=== PATIENT | female | born 1965 | race Caucasian/White ===

== ENCOUNTER 2021-03-09 08:36 | Outpatient (REF) | payer OTHER, SELFPAY ==
--- NOTE | ~2021-03-09 | MM_ITS ---
EXAMINATION: MM SCREENING DIGITAL BREAST TOMOSYNTHESIS, BILATERAL CLINICAL INFORMATION: Screening. Asymptomatic. The lifetime risk of breast cancer based on the Tyrer-Cuzick Model is 9%. COMPARISON: Mammography: 03/08/2020, 04/11/2014 TECHNIQUE: Digital breast tomosynthesis is performed in both the craniocaudal and mediolateral oblique views along with computer-aided detection (CAD). Synthesized 2D images are generated from the tomosynthesis. FINDINGS: There are scattered areas of fibroglandular density (ACR BI-RADS breast composition Category b). There are no significant masses, abnormal calcifications, or other abnormalities. There is asymmetry of the breasts, left slightly larger, similar to prior exam. Fine fibronodular pattern is similar to prior exam. No developing density. The axilla are unremarkable. MM/MM tomosynthesis screening BI IMPRESSION: No mammographic evidence of malignancy. ASSESSMENT: BI-RADS 2: Benign RECOMMENDATION: Routine annual mammography screening. This patient's information was entered into a reminder system with a target due date for their next mammogram.
== END 2021-03-09 08:37 | disposition home or self-care (01) ==
LOC: HO.MAMMO 08:36
PROVIDERS: PCP Family Medicine; Visit Provider Hospitalist
DX: Z12.31 Encounter for screening mammogram for malignant neoplasm of breast (principal)
CPT/HCPCS: 77063; 77067

== ENCOUNTER 2021-06-29 09:55 | Outpatient (REF) | payer OTHER, SELFPAY ==
[2021-06-29 11:43] LABS: Hematocrit 41.9 % (37.0-47.0); Hemoglobin 14.3 g/dl (12.0-16.0); Mean Corpuscular HGB Conc 34.1 g/dl (31.0-35.0); Mean Corpuscular Hemoglobin 29.7 pg (27.0-33.0); Mean Corpuscular Volume 86.9 fL (80.0-98.0); Mean Platelet Volume 10.9 fL (9.4-12.3); Platelet Count 205 X10*3/uL (160-400); Red Blood Count 4.82 X10*6/uL (4.20-5.50); Red Cell Distribution Width 12.9 % (11.0-16.0)
[2021-06-29 12:10] LABS: Alanine Aminotransferase 17 U/L (0-31); Albumin Level 3.8 g/dL (3.5-5.0); Alkaline Phosphatase 153 U/L (39-117); Anion Gap 12 (12-20); Aspartate Amino Transferase 25 U/L (5-31); Bilirubin Total 0.4 mg/dL (0.0-1.0); Blood Urea Nitrogen 7 mg/dL (9-16); Calcium 8.9 mg/dL (8.4-10.2); Carbon Dioxide 25 mmol/L (22-29); Chloride 107 mmol/L (96-108); Cholesterol 158 mg/dL; Estimated Glomerular Filt Rate > 60; Glucose Fasting 157 mg/dL (60-99); HDL Cholesterol 33 mg/dL; LDL Cholesterol Calculated 93 mg/dl; Sodium 140 mmol/L (135-145); Total Protein 6.7 g/dL (6.5-8.0); Triglycerides 164 mg/dL
[2021-06-29 12:35] LABS: TSH reflex Free T4 0.98 uIU/mL (0.32-4.0)
== END 2021-06-29 09:56 | disposition home or self-care (01) ==
LOC: HO.WFDLDS 09:55
PROVIDERS: Visit Provider Hospitalist
DX: Z01.818 Encounter for other preprocedural examination (principal); E11.65 Type 2 diabetes mellitus with hyperglycemia
CPT/HCPCS: 36415; 80053; 80061; 84443; 85027

== ENCOUNTER 2022-01-25 12:07 | Outpatient (REF) | payer OTHER, SELFPAY ==
[2022-01-25 13:41] LABS: Alanine Aminotransferase 18 U/L (0-31); Alkaline Phosphatase 161 U/L (39-117); Anion Gap 9 (12-20); Aspartate Amino Transferase 29 U/L (5-31); Bilirubin Direct 0.2 mg/dL (0.0-0.5); Bilirubin Total 0.4 mg/dL (0.0-1.0); Blood Urea Nitrogen 5 mg/dL (9-16); Calcium 9.2 mg/dL (8.4-10.2); Carbon Dioxide 27 mmol/L (22-29); Chloride 108 mmol/L (96-108); Estimated Glomerular Filt Rate > 60; Glucose Random 99 mg/dL (60-115); Potassium 4.1 mmol/L (3.3-5.1); Sodium 140 mmol/L (135-145); Total Protein 6.9 g/dL (6.5-8.0)
[2022-01-25 13:49] LABS: Estimated Average Glucose 140 mg/dL; Hemoglobin A1c % 6.5 %
[2022-01-25 14:29] LABS: Vitamin B12 211 pg/mL (200-900)
== END 2022-01-25 12:08 | disposition home or self-care (01) ==
LOC: HO.WFDLDS 12:07
PROVIDERS: Absent Provider Nurse Practitioner Family; PCP Family Medicine; Referring Provider Physician Assistant; Visit Provider Hospitalist
DX: Z00.00 Encounter for general adult medical examination without abnormal findings (principal); E11.65 Type 2 diabetes mellitus with hyperglycemia; E53.8 Deficiency of other specified B group vitamins
CPT/HCPCS: 36415; 80048; 80076; 82607; 83036

== ENCOUNTER 2022-03-22 15:37 | Outpatient (REF) | payer OTHER, SELFPAY ==
--- NOTE | ~2022-03-22 | MM_ITS ---
EXAMINATION: MM SCREENING DIGITAL BREAST TOMOSYNTHESIS, BILATERAL CLINICAL INFORMATION: Screening. Asymptomatic. The lifetime risk of breast cancer based on the Tyrer-Cuzick Model is 8%. COMPARISON: Mammography: 03/09/2021, 03/08/2020, 04/11/2014 TECHNIQUE: Digital breast tomosynthesis is performed in both the craniocaudal and mediolateral oblique views along with computer-aided detection (CAD). Synthesized 2D images are generated from the tomosynthesis. FINDINGS: There are scattered areas of fibroglandular density (ACR BI-RADS breast composition Category b). There is chronic stable asymmetry of the breast, left slightly larger similar to prior exams. The right breast shows no significant change in the parenchymal pattern. No interval mass or architectural abnormality. Neither breast shows abnormal calcifications. The axilla and skin contours are unremarkable. Left breast has increased attenuation retroareolar region, possibly incompletely compressed fibroglandular tissue. Patient will be recalled for additional imaging. MM/MM tomosynthesis screening BI IMPRESSION: Left: -Parenchymal asymmetry retroareolar region, possibly incompletely breast fibroglandular tissue. Right: -No mammographic evidence of malignancy. ASSESSMENT: BI-RADS 0: Incomplete - Need Additional Imaging Evaluation RECOMMENDATION: 1. Additional views of the left breast (spot CC nipple in profile, spot ML nipple in profile). 2. Targeted ultrasound if warranted after review of the additional views. 3. Radiology department staff will contact the patient for additional imaging. This patient's information was entered into a reminder system with a target due date for their next mammogram.
== END 2022-03-22 15:38 | disposition home or self-care (01) ==
LOC: HO.MAMMO 15:37
PROVIDERS: Visit Provider Family Medicine
DX: Z12.31 Encounter for screening mammogram for malignant neoplasm of breast (principal)
CPT/HCPCS: 77063; 77067

== ENCOUNTER 2022-03-28 10:52 | Outpatient (REF) | payer OTHER, SELFPAY | END 2022-03-28 10:53 | disposition home or self-care (01) | LOC: HO.LNP 10:52 | PROVIDERS: Visit Provider Hospitalist | DX: Z20.822 Contact with and (suspected) exposure to COVID-19 (principal); R11.0 Nausea | CPT/HCPCS: U0003; U0005 ==

== ENCOUNTER 2022-05-04 14:44 | Outpatient (REF) | payer OTHER, SELFPAY ==
--- NOTE | ~2022-05-04 | MM_ITS ---
EXAMINATION: MM DIAGNOSTIC DIGITAL BREAST TOMOSYNTHESIS, LEFT CLINICAL INFORMATION: Retroareolar asymmetric density COMPARISON: Mammography: March 22, 2022 and studies dating back to April 11, 2014 TECHNIQUE: Digital breast tomosynthesis is performed. 2D images are generated from the tomosynthesis. The following views are obtained: Spot compression views in craniocaudal and mediolateral oblique projections. FINDINGS: There are scattered areas of fibroglandular density (ACR BI-RADS breast composition Category b). Additional views show no significant mass, architectural abnormality, or abnormal calcifications. The questioned density compresses out to a similar appearance of prior studies. Results are provided to the patient at time of visit by the technologist. MM/MM tomosynthesis added views L IMPRESSION: No significant changes from prior imaging. ASSESSMENT: BI-RADS 1: Negative RECOMMENDATION: Routine annual mammography screening due in 12 months. This patient's information was entered into a reminder system with a target due date for their next mammogram.
== END 2022-05-04 14:45 | disposition home or self-care (01) ==
LOC: HO.MAMMO 14:44
PROVIDERS: PCP Family Medicine; Visit Provider Family Medicine
DX: N64.89 Other specified disorders of breast (principal)
CPT/HCPCS: 77061; 77065

== ENCOUNTER 2023-02-09 08:02 | Outpatient (AMB) | payer OTHER, SELFPAY ==
--- NOTE | 2023-02-09 08:10 | MHC.PC.OV ---
Vital Signs 02/09/23 08:15 Height 5 ft 3 in Weight 188 lb 8 oz BMI 33.4 BP 110/64 Blood Pressure Location Lt brachial Position Sitting Respiration 14 Pulse 93 Pulse Source Pulse Oximeter Temp 97.6 F Temp Source Temporal Artery Scan Pulse Oximetry (%) 97 Oxygen Delivery Method Room Air Intake Visit Reasons: f/u diabetes Intake Note: Patient is here to follow up with diabetic care. Patient's last A1C 11/23/2022 6.3%. Patient states her numbers have been way too high and she feels her insulin needs to be adjusted, her weight is still out of control and her stomach is in pain. Electrical Power Engineer Required: No Accompanied by: Self / Same As Patient Allergies No Known Allergies Allergy (Verified 02/09/23 08:11) Tobacco use date assessed: 02/09/23 Dental Screening Dental Screen Date: 02/09/23 Did you have a dental visit in the last 12 months?: Yes Did you have a dental problem in the last 6 months where you did not have access to dental care?: No Was dental information given to patient?: Patient has dentist HPI f/u diabetes HPI Details 57 y/o female presents to f/u diabetes. Had changed Trulicity to Ozempic per pt's request. Last A1c 11/23/22 6.3%. She reports her blood sugars have been high ever since we had switched to Ozempic. She reports blood sugars in the 200s. She reports ongoing abdominal pain and nausea. HPI Comments History of Present Illness Details Documentation assistance for Rashaun Caballero MD, was provided by Steve Quezada,? Payroll Administrative Assistant on 02/09/2023 8:56 AM DAR. I, Dr. Caballero, have read, observed, and verified documentation.? [facility] Medical History Insulin dependent diabetes mellitus LARIOS (nonalcoholic steatohepatitis) Surgical History H/O repair of left rotator cuff History of bilateral carpal tunnel release History of facial surgery History of knee surgery History of loop electrical excision procedure (LEEP) History of sinus surgery Family History Father Skin cancer Mental health disorder Substance abuse Mother Ovarian cancer Diabetes Mental health disorder Maternal Aunt Breast cancer Maternal Uncle Lung cancer Family/Other Mental health disorder Family/Other Substance abuse Social History (Updated 02/09/23 @ 08:26 by Kiki Mitchell) Housing: House (mobile home) Housing Other:: mobile home Alcohol intake: current Alcohol intake frequency: a few times a month Patient Tobacco Use Status: Never used Tobacco e-Cigarette/Vaping Use: Never Used Second Hand Smoke Exposure: No Use of substances other than those prescribed or required for medical reasons: Yes Substance Use Type: Crack/Cocaine Last Used Substance: Weeks (ago) Last Used Substance Other:: 1 year ago Currently Displaying Signs/Symptoms of Drug Intoxication Withdrawal: No Have you been hit, kicked, punched, or otherwise hurt by someone within the past year? If so, by whom?: No Do you feel safe in your current relationship?: No Current Relationship Is there a partner from a previous relationship who is making you feel unsafe now?: No Are you made to feel afraid or neglected: No service: No Current occupational status: disabled Cognitive needs: No Hearing needs: No Vision needs: No Questionnaire Thrive Questionnaire Date Thrive assessed: 01/25/22 MARLEE-7 AMB Questionnaire MALREE-7 Date MARLEE - 7 assessed: 01/25/22 Source: Developed by Drs. Bradley King, Lian Nash, Boyd Hess and colleagues, with an educational gabriela from [employer]. Review of Systems Const Denies chills, Denies fatigue, Denies fever(s), Denies headache(s) and Denies weakness ENT Denies dizziness and Denies headache(s) Card Denies chest pain, Denies lightheadedness, Denies dyspnea and Denies other (Palpitations) Resp Denies cough, Denies dyspnea, Denies wheezing and Denies other ( shortness of breath) Musc Denies numbness and Denies tingling Neuro Denies dizziness, Denies headache(s), Denies numbness, Denies tingling, Denies paresthesias and Denies weakness Psych Denies anxiety and Denies depression Endo Denies fatigue Aller/Immun Denies wheezing Physical exam (Primary Care) Vital Signs: Last Vital Signs Temp 97.6 F 02/09/23 08:15 Pulse 93 02/09/23 08:15 Resp 14 02/09/23 08:15 BP 110/64 02/09/23 08:15 Pulse Ox 97 02/09/23 08:15 Oxygen Delivery Method Room Air 02/09/23 08:15 BMI result Body Mass Index 33.4 Tobacco/Smoking Status: Tobacco use Status Tobacco use date assessed 02/09/23 02/09/23 08:12 Patient Tobacco Use Status Never used Tobacco 02/09/23 08:26 e-Cigarette/Vaping Use Never Used 02/09/23 08:26 Thrive Assessment: Date of Thrive Assessment Date Thrive assessed 01/25/22 02/09/23 08:12 Const General: no acute distress and well developed Nutritional Appearance: well nourished Orientation/consciousness: patient oriented x3 HENMT Head: Yes normocephalic and Yes atraumatic Eyes General: appearance normal, both eyes and all related structures Pupils: Equal, round and reactive pupils present EOM: EOMs intact bilaterally Resp Effort & Inspection: normal respiratory effort Auscultation: clear to auscultation bilaterally Cardio Rate: regular rate Rhythm: regular rhythm Heart sounds: S1 normal heart sound present, S2 normal heart sound present, no gallops, no murmurs and no rubs Neuro General: patient oriented x3 and gait normal Cranial nerves: Yes Equal, round and reactive pupils present Psych Affect: normal affect Assessment and Plan Assessment & Plan (1) Diabetes: Code(s): E11.9 - Type 2 diabetes mellitus without complications Plan: Had switched patient to Ozempic at last visit as patient requested for her belief that it would improve her weight loss. Blood sugars have been high since this however Increasing Ozempic Continue diabetic diet and exercise Encouraged weight loss (2) Obesity (BMI 30.0-34.9): Code(s): E66.9 - Obesity, unspecified Plan: Discussed working on diet and exercise for weight loss Advised she discontinue soda Will continue to follow (3) Gastritis: Code(s): K29.70 - Gastritis, unspecified, without bleeding Plan: Gastritis, abdominal pain and nausea Continue pantoprazole and can use ondansetron sparingly Patient would like a referral to a new dairy clerk so [place] [facility] [place] Orders: Referrals Gastroenterology Referral K29.70 - Gastritis, unspecified, without bleeding, R10.9 - Unspecified abdominal pain, R11.0 - Nausea Medications: Changed From semaglutide (Ozempic) for 4 weeks 0.25 mg (0.4 mL) subcut QWEEK 28 days 1.6 mL 3RF To semaglutide (Ozempic) 0.5mg Weekly 0.5 mg (0.8 mL) subcut QWEEK 3.2 mL 3RF 28 days Refilled pantoprazole 40 mg PO DAILY 30 tabs 3RF 30 days Coding Level of Care Code Est Pt Level 4 (93975) Diagnoses Diabetes E11.9 Obesity (BMI 30.0-34.9) E66.9 Gastritis K29.70
[2023-02-09 08:15] VITALS: BP 110/64; PULSE 93; RESP 14; TEMP 36.4; O2SAT 97; BMI 33.4
== END 2023-02-09 09:05 | disposition home or self-care (01) ==
PROVIDERS: PCP Family Medicine; Visit Provider Family Medicine
DX: E11.9 Type 2 diabetes mellitus without complications (principal); Z68.34 Body mass index [BMI] 34.0-34.9, adult; E66.9 Obesity, unspecified; K29.70 Gastritis, unspecified, without bleeding
CPT/HCPCS: 99214

== ENCOUNTER 2023-02-23 08:03 | Outpatient (AMB) | payer OTHER, SELFPAY ==
--- NOTE | 2023-02-23 08:13 | A.OFFPC_ITS ---
Vital Signs 02/23/23 08:14 Height 5 ft 3 in Weight 190 lb 4 oz BMI 33.7 BP 108/58 L Blood Pressure Location Lt brachial Position Sitting Respiration 16 Pulse 100 Pulse Source Pulse Oximeter Temp 98.9 F Temp Source Temporal Artery Scan Pulse Oximetry (%) 96 Oxygen Delivery Method Room Air Intake Visit Reasons: Annual PE Intake Note: Patient presents for a physical today and would like to discuss her blood sugars being elevated, sensors for Miguelina 2, a gastroenterology referral for her stomach pains, and a tremor in her right hand. Patient also reports she was seen by endovascular and they informed her she has osteoporosis and she should ask her primary care doctor for medication for this diagnosis. Patient's last A1C was 6.3% on 11/23/22. Three Knife Trimmer Required: No Accompanied by: Self / Same As Patient Allergies No Known Allergies Allergy (Verified 02/23/23 08:30) Medication List - Last Reconciled 02/23/23 by Donavon Grande CNP blood sugar diagnostic (FreeStyle Lite Strips) DX: E11.9, test blood sugar 3 times a day, 90 days blood-glucose meter (FreeStyle Lite Meter kit) DX: E11.9, test blood sugar 3 times a day, duration 999 days blood-glucose sensor (FreeStyle Miguelina 3 Sensor device) As directed, 28 days bupropion HCl 300 mg PO QAM calcium polycarbophil (FiberCon) 625 mg PO DAILY 30 days cyanocobalamin (vitamin B-12) 1,000 mcg PO DAILY 90 days erenumab-aooe (Aimovig Autoinjector) mg subcut insulin glargine (Lantus Solostar U-100 Insulin) 30 units (0.3 mL) subcut DAILY 30 days lancets (FreeStyle Lancets) As directed lancets (FreeStyle Lancets) As directed miscellaneous medical supply Diabetic shoes, daily As directed. 999days/lifetime. One pair miscellaneous medical supply diabetic shoes as directed; ondansetron HCl 8 mg PO Q12H PRN 30 days pantoprazole 40 mg PO DAILY 30 days pen needle, diabetic (BD Ultra-Fine Mini Pen Needle) 1 ea miscellaneous TID-QID prazosin 2 mg PO BEDTIME semaglutide (Ozempic) 0.5 mg (0.736 mL) subcut QWEEK 28 days topiramate 50 mg PO BID 1 month vortioxetine (Trintellix) 20 mg PO DAILY ziprasidone HCl 40 mg PO BID Tobacco use date assessed: 02/09/23 Dental Screening Dental Screen Date: 02/23/23 Did you have a dental visit in the last 12 months?: No Did you have a dental problem in the last 6 months where you did not have access to dental care?: No Was dental information given to patient?: Patient declined HPI HPI Comments History of Present Illness Details 57-year-old female presents for a follow-up visit. She has past medical history significant for type 2 diabetes and gastritis. She was seen by her PCP on 02/01/2023 for both diabetes and gastritis. Ozempic was increased to 0.5 mg weekly. She was advised to continue take pantoprazole for gastritis and was referred to GI. She notes she generally maintains a healthy diet except for sugar drinks such as soda; she intends to cut down on her sugar intake. She requests a refill for miguelina 2. She states she was evaluated by endovascular and was informed she has osteoporosis; she requests medication for osteoporosis. [facility] [place] Medical History Insulin dependent diabetes mellitus LARIOS (nonalcoholic steatohepatitis) Surgical History H/O repair of left rotator cuff History of bilateral carpal tunnel release History of facial surgery History of knee surgery History of loop electrical excision procedure (LEEP) History of sinus surgery Family History Father Skin cancer Mental health disorder Substance abuse Mother Ovarian cancer Diabetes Mental health disorder Maternal Aunt Breast cancer Maternal Uncle Lung cancer Family/Other Mental health disorder Family/Other Substance abuse Social History Housing: House (mobile home) Housing Other:: mobile home Alcohol intake: current Alcohol intake frequency: a few times a month Patient Tobacco Use Status: Never used Tobacco e-Cigarette/Vaping Use: Never Used Second Hand Smoke Exposure: No Substance Use Type: Crack/Cocaine service: No Current occupational status: disabled Current occupational exposures/hazards: No Cognitive needs: No Hearing needs: No Vision needs: No Questionnaire Thrive Questionnaire Date Thrive assessed: 01/25/22 MARLEE-7 AMB Questionnaire MARLEE-7 Date MARLEE - 7 assessed: 01/25/22 Source: Developed by Drs. Bradley King, Lian Nash, Boyd Hess and colleagues, with an educational gabriela from [email or web address]. Review of Systems Const Details: Const Denies chills, Denies fatigue, Denies fever(s), Denies headache(s) and Denies weakness ENT Denies dizziness and Denies headache(s) Card Denies chest pain, Denies lightheadedness, Denies dyspnea and Denies other (Palpitations) Resp Denies cough, Denies dyspnea, Denies wheezing and Denies other ( shortness of breath) GI Denies abdominal pain, Denies melena, Denies hematochezia, Denies change in bowel habits, Denies dyspepsia and Denies nausea Denies hematuria and Denies dysuria Musc Denies abnormal gait, Denies myalgias, Denies arthralgias, Denies numbness and Denies tingling Skin/Breast Denies rash, Denies unusual bruising and Denies wounds Neuro Denies abnormal gait, Denies dizziness, Denies headache(s), Denies memory loss, Denies numbness, Denies Sensory deficit (Neuro), Denies tingling and Denies weakness Psych Denies anxiety, Denies depression, Denies memory loss Endo Denies cold intolerance, Denies fatigue, Denies heat intolerance, Denies polydipsia and Denies polyuria Aller/Immun Denies wheezing Physical exam (Primary Care) Vital Signs: Last Vital Signs Temp 98.9 F 02/23/23 08:14 Pulse 100 02/23/23 08:14 Resp 16 02/23/23 08:14 BP 108/58 L 02/23/23 08:14 Pulse Ox 96 02/23/23 08:14 Oxygen Delivery Method Room Air 02/23/23 08:14 BMI result Body Mass Index 33.7 Tobacco/Smoking Status: Tobacco use Status Tobacco use date assessed 02/09/23 02/23/23 08:23 Patient Tobacco Use Status Never used Tobacco 02/23/23 08:23 e-Cigarette/Vaping Use Never Used 02/23/23 08:23 Thrive Assessment: Date of Thrive Assessment Date Thrive assessed 01/25/22 02/23/23 08:23 Const Other: General: no acute distress and well developed Nutritional Appearance: well nourished Orientation/consciousness: patient oriented x3 [facility] Head: Yes normocephalic and Yes atraumatic Eyes General: appearance normal, both eyes and all related structures Pupils: Equal, round and reactive pupils present EOM: EOMs intact bilaterally Resp Effort & Inspection: normal respiratory effort Auscultation: clear to auscultation bilaterally Cardio Rate: regular rate Rhythm: regular rhythm Heart sounds: S1 normal heart sound present, S2 normal heart sound present, no gallops, no murmurs and no rubs GI Palpation (GI): No Abdominal aortic bruit present, Soft to palpation, tender RLQ, No hepatosplenomegaly present and No Rebound tenderness present. Negative Connolly, psoas, obturator, and Rovsing signs. Auscultation: normal bowel sounds General: Yes no CVA tenderness Back/Spine/Pelvis Back: no CVA tenderness Cervical Spine: cervical ROM normal and No Cervical spine tenderness Thoracic/Lumbar Spine: thoraco-lumbar ROM normal, No pain with thoraco-lumbar ROM, No thoracic spinal tenderness and No lumbar spinal tenderness Extrem General: Yes normal to inspection, No edema and No calf tenderness Skin General: warm and dry. Normal skin color. Normal skin turgor Lesions: no lesions Rashes: no rashes Neuro General: patient oriented x3, gait normal and no focal neuro deficit Cranial nerves: Yes Equal, round and reactive pupils present Cognition (Neuro): normal cognition Gait exam (Neuro): Normal gait present Sensory Exam: No Sensory deficit (Neuro) Psych Appearance: grossly normal Affect: normal affect Attitude: cooperative Thought process: Normal thought process present Results AMB Hemoglobin A1c AMB Hemoglobin A1c 7.7 % Last Edit by Kiki Mitchell on 02/23/23 08:3 7 Assessment and Plan Assessment & Plan (1) Diabetes: Code(s): E11.9 - Type 2 diabetes mellitus without complications Plan: Her A1c 7.7% today, above goal of less than 7.0% Ozempic increased to 1 mg weekly. Take as prescribed Continue to take Lantus as prescribed Miguelina 2 monitor ordered ADA diet and routine exercise encouraged Advised to provide and vascular report regarding osteoporosis to her PCP Follow-up with PCP as planned later this month Return sooner with symptoms or concerns Verbalized understanding and agreed with treatment plan. (2) Gastritis: Code(s): K29.70 - Gastritis, unspecified, without bleeding Plan: Tender RLQ Negative Connolly, psoas, obturator, and Rovsing signs Pantoprazole as prescribed She has an active referral to GI that was placed 2 weeks ago. Informed that she will be contacted by GI Return with worsening or new symptoms Verbalized understanding and agreed with treatment plan. Medications: New semaglutide 1 mg (0.75 mL) subcut QWEEK 3 mL 3RF 28 days flash glucose sensor (FreeStyle Miguelina 2 Sensor kit) As directed 1 ea 2RF E11.9 - Type 2 diabetes mellitus without complications Discontinued semaglutide (Ozempic) 0.5mg Weekly Discontinued Reason: Doctor's Order 0.5 mg (0.736 mL) subcut QWEEK 3.2 mL 3RF 28 days Coding Level of Care Code Est Pt Level 3 (18198) Diagnoses Diabetes E11.9 Gastritis K29.70 Time Spent (min) 25
[2023-02-23 08:14] VITALS: BP 108/58; PULSE 100; RESP 16; TEMP 37.2; O2SAT 96; BMI 33.7
== END 2023-02-23 08:55 | disposition home or self-care (01) ==
PROVIDERS: PCP Family Medicine; Visit Provider Nurse Practitioner Family
DX: E11.9 Type 2 diabetes mellitus without complications (principal); K29.70 Gastritis, unspecified, without bleeding; Z01.818 Encounter for other preprocedural examination; E11.65 Type 2 diabetes mellitus with hyperglycemia
CPT/HCPCS: 83036; 99213

== ENCOUNTER 2023-03-06 08:06 | Outpatient (AMB) | payer OTHER, SELFPAY ==
--- NOTE | 2023-03-06 08:11 | A.OFFVIS_ITS ---
Intake Vital Signs 03/06/23 08:15 Height 5 ft 3 in Weight 186 lb BMI 32.9 BP 134/74 Blood Pressure Location Lt brachial Position Sitting Pulse 76 Temp 97.5 F Intake Visit Reasons: Unspecified abdominal pain Intake Note: New consult for abdominal pain. Patient cc: abdominal pain/bloating, vomiting, constipation with dark stool, and some swallowing problems even with her saliva. Cabinet Finisher Required: No Accompanied by: Self / Same As Patient Allergies No Known Allergies Allergy (Verified 03/06/23 08:10) HPI HPI Comments History of Present Illness Details A 57 y/o female with nausea and vomiting for the past year- She had an EGD and colonoscopy at [facility]-about 4 months ago- She called to be seen- told her to go to the [facility] ER- - She does not want to go to ER- they want her to have a CT scan She is taking zofran that helps- she vomits QOD- acid - taking pantoprazole 40 mg for the past 4 month- She had Dr. Zimmerman, she now follows with Arsenio Hickman- last seen 3 months ago-called with abdominal pain recommended she go to ED due to her history of diverticulosis. She also did have other testing done that she has not followed up with them for as of yet. She is unable to give details Constipation, history diverticulosis- wandering abdominal pain- no pain today, no rectal bleeding - Appetite is fairly good-no nausea or vomiting today or the past couple days She is DM- too high [facility] Medical History (Updated 03/06/23 @ 12:13 by Sol Love PA-C) Insulin dependent diabetes mellitus LARIOS (nonalcoholic steatohepatitis) Surgical History (Updated 03/06/23 @ 12:01 by Sol Love PA-C) H/O repair of left rotator cuff History of bilateral carpal tunnel release History of facial surgery History of knee surgery History of loop electrical excision procedure (LEEP) History of sinus surgery Family History Father Skin cancer Mental health disorder Substance abuse Mother Ovarian cancer Diabetes Mental health disorder Maternal Aunt Breast cancer Maternal Uncle Lung cancer Family/Other Mental health disorder Family/Other Substance abuse Social History Housing: House (mobile home) Housing Other:: mobile home Alcohol intake: current Alcohol intake frequency: a few times a month Patient Tobacco Use Status: Never used Tobacco e-Cigarette/Vaping Use: Never Used Second Hand Smoke Exposure: No Substance Use Type: Crack/Cocaine service: No Current occupational status: disabled Current occupational exposures/hazards: No Cognitive needs: No Hearing needs: No Vision needs: No Review of Systems Const All systems reviewed & are unremarkable except as noted in HPI and below Card Denies chest pain GI Reports abdominal pain (Intermittent), Denies hematochezia, Reports constipation, Reports heartburn, Reports nausea and Reports vomiting (Intermittent) Psych Reports depression, Denies homicidal ideation and Denies suicidal ideation Physical Exam Vital Signs: Last Vital Signs Temp 97.5 F 03/06/23 08:15 Pulse 76 03/06/23 08:15 BP 134/74 03/06/23 08:15 BMI result Body Mass Index 32.9 Const General: cooperative, healthy appearing, comfortable and no acute distress Orientation/consciousness: patient oriented x3 Limitations: no limitations Eyes Sclerae: sclerae normal Resp Effort & Inspection: normal respiratory effort and able to speak in complete sentences Auscultation: clear to auscultation bilaterally, no rales, no rhonchi and no wheezes Cardio Rate: regular rate Rhythm: regular rhythm Heart sounds: S1 normal heart sound present and S2 normal heart sound present GI Palpation (GI): Soft to palpation and nontender Auscultation: normal bowel sounds Skin General skin exam: no rashes or lesions noted Neuro General: patient oriented x3 Extrem General: Yes full ROM Right lower extremity: knee (Well-healed scar) Left lower extremity: knee (Well-healed scar) Psych Speech and movement: Clear speech present Affect: normal affect Attitude: cooperative Thought process: Circumstantial thought process present Thought content: Normal thought content present Results Reviewed Results Reviewed: No GI record for review Assessment & Plan Assessment & Plan (1) Nausea: Comment: Long GI history, followed with EGD colonoscopy, medications details not clear- currently still being followed at [facility] with good response Code(s): R11.0 - Nausea [facility] (2) Abdominal pain: Comment: Afebrile- abdomen soft- NT- GI history is unclear, per patient awaiting results from further GI testing with [facility] Code(s): R10.9 - Unspecified abdominal pain Plan: Follow-up with Primary office services coordinator if pain persists go to the ED as recommended (3) History of colonoscopy: Code(s): Z98.890 - Other specified postprocedural states Plan: [facility] 3-4 months ago-follows with Rocky Wilkerson (4) History of esophagogastroduodenoscopy (EGD): Code(s): Z98.890 - Other specified postprocedural states Plan: 3-4 months ago [facility] Plan REC- go to [facility] ED if abdominal pain recurs- they have recent records- primary GI there ER protocol for diverticulosis/ diverticulitis Patient Instructions: 57-year-old afebrile female history of diverticulosis, recent EGD colonoscopy as well as follow-up with primary office services coordinator-for continuity Symptoms today somewhat vague on exam no abdominal tenderness, a febrile, has had no nausea vomiting today Recommend follow-up with primary office services coordinator-go to ED with any recurrent of abdominal pain due to history-again reviewed diverticulosis/diverticulitis ER protocol Appreciate the opportunity assist in the care the patient Coding Level of Care Code New Pt Level 4 (89516) Diagnoses Nausea R11.0 Abdominal pain R10.9 History of colonoscopy Z98.890 History of esophagogastroduodenoscopy (EGD) Z98.890 Time Spent (min) 50
[2023-03-06 08:15] VITALS: BP 134/74; PULSE 76; TEMP 36.4; BMI 32.9
== END 2023-03-06 09:01 | disposition home or self-care (01) ==
LOC: HO.HGIW 08:06
PROVIDERS: PCP Family Medicine; Visit Provider Physician Assistant
DX: R11.0 Nausea (principal); R10.9 Unspecified abdominal pain; Z98.890 Other specified postprocedural states
CPT/HCPCS: 99204

== ENCOUNTER → 2023-03-06 08:06 | Outpatient (BNVA) | payer OTHER, SELFPAY | PROVIDERS: PCP Family Medicine; Visit Provider Physician Assistant | DX: R10.9 Unspecified abdominal pain (principal); R11.0 Nausea; Z98.890 Other specified postprocedural states | CPT/HCPCS: 99202 ==

== ENCOUNTER 2023-05-01 12:56 | Outpatient (AMB) | payer OTHER, SELFPAY ==
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
[2023-05-01 13:01] VITALS: BP 102/54; PULSE 89; RESP 16; TEMP 37.1; O2SAT 99; BMI 32.9
== END 2023-05-01 15:10 | disposition home or self-care (01) ==
PROVIDERS: PCP Family Medicine; Visit Provider Family Medicine
DX: Z00.00 Encounter for general adult medical examination without abnormal findings (principal); E11.9 Type 2 diabetes mellitus without complications; M48.50XA Collapsed vertebra, not elsewhere classified, site unspecified, initial encounter for fracture; B37.9 Candidiasis, unspecified; G43.909 Migraine, unspecified, not intractable, without status migrainosus; M25.50 Pain in unspecified joint
CPT/HCPCS: 99214; 99396

== ENCOUNTER 2023-05-29 08:42 | Outpatient (REF) | payer OTHER, SELFPAY ==
--- NOTE | ~2023-05-29 | MM_ITS ---
EXAMINATION: BONE DENSITOMETRY CLINICAL INDICATION: Osteoporosis. COMPARISON: This is the patient's baseline examination. TECHNIQUE: Using a Mila DXA System (software version: 13.1) manufactured by [employer], dual-energy x-ray absorptiometry was performed of the lumbar spine and left hip. The images are of good technical quality. Summary results are attached. FINDINGS: LEFT FEMUR, NECK: BMD 0.866 g/cm2, Z-score -0.5, T-score -1.2, osteopenia. LEFT FEMUR, TOTAL: BMD 0.966 g/cm2, Z-score 0.0, T-score -0.3, normal. AP SPINE L2-L4 (excluding L1): The data of L1-L4 has been changed to exclude the L1 vertebral body, because increased density related to kyphoplasty at this level may cause overestimation of lumbar spine density. BMD 1.005 g/cm2, Z-score -1.3, T-score -1.6, osteopenia. IDENTIFIED RISK FACTORS: Early menopause, height loss, history of fracture (adult), low calcium intake, recurrent falls, secondary osteoporosis (chronic liver disease). HISTORY OF FRACTURE: Other. MEDICATIONS: Vitamin D. MM/XR DEXA axial skeleton IMPRESSION: 1. DIAGNOSIS: Osteopenia based on the lowest T-score value of -1.6 in the lumbar spine applying World Health Organization criteria. 2. 10-YEAR FRACTURE RISK PREDICTION, FRAX: Major osteoporotic fracture (clinical spine, forearm, hip or shoulder) 10.6%. Hip fracture 0.7%. 3. Treatment Recommendations: NOF guidelines recommend consideration for treatment in postmenopausal women and men age 50 and older presenting with the following: -A hip or vertebral (clinical or morphometric) fracture. -T-score less than or equal to -2.5 at the femoral neck or spine after appropriate evaluation to exclude secondary causes. -Low bone mass at the hip or spine and a 10-year fracture probability by FRAX of greater than or equal to 3% for hip fracture or greater than or equal to 20% for major osteoporotic fracture based on the [place] adapted WHO algorithm. 4. Other Recommendations: All treatment decisions require clinical judgment and consideration of individual patient factors, including patient preferences, comorbidities, previous drug use, risk factors not captured in the FRAX model (e.g. frailty, falls, vitamin D deficiency, increased bone turnover, interval significant decline in bone density) and possible under or overestimation of fracture risk by FRAX. Additional medical evaluation for secondary cause of low bone mineral density may be appropriate. FUTURE SCAN RECOMMENDATION: People with diagnosed cases of osteoporosis or at high risk for fracture should have regular bone mineral density tests. For patients eligible for Medicare, routine testing is allowed once every 2 years. The testing frequency can be increased to one year for patients who have rapidly progressing disease, those who are receiving or discontinuing medical therapy to restore bone mass, or have additional risk factors.
== END 2023-05-29 08:43 | disposition home or self-care (01) ==
LOC: HO.MAMMO 08:42
PROVIDERS: PCP Family Medicine; Visit Provider Family Medicine
DX: Z13.820 Encounter for screening for osteoporosis (principal); M81.0 Age-related osteoporosis without current pathological fracture; Z78.0 Asymptomatic menopausal state
CPT/HCPCS: 77080

== ENCOUNTER 2023-07-12 11:10 | Outpatient (AMB) | payer OTHER, SELFPAY ==
--- NOTE | 2023-07-12 11:31 | A.OFFPC_ITS ---
Vital Signs 07/12/23 11:33 Height 5 ft 3 in Weight 180 lb BMI 31.9 BP 122/66 Blood Pressure Location Lt brachial Position Sitting Respiration 13 Pulse 91 Pulse Source Pulse Oximeter Pulse Oximetry (%) 99 Oxygen Delivery Method Room Air Intake Visit Reasons: DM Follow Up Intake Note: Patient is here to follow up on her diabetic care. Patient reports she needs to see cut off saw operator metal per her insurance to approve the freestyle sensors. Teresa nurse navigator is aware and will speak to patient after she is seen by her provider. Patient is looking to obtain her pneumonia vaccine and the pharmacy will not give her one without her doctor informing her which pneumonia shot to have. Patient reports she needs a prescription for a rolling bedside table, 3 wheeled rollator and a tall cane to be sent to [facility]. Patient also needs a RX for diabetic shoes to go to [facility]. Patient is requesting a topical cream to help her relax muscles and aloe nasal spray for allergens to be sent to [facility]. Patient is requesting an ENT referral. Transfer Engineer Required: No Accompanied by: Self / Same As Patient Allergies No Known Allergies Allergy (Verified 07/12/23 11:39) Tobacco use date assessed: 02/09/23 HPI DM Follow Up HPI Details 57 y/o female presents to f/u diabetes. Last A1c in February 7.7%. A1c today 07/12/23 6.1%. She is on ozempic 1mg, Lantus 30 units. Has lost about 10 lbs since February. Pt reports leg cramp/foot cramps. COUNTS INCLUDE 234 BEDS AT THE [facility] Medical History Insulin dependent diabetes mellitus LARIOS (nonalcoholic steatohepatitis) Surgical History H/O repair of left rotator cuff History of bilateral carpal tunnel release History of facial surgery History of knee surgery History of loop electrical excision procedure (LEEP) History of sinus surgery Family History Father Skin cancer Mental health disorder Substance abuse Mother Ovarian cancer Diabetes Mental health disorder Maternal Aunt Breast cancer Maternal Uncle Lung cancer Family/Other Mental health disorder Family/Other Substance abuse Social History Housing: House (mobile home) Housing Other:: mobile home Alcohol intake: current Alcohol intake frequency: a few times a month Patient Tobacco Use Status: Never used Tobacco e-Cigarette/Vaping Use: Never Used Second Hand Smoke Exposure: No Substance Use Type: Crack/Cocaine service: No Current occupational status: disabled Current occupational exposures/hazards: No Cognitive needs: No Hearing needs: No Vision needs: No Questionnaire Thrive Questionnaire Date Thrive assessed: 05/01/23 MARLEE-7 AMB Questionnaire MARLEE-7 Date MARLEE - 7 assessed: 05/01/23 Source: Developed by Drs. Bradley King, Lian Nash, Boyd Hess and colleagues, with an educational gabriela from [employer]. Review of Systems Const Denies chills, Denies fatigue, Denies fever(s), Denies headache(s) and Denies weakness ENT Denies dizziness and Denies headache(s) Card Denies dyspnea Resp Denies cough, Denies dyspnea, Denies wheezing and Denies other (shortness of breath) Musc Denies numbness and Denies tingling Neuro Denies dizziness, Denies headache(s), Denies numbness, Denies tingling and Denies weakness Psych Denies anxiety and Denies depression Endo Denies fatigue Aller/Immun Denies wheezing Physical exam (Primary Care) Vital Signs: Last Vital Signs Pulse 91 07/12/23 11:33 Resp 13 07/12/23 11:33 BP 122/66 07/12/23 11:33 Pulse Ox 99 07/12/23 11:33 Oxygen Delivery Method Room Air 07/12/23 11:33 BMI result Body Mass Index 31.9 Tobacco/Smoking Status: Tobacco use Status Tobacco use date assessed 02/09/23 07/12/23 11:32 Patient Tobacco Use Status Never used Tobacco 07/12/23 11:32 e-Cigarette/Vaping Use Never Used 07/12/23 11:32 Thrive Assessment: Date of Thrive Assessment Date Thrive assessed 05/01/23 07/12/23 11:32 Const General: well developed; No acute distress Nutritional Appearance: well nourished Orientation/consciousness: patient oriented x3 HENMT Other: Nasal polyp L nare Erosion of R side of nasal septum Head: Yes normocephalic and Yes atraumatic Eyes General: appearance normal, both eyes and all related structures Pupils: Equal, round and reactive pupils present EOM: EOMs intact bilaterally Resp Effort & Inspection: normal respiratory effort Neuro General: patient oriented x3 and gait normal Cranial nerves: Yes Equal, round and reactive pupils present Psych Affect: normal affect Results AMB Hemoglobin A1c AMB Hemoglobin A1c 6.1 % Last Edit by Kiki Mitchell CMA on 07/12/23 12:22 Results Reviewed Results Reviewed: Laboratory Last Values Hgb A1c (Clinic) 6.1 % (4.0-6.0) H 07/12/23 12:21 Assessment and Plan Assessment & Plan (1) Diabetes: Code(s): E11.9 - Type 2 diabetes mellitus without complications Plan: A1c?now?6.1%.??Good?control She?wants?to?reduce?her?insulin?and?increase?Ozempic. She?has?also?had?a?10?lb?weight?loss?since?February Increase?Ozempic?and?decrease?Lantus?by?4?units?daily. Watch?blood?sugars?by?testing?strips?and?or?Miguelina?monitor. (2) Leg cramps: Code(s): R25.2 - Cramp and spasm Plan: Patient?requests?prescription?for Theraworx which?is?OTC Will?try?to?send?a?prescription?for?this (3) Erosion of nasal septum: Code(s): J34.2 - Deviated nasal septum Plan: Will?send?script?for?a?nasal?mucosal?moisturizer Referred?to?ENT Orders: Orders AMB Hemoglobin A1c Today Z13.9 - Encounter for screening, unspecified Referrals Endocrinology Referral E11.40 - Type 2 diabetes mellitus with diabetic neuropathy, unspecified, E11.9 - Type 2 diabetes mellitus without complications Nurse Navigator Referral E11.9 - Type 2 diabetes mellitus without complications Ear/Nose/Throat Referral J33.9 - Nasal polyp, unspecified, J34.2 - Deviated nasal septum Medications: New miscellaneous medical supply As directed, 999 days 1 ea 0RF E11.40 - Type 2 diabetes mellitus with diabetic neuropathy, unspecified, E11.9 - Type 2 diabetes mellitus without complications [theraworx] 1 appl topical BID 30 days PRN 210 mL 2RF Pain/Spasm Changed From semaglutide 1 mg (0.75 mL) subcut QWEEK 28 days 3 mL 3RF To semaglutide 2 mg (0.75 mL) subcut QWEEK 28 days 3 mL 3RF From Lantus Solostar U-100 Insulin (insulin glargine) WAQAS. No substitutions. 30 units (0.3 mL) subcut DAILY 30 days 15 mL 3RF NS To Lantus Solostar U-100 Insulin (insulin glargine) WAQAS. No substitutions. 26 units (0.26 mL) subcut DAILY 30 days 9 mL 3RF NS Refilled blood sugar diagnostic (FreeStyle Lite Strips) DX: E11.9, test blood sugar 3 times a day, 90 days 300 ea 4RF E11.65 - Type 2 diabetes mellitus with hyperglycemia, E11.9 - Type 2 diabetes mellitus without complications lancets (FreeStyle Lancets) As directed 300 ea 4RF DX: E11.9, test blood sugar 3 times a day, 90 day E11.65 - Type 2 diabetes mellitus with hyperglycemia, E11.9 - Type 2 diabetes mellitus without complications Coding Level of Care Code Est Pt Level 4 (46676) Diagnoses Diabetes E11.9 Leg cramps R25.2 Erosion of nasal septum J34.2
[2023-07-12 11:33] VITALS: BP 122/66; PULSE 91; RESP 13; O2SAT 99; BMI 31.9
== END 2023-07-12 12:30 | disposition home or self-care (01) ==
PROVIDERS: PCP Family Medicine; Visit Provider Family Medicine
DX: E11.9 Type 2 diabetes mellitus without complications (principal); R25.2 Cramp and spasm; J34.2 Deviated nasal septum; Z13.9 Encounter for screening, unspecified
CPT/HCPCS: 83036; 99214

== ENCOUNTER 2023-11-15 09:28 | Outpatient (AMB) | payer OTHER, SELFPAY ==
--- NOTE | 2023-11-15 10:07 | A.OFFPC_ITS ---
Vital Signs 11/15/23 10:19 Height 5 ft 3 in Weight 189 lb BMI 33.5 BP 112/76 Blood Pressure Location Rt brachial Position Sitting Respiration 14 Pulse 85 Pulse Source Pulse Oximeter Temp 97.5 F Temp Source Temporal Artery Scan Pulse Oximetry (%) 99 Oxygen Delivery Method Room Air Intake Visit Reasons: diabetic follow up Intake Note: Patient needs referrals for urology, podiatry( not Dr. Rubi), ENT ( not Dr. Montalvo), Dermatolgy ( not dr. Paez) Senior Financial Accountant Required: No Accompanied by: Self / Same As Patient Allergies Seasonal Allergies Allergy (Intermediate, Verified 11/15/23 10:25) Itchy Eyes Medication List - Last Reconciled 11/15/23 by Rashaun Caballero MD blood sugar diagnostic (FreeStyle Lite Strips) DX: E11.9, test blood sugar 3 times a day, 90 days blood-glucose meter (FreeStyle Lite Meter kit) DX: E11.9, test blood sugar 3 times a day, duration 999 days blood-glucose sensor (FreeStyle Miguelina 3 Sensor device) As directed, 28 days buspirone 30 mg PO BID calcium polycarbophil (FiberCon) 625 mg PO DAILY 30 days cariprazine (Vraylar) 3 mg PO DAILY cyanocobalamin (vitamin B-12) 1,000 mcg PO DAILY 90 days diclofenac sodium 1% (Arthritis Pain (diclofenac)) 2 grams topical QID PRN 3 days erenumab-aooe (Aimovig Autoinjector) mg subcut hjtmpskbyvd-iyebvhaff-kguhgppt 100-62.5-25 mcg (Trelegy Ellipta) 1 inh inhalation DAILY hydroxyzine HCl 50 mg PO BID ipratropium-albuterol 0.5 mg-3 mg(2.5 mg base)/3 mL 3 mL inhalation Q6-8H PRN ketoconazole 2% 1 appl topical 2XW 14 days Lactobac. rhamnosus GG-inulin 12 billion cell -200 mg ([facility] [employer]) 1 cap PO DAILY 30 days Lactobacillus acidophilus 10,000 mmu cells PO DAILY 30 days lancets (FreeStyle Lancets) As directed Lantus Solostar U-100 Insulin (insulin glargine) 26 units (0.26 mL) subcut DAILY 30 days NS lidocaine 5% 1 patch topical DAILY loratadine 10 mg PO DAILY miscellaneous medical supply As directed, 999 days miscellaneous medical supply diabetic shoes as directed; miscellaneous medical supply 1 pair diabetic shoes, Daily As directed, 999 days nortriptyline 25 mg PO BEDTIME pantoprazole 40 mg PO DAILY 30 days pen needle, diabetic (BD Ultra-Fine Mini Pen Needle) 1 ea miscellaneous TID-QID prazosin 5 mg PO BEDTIME semaglutide 2 mg (0.75 mL) subcut QWEEK 28 days [theraworx 1 appl topical BID PRN 30 days] topiramate 50 mg PO BID 1 month Tobacco use date assessed: 11/15/23 Dental Screening Dental Screen Date: 11/15/23 Did you have a dental visit in the last 12 months?: Yes Did you have a dental problem in the last 6 months where you did not have access to dental care?: No Was dental information given to patient?: Patient has dentist HPI diabetic follow up HPI Details 57 y/o female presents to f/u diabetes. left w/o being seen [facility] Medical History Insulin dependent diabetes mellitus LARIOS (nonalcoholic steatohepatitis) Surgical History History of bilateral carpal tunnel release History of knee surgery History of loop electrical excision procedure (LEEP) H/O repair of left rotator cuff History of sinus surgery History of facial surgery Family History Father Skin cancer Mental health disorder Substance abuse Mother Ovarian cancer Diabetes Mental health disorder Maternal Aunt Breast cancer Maternal Uncle Lung cancer Family/Other Mental health disorder Family/Other Substance abuse Social History (Updated 11/15/23 @ 10:30 by TJ Lindsay) Household Members: Family Both parents involved: No Caregiver staying overnight: No Housing: House (mobile home) Housing Other:: mobile home Do you presently have visiting nurse or other home services: No 75 years or older and lives alone: No Alcohol intake: current Alcohol intake frequency: a few times a month Patient Tobacco Use Status: Never used Tobacco e-Cigarette/Vaping Use: Never Used Second Hand Smoke Exposure: No Substance Use Type: Crack/Cocaine service: No Current occupational status: disabled Current occupational exposures/hazards: No Cognitive needs: No Hearing needs: No Vision needs: No Questionnaire Thrive Questionnaire Date Thrive assessed: 05/01/23 MARLEE-7 AMB Questionnaire MARLEE-7 Date MARLEE - 7 assessed: 05/01/23 Source: Developed by Drs. Bradley King, Lian Nash, Boyd Hess and colleagues, with an educational gabriela from [employer]. Physical exam (Primary Care) Vital Signs: Last Vital Signs Temp 97.5 F 11/15/23 10:19 Pulse 85 11/15/23 10:19 Resp 14 11/15/23 10:19 BP 112/76 11/15/23 10:19 Pulse Ox 99 11/15/23 10:19 Oxygen Delivery Method Room Air 11/15/23 10:19 BMI result Body Mass Index 33.5 Tobacco/Smoking Status: Tobacco use Status Tobacco use date assessed 11/15/23 11/15/23 10:29 Patient Tobacco Use Status Never used Tobacco 11/15/23 10:30 e-Cigarette/Vaping Use Never Used 11/15/23 10:30 Thrive Assessment: Date of Thrive Assessment Date Thrive assessed 05/01/23 11/15/23 10:07 Results AMB Hemoglobin A1c AMB Hemoglobin A1c 8.6 % Last Edit by Kiki Mitchell CMA on 11/15/23 10:40 Results Reviewed Results Reviewed: Laboratory Last Values Hgb A1c (Clinic) 8.6 % (4.0-6.0) H 11/15/23 10:39 Assessment and Plan Assessment & Plan Orders: Orders AMB Hemoglobin A1c 11/15/23 E11.9 - Type 2 diabetes mellitus without complications Coding Level of Care Code Left Without Being Seen
[2023-11-15 10:19] VITALS: BP 112/76; PULSE 85; RESP 14; TEMP 36.4; O2SAT 99; BMI 33.5
== END 2023-11-15 12:35 | disposition left against medical advice (07) ==
PROVIDERS: PCP Family Medicine; Visit Provider Family Medicine
DX: E11.9 Type 2 diabetes mellitus without complications (principal)
CPT/HCPCS: 83036

== ENCOUNTER 2023-11-29 11:31 | Outpatient (AMB) | payer OTHER, SELFPAY ==
[2023-11-29 11:47] VITALS: BP 114/70; PULSE 105; RESP 15; TEMP 36.1; O2SAT 97; BMI 33.6
--- NOTE | 2023-11-29 11:47 | A.OFFPC_ITS ---
Vital Signs 11/29/23 11:47 Height 5 ft 3 in Weight 189 lb 8 oz BMI 33.6 BP 114/70 Blood Pressure Location Rt brachial Position Sitting Respiration 15 Pulse 105 H Pulse Source Pulse Oximeter Temp 97 F Temp Source Temporal Artery Scan Pulse Oximetry (%) 97 Oxygen Delivery Method Room Air Intake Visit Reasons: referrals Intake Note: Patient would like a referral to neurology due to old neurologist discharging her due to missing too many appts due to transportation. She also needs new referral to ENT that isnt Dr. Rowe. She needs a podiatry referral to someone other than Dr. Rubi. A endocrinology referral is needed for her diabetes. Dermalogist referral also needed. Patient needs new order for diabetic footwear sent to [facility]. Switch Engineer Required: No Accompanied by: Self / Same As Patient Allergies Seasonal Allergies Allergy (Intermediate, Verified 11/29/23 11:55) Itchy Eyes Tobacco use date assessed: 11/15/23 Dental Screening Dental Screen Date: 11/15/23 HPI referrals HPI Details Patient?returns?to?follow-up?diabetes A1c?was?controlled?in?June Had?increased?her?Ozempic?and?decrease?Lantus.??She?says?that?she?has?been?takin g?medication?as?pres cribed?but?her?blood?sugars?have?been?poorly?controlled.??She?also?notes?that?sh e?has?not?been?testing?as?much?and?has?not?been?able?to?get?her?continuous?gluco se?monitoring?sensors. She?would?like?to?go?back?to?[facility] She?would?like?a?referral?to?weight?management?as?well [facility] Medical History Insulin dependent diabetes mellitus LARIOS (nonalcoholic steatohepatitis) Surgical History History of bilateral carpal tunnel release History of knee surgery History of loop electrical excision procedure (LEEP) H/O repair of left rotator cuff History of sinus surgery History of facial surgery Family History Father Skin cancer Mental health disorder Substance abuse Mother Ovarian cancer Diabetes Mental health disorder Maternal Aunt Breast cancer Maternal Uncle Lung cancer Family/Other Mental health disorder Family/Other Substance abuse Social History Household Members: Family Both parents involved: No Caregiver staying overnight: No Housing: House (mobile home) Housing Other:: mobile home Do you presently have visiting nurse or other home services: No 75 years or older and lives alone: No Alcohol intake: current Alcohol intake frequency: a few times a month Patient Tobacco Use Status: Never used Tobacco e-Cigarette/Vaping Use: Never Used Second Hand Smoke Exposure: No Substance Use Type: Crack/Cocaine service: No Current occupational status: disabled Current occupational exposures/hazards: No Cognitive needs: No Hearing needs: No Vision needs: Yes Questionnaire Thrive Questionnaire Date Thrive assessed: 05/01/23 MARLEE-7 AMB Questionnaire MARLEE-7 Date MARLEE - 7 assessed: 05/01/23 Source: Developed by Drs. Bradley King, Lian Nash, Boyd Hess and colleagues, with an educational gabriela from [employer]. Review of Systems Const Denies chills, Denies fatigue, Denies fever(s), Denies headache(s) and Denies weakness ENT Denies dizziness and Denies headache(s) Card Denies dyspnea Resp Denies cough, Denies dyspnea, Denies wheezing and Denies other (shortness of breath) Musc Denies numbness and Denies tingling Neuro Denies dizziness, Denies headache(s), Denies numbness, Denies tingling and Denies weakness Psych Denies anxiety and Denies depression Endo Denies fatigue Aller/Immun Denies wheezing Physical exam (Primary Care) Vital Signs: Last Vital Signs Temp 97 F 11/29/23 11:47 Pulse 105 H 11/29/23 11:47 Resp 15 11/29/23 11:47 BP 114/70 11/29/23 11:47 Pulse Ox 97 11/29/23 11:47 Oxygen Delivery Method Room Air 11/29/23 11:47 BMI result Body Mass Index 33.6 Tobacco/Smoking Status: Tobacco use Status Tobacco use date assessed 11/15/23 11/29/23 11:52 Patient Tobacco Use Status Never used Tobacco 11/29/23 11:52 e-Cigarette/Vaping Use Never Used 11/29/23 11:52 Thrive Assessment: Date of Thrive Assessment Date Thrive assessed 05/01/23 11/29/23 11:52 Const General: well developed; No acute distress Nutritional Appearance: well nourished and obese Orientation/consciousness: patient oriented x3 HENMT Head: Yes normocephalic and Yes atraumatic Eyes General: appearance normal, both eyes and all related structures Pupils: Equal, round and reactive pupils present EOM: EOMs intact bilaterally Resp Effort & Inspection: normal respiratory effort Neuro General: patient oriented x3 and gait normal Cranial nerves: Yes Equal, round and reactive pupils present Psych Affect: normal affect Assessment and Plan Assessment & Plan (1) Diabetes: Code(s): E11.9 - Type 2 diabetes mellitus without complications Plan: A1c?at?last?visit?in?June?was?6.1%.??I?h ad?increased?Ozempic?and?decreased?Lantus?by?4?units?daily; 26 U qpm A1c?on?11/15/23 was?8.6%. As?she?is?taking?Lantus?26?units?each?evening?and?is?taking?Ozempic?weekly?as?pr escribed?but?her?blood?sug ars?are?not?well?controlled.??She?is?also?having?difficulty?with?getting?sensors ?and?monitoring?her?blood?sugars. Will?go?back?to?[facility]?which?was?working?better?for?her?and?she?will?increase ?Lantus?to?28?units?daily. Referred?to?endocrinology?at?patient's?request Patient?also?needs?new?diabetic?shoes?and?referral?to?Podiatry Script?for?shoes?printed Referral?to?Podiatry?is?made (2) Obesity (BMI 30.0-34.9): Code(s): E66.9 - Obesity, unspecified Plan: Patient?wanted?to?try?Ozempic ?and?increase?it?but?she?says?this?was?not?working?for?her She?would?like?a?referral?to?weight?management?which?I?have?made (3) Gastritis: Code(s): K29.70 - Gastritis, unspecified, without bleeding Plan: Worsening?gastritis?and?heartburn. Will?give?her?a?script?for?omeprazole?during?the?da y?and?she?can?try?famotidine?at?bedtime (4) Persistent headaches: Code(s): R51.9 - Headache, unspecified Plan: Referred?to?neurology?at?patient?request (5) Yeast infection: Code(s): B37.9 - Candidiasis, unspecified Plan: Recurrent?yeast?infections. Referred?to?Dermatology (6) Erosion of nasal septum: Code(s): J34.2 - Deviated nasal septum Plan: Patient?had?seen?ENT?but?wants?a?different?specialist-referred Orders: Referrals Podiatry Referral E11.9 - Type 2 diabetes mellitus without complications Medical Weight Management Referral E11.9 - Type 2 diabetes mellitus without complications, E66.9 - Obesity, unspecified Neurology Referral G43.909 - Migraine, unspecified, not intractable, without status migrainosus Dermatology Referral L08.9 - Local infection of the skin and subcutaneous tissue, unspecified Medications: New omeprazole 20 mg PO DAILY 30 days 30 caps 3RF Changed From dulaglutide (Trulicity) 0.75 mg subcut QWEEK To dulaglutide (Trulicity) 0.75 mg (0.25 mL) subcut QWEEK 28 days 1 mL 4RF From Lantus Solostar U-100 Insulin (insulin glargine) WAQAS. No substitutions. 26 units (0.26 mL) subcut DAILY 30 days 9 mL 3RF NS To Lantus Solostar U-100 Insulin (insulin glargine) WAQAS. No substitutions. 28 units (0.28 mL) subcut DAILY 30 days 9 mL 3RF NS Refilled miscellaneous medical supply diabetic shoes as directed; 1 ea 1RF E11.40 - Type 2 diabetes mellitus with diabetic neuropathy, unspecified, E11.65 - Type 2 diabetes mellitus with hyperglycemia Discontinued semaglutide Discontinued Reason: Doctor's Order 2 mg (0.75 mL) subcut QWEEK 28 days 3 mL 3RF Coding Level of Care Code Est Pt Level 4 (94299) Diagnoses Diabetes E11.9 Obesity (BMI 30.0-34.9) E66.9 Gastritis K29.70 Persistent headaches R51.9 Yeast infection B37.9 Erosion of nasal septum J34.2
== END 2023-11-29 12:31 | disposition home or self-care (01) ==
PROVIDERS: PCP Family Medicine; Visit Provider Family Medicine
DX: E11.9 Type 2 diabetes mellitus without complications (principal); Z68.33 Body mass index [BMI] 33.0-33.9, adult; E66.9 Obesity, unspecified; K29.70 Gastritis, unspecified, without bleeding; R51.9 Headache, unspecified; B37.9 Candidiasis, unspecified; J34.2 Deviated nasal septum
CPT/HCPCS: 99214

== ENCOUNTER 2024-01-02 09:04 | Outpatient (AMB) | payer OTHER, SELFPAY ==
[2024-01-02 09:06] VITALS: BP 118/68; PULSE 105; O2SAT 98; BMI 34.1
--- NOTE | 2024-01-02 09:06 | MHC.PC.OV ---
Vital Signs 01/02/24 09:06 Height 5 ft 3 in Weight 192 lb 4 oz BMI 34.1 BP 118/68 Blood Pressure Location Lt brachial Position Sitting Pulse 105 H Pulse Source Pulse Oximeter Pulse Oximetry (%) 98 Oxygen Delivery Method Room Air Intake Visit Reasons: F/U diabetes, chronic conditions Intake Note: Patient is here for follow up on diabetes today. She would like to talk about dry mouth today, would like med for peptiva, and Wegovy.. Allergies Seasonal Allergies Allergy (Intermediate, Verified 01/02/24 09:13) Itchy Eyes Medication List - Last Reconciled 01/02/24 by Rashaun Caballero MD blood sugar diagnostic (FreeStyle Lite Strips) DX: E11.9, test blood sugar 3 times a day, 90 days blood-glucose meter (FreeStyle Lite Meter kit) DX: E11.9, test blood sugar 3 times a day, duration 999 days blood-glucose sensor (FreeStyle Miguelina 3 Sensor device) As directed, 28 days buspirone 30 mg PO BID calcium polycarbophil (FiberCon) 625 mg PO DAILY 30 days cariprazine (Vraylar) 3 mg PO DAILY cyanocobalamin (vitamin B-12) 1,000 mcg PO DAILY 90 days diclofenac sodium 1% (Arthritis Pain (diclofenac)) 2 grams topical QID PRN 3 days dulaglutide (Trulicity) 1.5 mg (0.5 mL) subcut QWEEK 28 days erenumab-aooe (Aimovig Autoinjector) mg subcut hwzrgbahjwg-iozwoyflk-inpupvgi 100-62.5-25 mcg (Trelegy Ellipta) 1 inh inhalation DAILY gabapentin 300 mg PO TID hydroxyzine HCl 50 mg PO BID ipratropium-albuterol 0.5 mg-3 mg(2.5 mg base)/3 mL 3 mL inhalation Q6-8H PRN ketoconazole 2% 1 appl topical 2XW 14 days Lactobac. rhamnosus GG-inulin 12 billion cell -200 mg ([employer]) 1 cap PO DAILY 30 days Lactobacillus acidophilus 10,000 mmu cells PO DAILY 30 days lancets (FreeStyle Lancets) As directed Lantus Solostar U-100 Insulin (insulin glargine) 28 units (0.28 mL) subcut DAILY 30 days NS lidocaine 5% 1 patch topical DAILY 30 days loratadine 10 mg PO DAILY miscellaneous medical supply As directed, 999 days miscellaneous medical supply 1 pair diabetic shoes, Daily As directed, 999 days miscellaneous medical supply diabetic shoes as directed; nortriptyline 25 mg PO BEDTIME omeprazole 20 mg PO DAILY 30 days pantoprazole 40 mg PO DAILY 30 days pen needle, diabetic (BD Ultra-Fine Mini Pen Needle) 1 ea miscellaneous TID-QID prazosin 5 mg PO BEDTIME [theraworx 1 appl topical BID PRN 30 days] topiramate 50 mg PO BID 1 month Tobacco use date assessed: 11/15/23 Dental Screening Dental Screen Date: 11/15/23 HPI F/U diabetes, chronic conditions HPI Details 58 y/o female presents to f/u diabetes, chronic conditions. Last A1c 11/15/23 8.6%. Pt notes she feels her diabetes is out of control. She notes she has not been to endocrinology yet and she states she feels her weight is going up. [facility] Medical History Insulin dependent diabetes mellitus LARIOS (nonalcoholic steatohepatitis) Surgical History History of bilateral carpal tunnel release History of knee surgery History of loop electrical excision procedure (LEEP) H/O repair of left rotator cuff History of sinus surgery History of facial surgery Family History Father Skin cancer Mental health disorder Substance abuse Mother Ovarian cancer Diabetes Mental health disorder Maternal Aunt Breast cancer Maternal Uncle Lung cancer Family/Other Mental health disorder Family/Other Substance abuse Social History Household Members: Family Both parents involved: No Caregiver staying overnight: No Housing: House (mobile home) Housing Other:: mobile home Do you presently have visiting nurse or other home services: No 75 years or older and lives alone: No Alcohol intake: current Alcohol intake frequency: a few times a month Patient Tobacco Use Status: Never used Tobacco e-Cigarette/Vaping Use: Never Used Second Hand Smoke Exposure: No Substance Use Type: Crack/Cocaine service: No Current occupational status: disabled Current occupational exposures/hazards: No Cognitive needs: No Hearing needs: No Vision needs: Yes Questionnaire Thrive Questionnaire Date Thrive assessed: 05/01/23 MARLEE-7 AMB Questionnaire MARLEE-7 Date MARLEE - 7 assessed: 05/01/23 Source: Developed by Drs. Bradley King, Lian Nash, Boyd Hess and colleagues, with an educational gabriela from [employer]. Review of Systems Const Denies chills, Denies fatigue, Denies fever(s), Denies headache(s) and Denies weakness ENT Denies dizziness and Denies headache(s) Card Denies dyspnea Resp Denies cough, Denies dyspnea, Denies wheezing and Denies other (shortness of breath) Musc Denies numbness and Denies tingling Neuro Denies dizziness, Denies headache(s), Denies numbness, Denies tingling and Denies weakness Psych Denies anxiety and Denies depression Endo Denies fatigue Aller/Immun Denies wheezing Physical exam (Primary Care) Vital Signs: Last Vital Signs Pulse 105 H 01/02/24 09:06 BP 118/68 01/02/24 09:06 Pulse Ox 98 01/02/24 09:06 Oxygen Delivery Method Room Air 01/02/24 09:06 BMI result Body Mass Index 34.1 Tobacco/Smoking Status: Tobacco use Status Tobacco use date assessed 11/15/23 01/02/24 09:09 Patient Tobacco Use Status Never used Tobacco 01/02/24 09:09 e-Cigarette/Vaping Use Never Used 01/02/24 09:09 Thrive Assessment: Date of Thrive Assessment Date Thrive assessed 05/01/23 01/02/24 09:09 Const General: well developed; No acute distress Nutritional Appearance: well nourished Orientation/consciousness: patient oriented x3 HENMT Head: Yes normocephalic and Yes atraumatic Eyes General: appearance normal, both eyes and all related structures Pupils: Equal, round and reactive pupils present EOM: EOMs intact bilaterally Resp Effort & Inspection: normal respiratory effort Auscultation: clear to auscultation bilaterally Cardio Rate: regular rate Rhythm: regular rhythm Heart sounds: S1 normal heart sound present, S2 normal heart sound present, no gallops, no murmurs and no rubs Neuro General: patient oriented x3 and gait normal Cranial nerves: Yes Equal, round and reactive pupils present Psych Affect: normal affect Assessment and Plan Assessment & Plan (1) Diabetes: Code(s): E11.9 - Type 2 diabetes mellitus without complications Plan: 58-year-old?female?presents?for?follow-up?diabetes. Still?poorly?controlled. She?has?been?able?to?get?Trulicity?now?and?continues?Lantus?28?units?daily Increasing?Trulicity?to?3.0?mg?per?week?and?increasing?Lantus?to?30?units?daily She?had?been?referred?to?[facility]?endocrinology?but?has?not?heard?from?them?yet.??She?now?has?the?referral?information?and?will?call?them. (2) Diabetic neuropathy: Code(s): E11.40 - Type 2 diabetes mellitus with diabetic neuropathy, unspecified Plan: Will?send?script?for?Rollator?walker (3) Dry mouth: Code(s): R68.2 - Dry mouth, unspecified Plan: Likely?primarily?due?to?poorly?controlled?diabetes. This?should?improve?with?improved?blood?sugar?control She?should?also?discuss?her?psych?med?medications?with?her?psych?med?provider?as?these?can?also?affect?dry?mouth Medications: New walker (Ultra-Light Rollator misc) 3 wheel, collapsible, with?seat?and?brakes. Daily?As directed, 999 days 1 ea 0RF E11.40 - Type 2 diabetes mellitus with diabetic neuropathy, unspecified Changed From dulaglutide (Trulicity) 1.5 mg (0.5 mL) subcut QWEEK 28 days 2 mL 4RF To dulaglutide 3 mg (0.5 mL) subcut QWEEK 28 days 2 mL 4RF From Lantus Solostar U-100 Insulin (insulin glargine) WAQAS. No substitutions. 28 units (0.28 mL) subcut DAILY 30 days 9 mL 3RF NS To Lantus Solostar U-100 Insulin (insulin glargine) WAQAS. No substitutions. 30 units (0.3 mL) subcut DAILY 30 days 9 mL 3RF NS Coding Level of Care Code Est Pt Level 3 (32414) Diagnoses Diabetes E11.9 Diabetic neuropathy E11.40 Dry mouth R68.2
== END 2024-01-02 09:34 | disposition home or self-care (01) ==
PROVIDERS: PCP Family Medicine; Visit Provider Family Medicine
DX: E11.40 Type 2 diabetes mellitus with diabetic neuropathy, unspecified (principal); R68.2 Dry mouth, unspecified
CPT/HCPCS: 99214

== ENCOUNTER 2024-04-14 14:05 | Outpatient (AMB) | payer OTHER, SELFPAY ==
--- NOTE | 2024-04-14 14:18 | A.OFFPC_ITS ---
Vital Signs 04/14/24 14:22 Height 5 ft 3 in Weight 178 lb 6 oz BMI 31.6 BP 102/60 Blood Pressure Location Rt brachial Position Sitting Respiration 12 Pulse 101 H Pulse Source Pulse Oximeter Temp 98.0 F Temp Source Oral Pulse Oximetry (%) 96 Oxygen Delivery Method Room Air Intake Visit Reasons: Closed Throat Intake Note: dm f/u and trouble swallowing Allergies Seasonal Allergies Allergy (Intermediate, Verified 04/14/24 14:19) Itchy Eyes Medication List - Last Reconciled 04/14/24 by Rashaun Caballero MD blood sugar diagnostic (FreeStyle Lite Strips) DX: E11.9, test blood sugar 3 times a day, 90 days blood-glucose meter (FreeStyle Lite Meter kit) DX: E11.9, test blood sugar 3 times a day, duration 999 days blood-glucose sensor (FreeStyle Miguelina 3 Sensor device) As directed, 28 days buspirone 30 mg PO BID calcium polycarbophil (FiberCon) 625 mg PO DAILY 30 days cariprazine (Vraylar) 3 mg PO DAILY cyanocobalamin (vitamin B-12) 1,000 mcg PO DAILY 90 days diclofenac sodium 1% (Arthritis Pain (diclofenac)) 2 grams topical QID PRN 3 days dulaglutide 3 mg (0.5 mL) subcut QWEEK 28 days erenumab-aooe (Aimovig Autoinjector) mg subcut hffunhqcbza-dnvvapohe-qjcwvhos 100-62.5-25 mcg (Trelegy Ellipta) 1 inh inhalation DAILY gabapentin 300 mg PO TID hydroxyzine HCl 50 mg PO BID ipratropium-albuterol 0.5 mg-3 mg(2.5 mg base)/3 mL 3 mL inhalation Q6-8H PRN ketoconazole 2% 1 appl topical 2XW 14 days Lactobac. rhamnosus GG-inulin 12 billion cell -200 mg ([employer]) 1 cap PO DAILY 30 days Lactobacillus acidophilus 10,000 mmu cells PO DAILY 30 days lancets (FreeStyle Lancets) As directed Lantus Solostar U-100 Insulin (insulin glargine) 30 units (0.3 mL) subcut DAILY 30 days NS lidocaine 5% 1 patch topical DAILY 30 days loratadine 10 mg PO DAILY miscellaneous medical supply As directed, 999 days miscellaneous medical supply 1 pair diabetic shoes, Daily As directed, 999 days miscellaneous medical supply diabetic shoes as directed; nortriptyline 25 mg PO BEDTIME omeprazole 20 mg PO DAILY 30 days pantoprazole 40 mg PO DAILY 30 days pen needle, diabetic (BD Ultra-Fine Mini Pen Needle) 1 ea miscellaneous TID-QID prazosin 5 mg PO BEDTIME [theraworx 1 appl topical BID PRN 30 days] topiramate 50 mg PO BID 1 month walker (Ultra-Light Rollator misc) 3 wheel, collapsible, with?seat?and?brakes. Daily?As directed, 999 days Tobacco use date assessed: 11/15/23 Dental Screening Dental Screen Date: 11/15/23 HPI Closed Throat HPI Details Scheduled?for?follow-up?diabetes. ?Also?was?having?some?issues?wit h?swallowing?and?already?has?an?appointment?with?Gastroenterology. Once?other?referrals A1c?today?13.1% She notes she likes to drink fruit drinks. She continues taking her meds as prescribed. Has been keeping herself more active. Notes numbness/tingling of her feet. Requesting referral to urology as she had been having trouble with implants for urinary incontinence. Has complaints of nasal polyps. Ongoing complaints of dysphagia and has been following up with GI for this. HPI Comments History of Present Illness Details Documentation assistance for Rashaun Caballero MD, was provided by Steve Quezada,? Store Assistant on 04/14/2024 at 2:48 PM EST. I, Dr. Caballero, have read, observed, and verified documentation. [facility] Medical History Insulin dependent diabetes mellitus LARIOS (nonalcoholic steatohepatitis) Surgical History History of bilateral carpal tunnel release History of knee surgery History of loop electrical excision procedure (LEEP) H/O repair of left rotator cuff History of sinus surgery History of facial surgery Family History Father Skin cancer Mental health disorder Substance abuse Mother Ovarian cancer Diabetes Mental health disorder Maternal Aunt Breast cancer Maternal Uncle Lung cancer Family/Other Mental health disorder Family/Other Substance abuse Social History Household Members: Family Both parents involved: No Caregiver staying overnight: No Housing: House (mobile home) Housing Other:: mobile home Do you presently have visiting nurse or other home services: No 75 years or older and lives alone: No Alcohol intake: current Alcohol intake frequency: a few times a month Patient Tobacco Use Status: Never used Tobacco e-Cigarette/Vaping Use: Never Used Second Hand Smoke Exposure: No Substance Use Type: Crack/Cocaine service: No Current occupational status: disabled Current occupational exposures/hazards: No Cognitive needs: No Hearing needs: No Vision needs: Yes Questionnaire Thrive Questionnaire Date Thrive assessed: 05/01/23 MARLEE-7 AMB Questionnaire MARLEE-7 Date MARLEE - 7 assessed: 05/01/23 Source: Developed by Drs. Bradley King, Lian Nash, Boyd Hess and colleagues, with an educational gabriela from [employer]. Physical exam (Primary Care) Vital Signs: Last Vital Signs Temp 98.0 F 04/14/24 14:22 Pulse 101 H 04/14/24 14:22 Resp 12 04/14/24 14:22 BP 102/60 04/14/24 14:22 Pulse Ox 96 04/14/24 14:22 Oxygen Delivery Method Room Air 04/14/24 14:22 BMI result Body Mass Index 31.6 Tobacco/Smoking Status: Tobacco use Status Tobacco use date assessed 11/15/23 04/14/24 14:25 Patient Tobacco Use Status Never used Tobacco 04/14/24 14:25 e-Cigarette/Vaping Use Never Used 04/14/24 14:25 Thrive Assessment: Date of Thrive Assessment Date Thrive assessed 05/01/23 04/14/24 14:25 Assessment and Plan Assessment & Plan (1) Poorly controlled type 2 diabetes mellitus: Code(s): E11.65 - Type 2 diabetes mellitus with hyperglycemia Plan: Significantly?worsened?diabetes. Patient?says?that?she?is?taking?her?medications?as?prescribed?but?diet?has?bailey ed?significantly. Financial?barriers?to?maintaining?a?diabetic?diet. Will?ask?the?nurse?navigator?to look?for?eligible?services?and?help?patient?with?diet. Will?refer?to?endocrinology. Increasing?Lantus?from?30?units?to?36?units. Represcribing testing?strips?as?patient?says?she?is?out?of?these?and?I?have?reminded?her?to?ca ll?when?she?needs?more. She?also?has?a?Miguelina?monitoring?system.??She?says?that?her?phon e?service?has?off?and?that?this?is?why?she?has?not?been?monitoring?her?blood?sug ars. ?She?should?be?able?to?read?this?by?a?Bluetooth?and?may?need?help?with?this. She?can?discuss?with?the?nurse?navigator. She?also?notes?that?her?blood?sugars?have?been unreadable so?I?asked?her?to?contact?us?if?blood?sugars are?high?or?above readable range. She?can?ask?for?a?message?to?get?to?my?nurse?if?needed. Work?on?diet Patient?requests?change?from?Trulicity?to?Wegovy?which?we?will?try?today. She?will?continue?taking?Trulicity?if?she?is?unable?to?get?Wegovy (2) Urinary incontinence: Code(s): R32 - Unspecified urinary incontinence Plan: Referred?to?urology (3) Nasal polyps: Code(s): J33.9 - Nasal polyp, unspecified Plan: Referred?to?ENT (4) Dysphagia: Code(s): R13.10 - Dysphagia, unspecified Plan: History?of?esophageal?strictures?and?she?has?an?appointment?with?GI. Follow-up?with?GI?as?recommended Orders: Referrals Endocrinology Referral E11.65 - Type 2 diabetes mellitus with hyperglycemia Nurse Navigator Referral E11.65 - Type 2 diabetes mellitus with hyperglycemia, Z59.819 - Housing instability, housed unspecified, Z59.9 - Problem related to housing and economic circumstances, unspecified Ear/Nose/Throat Referral J33.9 - Nasal polyp, unspecified Urology Referral R32 - Unspecified urinary incontinence Medications: New semaglutide (weight loss) (Sofia) administer weeks 9 through 12 of therapy 1 mg (0.5 mL) subcut QWEEK 28 days 2 mL 3RF Changed From Lantus Solostar U-100 Insulin (insulin glargine) WAQAS. No substitutions. 30 units (0.3 mL) subcut DAILY 30 days 9 mL 3RF NS To Lantus Solostar U-100 Insulin (insulin glargine) WAQAS. No substitutions. 36 units (0.36 mL) subcut DAILY 30 days 15 mL 3RF NS From pen needle, diabetic (BD Ultra-Fine Mini Pen Needle) 1 ea miscellaneous TID-QID 200 ea 0RF E11.65 - Type 2 diabetes mellitus with hyperglycemia To pen needle, diabetic (BD Ultra-Fine Mini Pen Needle) 1 ea miscellaneous TID- QID 90 days 200 ea 3RF E11.65 - Type 2 diabetes mellitus with hyperglycemia Refilled blood sugar diagnostic (FreeStyle Lite Strips) DX: E11.9, test blood sugar 3 times a day, 90 days 300 ea 4RF E11.65 - Type 2 diabetes mellitus with hyperglycemia, E11.9 - Type 2 diabetes mellitus without complications Coding Level of Care Code Est Pt Level 4 (25864) Diagnoses Poorly controlled type 2 diabetes mellitus E11.65 Urinary incontinence R32 Nasal polyps J33.9 Dysphagia R13.10
[2024-04-14 14:22] VITALS: BP 102/60; PULSE 101; RESP 12; TEMP 36.7; O2SAT 96; BMI 31.6
== END 2024-04-14 14:56 | disposition home or self-care (01) ==
PROVIDERS: PCP Family Medicine; Visit Provider Family Medicine
DX: E11.65 Type 2 diabetes mellitus with hyperglycemia (principal); R32 Unspecified urinary incontinence; J33.9 Nasal polyp, unspecified; R13.10 Dysphagia, unspecified; E11.9 Type 2 diabetes mellitus without complications

== ENCOUNTER → 2024-04-14 14:05 | Outpatient (BNVA) | payer OTHER, SELFPAY | PROVIDERS: PCP Family Medicine; Visit Provider Family Medicine | DX: E11.65 Type 2 diabetes mellitus with hyperglycemia (principal); R32 Unspecified urinary incontinence; R13.10 Dysphagia, unspecified; J33.9 Nasal polyp, unspecified; Z79.4 Long term (current) use of insulin | CPT/HCPCS: 83036; 99212 ==

== ENCOUNTER 2024-05-14 14:41 | Outpatient (AMB) | payer OTHER, SELFPAY ==
--- NOTE | 2024-05-14 12:55 | A.OFFVIS_ITS ---
Intake Visit Reasons: urinary incontinence Intake Note: Patient is present for urinary incontinence Urology Medication:none Antibiotic Allergy:none Blood Thinner:none today's PVR: 0ml's Watch Leader Required: No Allergies Seasonal Allergies Allergy (Intermediate, Verified 05/14/24 14:51) Itchy Eyes HPI Comments Details: Linda is a 58 year old female who is here for evaluation with complaints of urinary incontinence. She states she had a bladder pacemaker implanted about 15 years ago. She states it worked perfectly but then the battery life and she needed a new pacemaker battery that was placed 2017. She states that her symptoms got worse after the new battery. In further questioning the patient stated she fell about 4-5 years ago some months after the replacement pacemaker battery. She states she broke her L1 bone and needed surgery to cement it . I have discussed the after a fall there can be migration of the lead which may affect how the interstim will work. Plan Xray Lumbar/Sacral spine, schedule evaluation with [facility] Rep. [employer] card - Implant date 07/05/2018, Serial #[id number], Model #[id number] PFSH Medical History Insulin dependent diabetes mellitus LARIOS (nonalcoholic steatohepatitis) Surgical History History of bilateral carpal tunnel release History of knee surgery History of loop electrical excision procedure (LEEP) H/O repair of left rotator cuff History of sinus surgery History of facial surgery Family History Father Skin cancer Mental health disorder Substance abuse Mother Ovarian cancer Diabetes Mental health disorder Maternal Aunt Breast cancer Maternal Uncle Lung cancer Family/Other Mental health disorder Family/Other Substance abuse Social History Household Members: Family Both parents involved: No Caregiver staying overnight: No Housing: House (mobile home) Housing Other:: mobile home Do you presently have visiting nurse or other home services: No 75 years or older and lives alone: No Alcohol intake: current Alcohol intake frequency: a few times a month Patient Tobacco Use Status: Never used Tobacco e-Cigarette/Vaping Use: Never Used Second Hand Smoke Exposure: No Substance Use Type: Crack/Cocaine service: No Current occupational status: disabled Current occupational exposures/hazards: No Cognitive needs: No Hearing needs: No Vision needs: Yes Review of Systems Const All systems reviewed & are unremarkable except as noted in HPI and below Reports no additional complaints Eyes Reports no additional complaints ENT Reports no additional complaints Card Reports no additional complaints Resp Reports no additional complaints GI Reports no additional complaints Reports as per HPI Musc Reports no additional complaints Skin/Breast Reports system reviewed and no additional complaints, except as documented Neuro Reports no additional complaints Psych Reports no additional complaints Endo Reports no additional complaints Jayme/Lymph Reports no additional complaints Aller/Immun Reports no additional complaints Physical Exam Const General: cooperative, healthy appearing and no acute distress Orientation/consciousness: patient oriented x3 HEENT Head: Yes normal to inspection, Yes normocephalic and Yes atraumatic Eyes Conjunctivae: conjunctivae normal Neck Neck: Yes normal visual inspection and Yes trachea midline Chest Chest palpation & inspection: normal inspection of the chest Resp Effort & Inspection: normal respiratory effort Cardio Rate: regular rate GI Inspection: Yes normal to inspection Neuro General: patient oriented x3 Psych Appearance: grossly normal Office Procedures Post Void Residual Post Residual Void Post Void Residual (PVR): 0 [id number] Void Residual by ultrasound Results AMB Urinalysis, Automated UA Leukoctes 0 Yaw/uL Last Edit by TJ Davies on 05/14/24 15:09 UA Nitrite Negative Last Edit by TJ Davies on 05/14/24 15:09 UA Urobilinogen 0.2 mg/dL Last Edit by TJ Davies on 05/14/24 15:0 9 UA Protein 0 mg/dL Last Edit by Sarah Galindo CCM on 05/14/24 15:09 UA pH 7.0 Last Edit by TJ Davies on 05/14/24 15:09 UA Blood 0 Alec/uL Last Edit by TJ Davies on 05/14/24 15:09 UA Specific [place] 1.010 Last Edit by TJ Davies on 05/14/24 15: 09 UA Ketone Negative Last Edit by TJ Davies on 05/14/24 15:09 UA Bilirubin 0 mg/dL Last Edit by TJ Davies on 05/14/24 15:09 UA Glucose 1000 mg/dL Last Edit by TJ Davies on 05/14/24 15:09 Results Reviewed Results Reviewed: Laboratory Last Values Urine pH (Auto) 7.0 05/14/24 15:09 Specific [place] (Auto) 1.010 05/14/24 15:09 Urine Protein (Auto) 0 mg/dL 05/14/24 15:09 Glucose (UA)(Auto) 1000 mg/dL 05/14/24 15:09 Urine Ketones (Auto) Negative 05/14/24 15:09 Urine Blood (Auto) 0 Alec/uL 05/14/24 15:09 Urine Nitrite (Auto) Negative 05/14/24 15:09 Urine Bilirubin (Auto) 0 mg/dL 05/14/24 15:09 Urine Urobilinogen (Auto) 0.2 mg/dL 05/14/24 15:09 Leukocyte Esterase (Auto) 0 Yaw/uL 05/14/24 15:09 Assessment & Plan Assessment & Plan (1) Urinary incontinence: Code(s): R32 - Unspecified urinary incontinence Category: Medical Plan Plan Xray Lumbar/Sacral spine, schedule evaluation with [employer] Rep. Orders: Orders XR sacrum coccyx min 2V Today R32 - Unspecified urinary incontinence XR lumbar spine 1V Today R32 - Unspecified urinary incontinence Patient Instructions: The patient had an opportunity to ask questions regarding treatment plan. The patient expressed understanding and agreement with the above treatment plan. The patient is aware they should contact our office by phone for worsening of their current condition or the appearance of new symptoms. Compliance is encouraged with any medications and followup testing that is ordered. It is a privilege to be allowed the opportunity to participate in the urologic care of your patient. If you have any questions or concerns regarding treatment for the above conditions please do not hesitate to contact me. The office telephone contact is [phone]. This note is constructed in part using voice recognition software. While every effort has been made to ensure accuracy dean of admissions errors may have been included. Yours sincerely, Lara Mccall MD Coding Level of Care Code New Pt Level 4 (59360) Diagnoses Urinary incontinence R32 CPT Codes Post Residual Void - PVR CPT Code: 67641-[id number] Void Residual by ultrasound ([id number])
== END 2024-05-14 15:38 | disposition home or self-care (01) ==
LOC: HO.HUSH 14:42
PROVIDERS: PCP Family Medicine; Visit Provider Urology
DX: R32 Unspecified urinary incontinence (principal); Z01.818 Encounter for other preprocedural examination
CPT/HCPCS: 99204

== ENCOUNTER → 2024-05-14 14:41 | Outpatient (BNVA) | payer OTHER, SELFPAY | PROVIDERS: PCP Family Medicine; Visit Provider Urology | DX: R32 Unspecified urinary incontinence (principal) | CPT/HCPCS: 51798; 81003; 99202 ==

== ENCOUNTER → 2024-08-11 09:42 | Outpatient (BNVA) | payer OTHER, SELFPAY | PROVIDERS: PCP Family Medicine; Visit Provider Physician Assistant | DX: E11.65 Type 2 diabetes mellitus with hyperglycemia (principal); E11.40 Type 2 diabetes mellitus with diabetic neuropathy, unspecified; Z79.4 Long term (current) use of insulin | CPT/HCPCS: 82947; 83036; 99202 ==

== ENCOUNTER 2024-09-05 07:39 | Outpatient (AMB) | payer OTHER, SELFPAY ==
[2024-09-05 07:41] VITALS: BP 124/68; PULSE 98; O2SAT 97; BMI 32.0
--- NOTE | 2024-09-05 07:41 | A.OFFVIS_ITS ---
Vital Signs 09/05/24 07:41 Height 5 ft 3 in Weight 180 lb 12.465 oz BMI 32.0 BP 124/68 Blood Pressure Location Lt brachial Position Sitting Pulse 98 Pulse Source Pulse Oximeter Pulse Oximetry (%) 97 Oxygen Delivery Method Room Air Intake Visit Reasons: T2DM Intake Note: Patient present today for Type 2 Diabetes Mellitus Last Diabetic eye exam: 10/2023 Last Podiatry Visit: Doesn't have one Random Glucose: 114 mg/dl HgA1C: >14.0% 08/11/24 Housing Liaison Required: No Accompanied by: Self / Same As Patient Allergies Seasonal Allergies Allergy (Intermediate, Verified 09/05/24 07:46) Itchy Eyes Medication List - Last Reconciled 09/05/24 by Bree Asher PA-C blood sugar diagnostic (FreeStyle Lite Strips) DX: E11.9, test blood sugar 3 times a day, 90 days blood-glucose meter (FreeStyle Lite Meter kit) DX: E11.9, test blood sugar 3 times a day, duration 999 days blood-glucose meter,continuous (FreeStyle Miguelina 3 [place]) Use daily As directed to monitor blood glucose blood-glucose sensor (FreeStyle Miguelina 3 Plus Sensor device) Use daily As directed to monitor glucose cyanocobalamin (vitamin B-12) 1,000 mcg PO DAILY 90 days diclofenac sodium 1% (Arthritis Pain (diclofenac)) 2 grams topical QID PRN 3 days erenumab-aooe (Aimovig Autoinjector) mg subcut uehamqiaxbv-[id number]-wbbtfcdp 100-62.5-25 mcg (Trelegy Ellipta) 1 inh inhalation DAILY glipizide ER 5 mg PO DAILY glucose (Dex4 Glucose) 16 grams (4 x 4 gram) PO Q15M PRN insulin lispro (Humalog KwikPen (U-100) Insulin) 5 units (0.05 mL) subcut TID ipratropium-albuterol 0.5 mg-3 mg(2.5 mg base)/3 mL 3 mL inhalation Q6-8H PRN ketoconazole 2% 1 appl topical 2XW 14 days lancets (FreeStyle Lancets) As directed Lantus Solostar U-100 Insulin (insulin glargine) 40 units (0.4 mL) subcut DAILY 30 days NS lidocaine 5% 1 patch topical DAILY 30 days loratadine 10 mg PO DAILY 90 days miscellaneous medical supply As directed, 999 days miscellaneous medical supply 1 pair diabetic shoes, Daily As directed, 999 days miscellaneous medical supply diabetic shoes as directed; omeprazole 20 mg PO DAILY 30 days pantoprazole 40 mg PO DAILY 30 days pen needle, diabetic (BD Ultra-Fine Mini Pen Needle) 1 ea miscellaneous TID-QID 90 days [theraworx 1 appl topical BID PRN 30 days] topiramate 50 mg PO BID 1 month walker (Ultra-Light Rollator misc) 3 wheel, collapsible, with?seat?and?brakes. Daily?As directed, 999 days HPI HPI T2DM: Details: Patient is a 58-year-old female with a significant past medical history of anxiety, depression, housing/financial insecurity, diabetes, B12 deficiency, obesity, IBS, migraines presenting today for a follow up regarding dm. Endo: She was seen recently and had her Lantus increased, started on Humalog, started on glipizide and Mounjaro as well. She was diagnosed with diabetes around the age of 52. Her most recent A1c today is greater than 14. She tells me today that she did not realize she was supposed to be on Lantus until today. She has been using 40 units of Humalog in the morning once a day. She is tolerating the glipizide and the Mounjaro. She has no nausea or vomiting with this. She does sometimes get low blood sugars in the morning after administering 40 units of Humalog. She treats it with juice. She is supposed to be on Trulicity but the higher doses make her feel a little sick and states that they did discuss switching her to Wegovy. She states her insurance denied the Wegovy and upon further review of her previous medications she states that she did not tolerate the Ozempic. She has tried metformin in the past but it caused GI distress. CGM- GMI 8.4%, very hyperglycemic 30%, hypergylcemic 33%, in range 36%, hypogylcemic 1% States that she has a family history of diabetes but her mother she thinks it is a type 2 in her maternal grandmother was a type 1 diabetic. She was supposed to get labs done but states that she forgot. CV: Blood pressure today in the office is 124/68. Has not had any watery today. She is not on a statin. Last LDL was unknown. States that she has not had labs in quite some time. Psych: Currently struggling with anxiety, depression, bipolar disorder. States that she is on Rexulti and Topamax it does seem to be a little helpful for her and she is following closely with Behavioral Health. She states that this is her biggest barrier to taking care of herself. When she gets depressed she is not always compliant with her regimens or diet. [facility] Medical History Insulin dependent diabetes mellitus LARIOS (nonalcoholic steatohepatitis) Surgical History History of bilateral carpal tunnel release History of knee surgery History of loop electrical excision procedure (LEEP) H/O repair of left rotator cuff History of sinus surgery History of facial surgery Family History Father Skin cancer Mental health disorder Substance abuse Mother Ovarian cancer Diabetes Mental health disorder Maternal Aunt Breast cancer Maternal Uncle Lung cancer Family/Other Mental health disorder Family/Other Substance abuse Social History Household Members: Family Both parents involved: No Caregiver staying overnight: No Housing: House (mobile home) Housing Other:: mobile home Do you presently have visiting nurse or other home services: No 75 years or older and lives alone: No Alcohol intake: current Alcohol intake frequency: a few times a month Patient Tobacco Use Status: Never used Tobacco e-Cigarette/Vaping Use: Never Used Second Hand Smoke Exposure: No Substance Use Type: Crack/Cocaine service: No Current occupational status: disabled Current occupational exposures/hazards: No Cognitive needs: No Hearing needs: No Vision needs: Yes Physical Exam Vital Signs: Last Vital Signs Pulse 98 09/05/24 07:41 BP 124/68 09/05/24 07:41 Pulse Ox 97 09/05/24 07:41 Oxygen Delivery Method Room Air 09/05/24 07:41 BMI result Body Mass Index 32.0 Const Orientation/consciousness: patient oriented x3 HEENT Ears: hearing grossly normal bilaterally Neck Thyroid: Thyroid normal Lymphatic: no lymphadenopathy noted Resp Auscultation: clear to auscultation bilaterally Cardio Rate: regular rate Rhythm: regular rhythm Heart sounds: S1 normal heart sound present and S2 normal heart sound present Skin General skin exam: no rashes or lesions noted Neuro General: patient oriented x3, gait normal and no focal motor deficits Results Reviewed Results Reviewed: Laboratory Last Values Glucose (Clinic) 114 mg/dL (60-115) 09/05/24 07:49 Assessment & Plan Assessment & Plan (1) Uncontrolled type 2 diabetes mellitus with hyperglycemia, with long-term current use of insulin: Code(s): E11.65 - Type 2 diabetes mellitus with hyperglycemia; Z79.4 - nursing home (current) use of insulin Category: Medical Plan: We discussed the importance compliance and the importance of knowing the medications that she is taking. She does have a nurse and a patient advocate that helps her. She says that she does not have any issues with this just did not realize. I have advised her that if she has any questions at all regarding her regimen she is to call us and even the pharmacy. I will increase Mounjaro she is tolerating this well. She will continue the glipizide. She will restart the Lantus 40 units. We discussed that she is only to take 5 units of the Humalog with breakfast, lunch and supper. We discussed that if she does not eat she is not to take the Humalog at all. We will do a short term follow up. Advised that she needs to go get blood work done. Reviewed signs and symptoms of hypoglycemia that would require emergent medical treatment. Did discuss this again at length given the in proper use of the insulin. We discussed that this can be life-threatening. She has support at home and has no concerns with this. Patient understands and agrees with the plan. Medications: New tirzepatide (Mounjaro) 5 mg (0.5 mL) subcut QWEEK 2 mL 4RF Refilled Lantus Solostar U-100 Insulin (insulin glargine) WAQAS. No substitutions. 40 units (0.4 mL) subcut DAILY 30 days 15 mL 3RF NS blood-glucose meter,continuous ([employer]Style Miguelina 3 [place]) Use daily As directed to monitor blood glucose 1 ea 0RF E11.65 - Type 2 diabetes mellitus with hyperglycemia, Z79.4 - intermediate project manager (current) use of insulin insulin lispro (Humalog KwikPen (U-100) Insulin) with breakfast, lunch, and supper 5 units (0.05 mL) subcut TID 15 mL 5RF Patient Instructions: increase lantus to 40 units start humalog 5 units wtih meals increase mounjaro 5 mg once a weeky contiinue glipizide 5 mg daily. Coding Level of Care Code Est Pt Level 4 (51284) Complex EM visit Add On G2211 Diagnoses Uncontrolled type 2 diabetes mellitus with hyperglycemia, with long-term current use of insulin E11.65; Z79.4
[2024-09-05 07:52] LABS: Glucose, Whole Blood 114 mg/dL (60-115)
== END 2024-09-05 08:20 | disposition home or self-care (01) ==
PROVIDERS: PCP Family Medicine; Visit Provider Physician Assistant
DX: E11.65 Type 2 diabetes mellitus with hyperglycemia (principal); Z79.4 Long term (current) use of insulin

== ENCOUNTER → 2024-09-05 07:39 | Outpatient (BNVA) | payer OTHER, SELFPAY | PROVIDERS: PCP Family Medicine; Visit Provider Physician Assistant | DX: E11.65 Type 2 diabetes mellitus with hyperglycemia (principal); Z79.4 Long term (current) use of insulin | CPT/HCPCS: 82947; 99212 ==

== ENCOUNTER 2024-09-25 08:05 | Outpatient (AMB) | payer OTHER, SELFPAY ==
--- NOTE | 2024-09-25 08:36 | A.OFFPC_ITS ---
Vital Signs 09/25/24 08:38 Height 5 ft 3 in Weight 180 lb 6 oz BMI 31.9 BP 94/60 Blood Pressure Location Lt brachial Position Sitting Respiration 12 Pulse 81 Pulse Source Pulse Oximeter Temp 97.7 F Temp Source Oral Pulse Oximetry (%) 98 Oxygen Delivery Method Room Air Intake Visit Reasons: Diabetes F/U Intake Note: pt is scheduled for dm follow up Hand Slitter Required: No Allergies Seasonal Allergies Allergy (Intermediate, Verified 09/25/24 08:36) Itchy Eyes Medication List - Last Reconciled 09/25/24 by Rashaun Caballero MD blood sugar diagnostic (FreeStyle Lite Strips) DX: E11.9, test blood sugar 3 times a day, 90 days blood-glucose meter (FreeStyle Lite Meter kit) DX: E11.9, test blood sugar 3 times a day, duration 999 days blood-glucose meter,continuous (FreeStyle Miguelina 3 [place]) Use daily As directed to monitor blood glucose blood-glucose sensor (FreeStyle Miguelina 3 Plus Sensor device) Use daily As directed to monitor glucose cyanocobalamin (vitamin B-12) 1,000 mcg PO DAILY 90 days diclofenac sodium 1% (Arthritis Pain (diclofenac)) 2 grams topical QID PRN 3 days erenumab-aooe (Aimovig Autoinjector) mg subcut xkefvfcafqk-jpmoeqyac-oevywzqc 100-62.5-25 mcg (Trelegy Ellipta) 1 inh inhalation DAILY glipizide ER 5 mg PO DAILY glucose (Dex4 Glucose) 16 grams (4 x 4 gram) PO Q15M PRN insulin lispro (Humalog KwikPen (U-100) Insulin) 5 units (0.05 mL) subcut TID ipratropium-albuterol 0.5 mg-3 mg(2.5 mg base)/3 mL 3 mL inhalation Q6-8H PRN ketoconazole 2% 1 appl topical 2XW 14 days lancets (FreeStyle Lancets) As directed Lantus Solostar U-100 Insulin (insulin glargine) 40 units (0.4 mL) subcut DAILY 30 days NS lidocaine 5% 1 patch topical DAILY 30 days loratadine 10 mg PO DAILY 90 days miscellaneous medical supply As directed, 999 days miscellaneous medical supply 1 pair diabetic shoes, Daily As directed, 999 days miscellaneous medical supply diabetic shoes as directed; omeprazole 20 mg PO DAILY 30 days pantoprazole 40 mg PO DAILY 30 days pen needle, diabetic (BD Ultra-Fine Mini Pen Needle) 1 ea miscellaneous TID-QID 90 days [theraworx 1 appl topical BID PRN 30 days] tirzepatide (Mounjaro) 5 mg (0.5 mL) subcut QWEEK topiramate 50 mg PO BID 1 month walker ([place]ra[place] [facility] [place], collapsible, with?seat?and?brakes. Daily?As directed, 999 days Tobacco use date assessed: 11/15/23 Dental Screening Dental Screen Date: 11/15/23 HPI Diabetes F/U HPI Details Patient?returns to?follow-up?diabetes. She?is?hoping?to?get?a?spinal?stimulator?but?currently?her?A1c?today?is?9.3%. She?is?taking?Lantus?40?units?daily,?glipizide?ER?5?mg?q.a.m., Humalog?5?units?t.i.d.?with?meals?in?Mounjaro?5?mg?weekly. Mounjaro?was?increased?last?month. She?also?is?requesting?referral?to?Plastic?surgery?for?panniculectomy. Also?needs?a?new?puppet engineer. Lastly,?she?is?having?severe/worsened?pain?in?h er?right?wrist?with?shooting?pains?into?her?hand?and?weakness/dropping?items?whe n?this?occurs. [facility] Medical History Insulin dependent diabetes mellitus LARIOS (nonalcoholic steatohepatitis) Surgical History History of bilateral carpal tunnel release History of knee surgery History of loop electrical excision procedure (LEEP) H/O repair of left rotator cuff History of sinus surgery History of facial surgery Family History Father Skin cancer Mental health disorder Substance abuse Mother Ovarian cancer Diabetes Mental health disorder Maternal Aunt Breast cancer Maternal Uncle Lung cancer Family/Other Mental health disorder Family/Other Substance abuse Social History Household Members: Family Both parents involved: No Caregiver staying overnight: No Housing: House (mobile home) Housing Other:: mobile home Do you presently have visiting nurse or other home services: No 75 years or older and lives alone: No Alcohol intake: current Alcohol intake frequency: a few times a month Patient Tobacco Use Status: Never used Tobacco e-Cigarette/Vaping Use: Never Used Second Hand Smoke Exposure: No Substance Use Type: Crack/Cocaine service: No Current occupational status: disabled Current occupational exposures/hazards: No Cognitive needs: No Hearing needs: No Vision needs: Yes Questionnaire Thrive Questionnaire Date Thrive assessed: 09/22/24 I am a: Patient What is your living situation today?: I have a place to live, but I am worried about losing it in the future Within the past 12 months, did the food you bought not last and you didn't have the money to get more?: Often true Within the past 12 months, did you worry whether your food would run out before you got money to buy more?: Often true Do you have trouble paying for medicines?: No Do you have trouble getting transportation to medical appointments?: No Do you have trouble paying your heating and electricity bill?: Yes Do you have trouble taking care of your child, family member or friend?: No Do you have trouble with day-to-day activities such as bathing, preparing meals, shopping, managing finances, etc.?: Yes Are you currently unemployed and looking for a job?: No Are you interested in more education?: Yes THRIVE Score: 4 AUDIT C Alcohol Use Questionnaire (AUDIT-C) 1. How often do you have a drink containing alcohol?: Never Total Score: 0 MARLEE-7 AMB Questionnaire MARLEE-7 Date MARLEE - 7 assessed: 05/01/23 Feeling nervous, anxious, or on edge: 3 = Nearly every day Not being able to stop or control worryin = Nearly every day Worrying too much about different things: 3 = Nearly every day Trouble relaxin = Nearly every day Being so restless that it is hard to sit still: 3 = Nearly every day Becoming easily annoyed or irritable: 3 = Nearly every day Feeling afraid as if something awful might happen: 3 = Nearly every day Total MARLEE-7 score (0-4 normal; 5-9 mild; 10-14 moderate; 15-21 severe): 21 Source: Developed by Drs. Bradley King, Lian Nash, Boyd Hess and colleagues, with an educational gabriela from [employer]. Review of Systems Const Denies chills, Denies fatigue, Denies fever(s), Denies headache(s) and Denies weakness ENT Denies dizziness and Denies headache(s) Card Denies chest pain, Denies lightheadedness, Denies dyspnea and Denies other (Palpitations) Resp Denies cough, Denies dyspnea, Denies wheezing and Denies other ( shortness of breath) Musc Denies numbness and Denies tingling Neuro Details: Shooting?pains?into?right?hand?and?weakness/dropping?items. Denies dizziness, Denies headache(s), Denies numbness, Denies tingling, Denies paresthesias and Denies weakness Psych Denies anxiety and Denies depression Endo Denies fatigue Aller/Immun Denies wheezing Physical exam (Primary Care) Vital Signs: Last Vital Signs Temp 97.7 F 09/25/24 08:38 Pulse 81 09/25/24 08:38 Resp 12 09/25/24 08:38 BP 94/60 09/25/24 08:38 Pulse Ox 98 09/25/24 08:38 Oxygen Delivery Method Room Air 09/25/24 08:38 BMI result Body Mass Index 31.9 Tobacco/Smoking Status: Tobacco use Status Tobacco use date assessed 11/15/23 09/25/24 08:41 Patient Tobacco Use Status Never used Tobacco 09/25/24 08:41 e-Cigarette/Vaping Use Never Used 09/25/24 08:41 Thrive Assessment: Date of Thrive Assessment Date Thrive assessed 09/22/24 09/25/24 08:41 Const General: no acute distress and well developed Nutritional Appearance: well nourished Orientation/consciousness: patient oriented x3 HENMT Head: Yes normocephalic and Yes atraumatic Eyes General: appearance normal, both eyes and all related structures Pupils: Equal, round and reactive pupils present EOM: EOMs intact bilaterally Resp Effort & Inspection: normal respiratory effort Auscultation: clear to auscultation bilaterally Cardio Rate: regular rate Rhythm: regular rhythm Heart sounds: S1 normal heart sound present, S2 normal heart sound present, no gallops, no murmurs and no rubs Neuro General: patient oriented x3 and gait normal Cranial nerves: Yes Equal, round and reactive pupils present Extrem Other: Pain?at?right?wrist?and?shooting?pains?with?flexion?of?wrist Psych Affect: normal affect Results AMB Hemoglobin A1c AMB Hemoglobin A1c 9.3 % Last Edit by TJ Donovan on 09/25/24 08:44 Results Reviewed Results Reviewed: Laboratory Last Values Hgb A1c (Clinic) 9.3 % (4.0-6.0) H 09/25/24 08:42 Coding Level of Care Code Tele Est Pt Level 5 (28016) Diagnoses Uncontrolled type 2 diabetes mellitus with hyperglycemia, with long-term current use of insulin E11.65; Z79.4 Abdominal pannus E65 Skin inflammation L08.9 Right hand pain M79.641 Weakness of right hand R29.898 Assessment & Plan Assessment & Plan (1) Uncontrolled type 2 diabetes mellitus with hyperglycemia, with long-term current use of insulin: Code(s): E11.65 - Type 2 diabetes mellitus with hyperglycemia; Z79.4 - [facility] (current) use of insulin Category: Medical Plan: Ongoing,?uncontrolled?diabetes. Will?have?her?increase?Lantus?to?44?units?daily Increase?glipizide?ER?from?5?mg?daily?to?10?mg?daily Continue Humalog?t.i.d.?with?meals?as?prescribed?and?hold?if?skipping?meals Continue?Mounjaro?5?mg?weekly?which?was?just?increased (2) Abdominal pannus: Code(s): E65 - Localized adiposity Category: Medical Plan: Referred?to?Plastic?surgery?at?patient?request? due?to?skin?inflammation?at?abdominal?pannus (3) Skin inflammation: Code(s): L08.9 - Local infection of the skin and subcutaneous tissue, unspecified Category: Medical Plan: As?above (4) Right hand pain: Code(s): M79.641 - Pain in right hand Category: Medical Plan: Right?hand?pain?and?weakness?with?electric?shock- like?sensation?and?weakness/dropping?items. Referred?to?hand?surgeon (5) Weakness of right hand: Code(s): R29.898 - Other symptoms and signs involving the musculoskeletal system Category: Medical Plan: As?above Orders: Orders AMB Hemoglobin A1c Today E11.65 - Type 2 diabetes mellitus with hyperglycemia, Z79.4 - intermission coordinator (current) use of insulin Referrals Podiatry Referral E11.65 - Type 2 diabetes mellitus with hyperglycemia, Z79.4 - [facility] (current) use of insulin Hand Surgery Referral M79.641 - Pain in right hand, R29.898 - Other symptoms and signs involving the musculoskeletal system Plastic Surgery Referral B37.9 - Candidiasis, unspecified, E65 - Localized adiposity, L08.9 - Local infection of the skin and subcutaneous tissue, unspecified Medications: Changed From glipizide ER 5 mg PO DAILY 90 tabs 0RF E11.65 - Type 2 diabetes mellitus with hyperglycemia, Z79.4 - [facility] (current) use of insulin To glipizide ER 10 mg PO DAILY 10 tabs 3RF 10 days E11.65 - Type 2 diabetes mellitus with hyperglycemia, Z79.4 - intermission coordinator (current) use of insulin From Lantus Solostar U-100 Insulin (insulin glargine) WAQAS. No substitutions. 40 units (0.4 mL) subcut DAILY 30 days 15 mL 3RF NS E11.65 - Type 2 diabetes mellitus with hyperglycemia, Z79.4 - [facility] (current) use of insulin To Lantus Solostar U-100 Insulin (insulin glargine) WAQAS. No substitutions. 44 units (0.44 mL) subcut DAILY 15 mL 3RF 30 days NS E11.65 - Type 2 diabetes mellitus with hyperglycemia, Z79.4 - intermission coordinator (current) use of insulin
[2024-09-25 08:38] VITALS: BP 94/60; PULSE 81; RESP 12; TEMP 36.5; O2SAT 98; BMI 31.9
== END 2024-09-25 09:14 | disposition home or self-care (01) ==
LOC: HO.HMCFM 08:05
PROVIDERS: PCP Family Medicine; Visit Provider Family Medicine
DX: E11.65 Type 2 diabetes mellitus with hyperglycemia (principal); Z79.4 Long term (current) use of insulin; E65 Localized adiposity; L08.9 Local infection of the skin and subcutaneous tissue, unspecified; M79.641 Pain in right hand; R29.898 Other symptoms and signs involving the musculoskeletal system

== ENCOUNTER → 2024-09-25 08:05 | Outpatient (BNVA) | payer OTHER, SELFPAY | PROVIDERS: PCP Family Medicine; Visit Provider Family Medicine | DX: E11.65 Type 2 diabetes mellitus with hyperglycemia (principal); E65 Localized adiposity; L08.9 Local infection of the skin and subcutaneous tissue, unspecified; M79.641 Pain in right hand; R29.898 Other symptoms and signs involving the musculoskeletal system; Z79.4 Long term (current) use of insulin | CPT/HCPCS: 83036; 99212 ==

== ENCOUNTER 2024-10-03 08:03 | Outpatient (AMB) | payer OTHER, SELFPAY ==
[2024-10-03 08:08] VITALS: BP 108/62; PULSE 83; O2SAT 100; BMI 32.4
--- NOTE | 2024-10-03 08:08 | A.OFFVIS_ITS ---
Vital Signs 10/03/24 08:08 Height 5 ft 3 in Weight 182 lb 15.739 oz BMI 32.4 BP 108/62 Blood Pressure Location Rt brachial Position Sitting Pulse 83 Pulse Source Pulse Oximeter Pulse Oximetry (%) 100 Oxygen Delivery Method Room Air Intake Visit Reasons: T2DM Intake Note: Patient presents today for a follow-up on Type 2 Diabetes Mellitus: Last Diabetic eye exam was on: 10/2023 Last Podiatry exam was on: Patient does not see a Trailer Rental Clerk Most recent HbA1c: 9.3%, 10/05/2024 Random Glucose- 147 mg/dL, Today Kiln Operator Required: No Accompanied by: Self / Same As Patient Allergies Seasonal Allergies Allergy (Intermediate, Verified 09/25/24 08:36) Itchy Eyes Medication List - Last Reconciled 10/03/24 by Bree Asher PA-C blood sugar diagnostic (FreeStyle Lite Strips) DX: E11.9, test blood sugar 3 times a day, 90 days blood-glucose meter (FreeStyle Lite Meter kit) DX: E11.9, test blood sugar 3 times a day, duration 999 days blood-glucose meter,continuous (FreeStyle Miguelina 3 [place]) Use daily As directed to monitor blood glucose blood-glucose sensor (FreeStyle Miguelina 3 Plus Sensor device) Use daily As d irected to monitor glucose cyanocobalamin (vitamin B-12) 1,000 mcg PO DAILY 90 days diclofenac sodium 1% (Arthritis Pain (diclofenac)) 2 grams topical QID PRN 3 days erenumab-aooe (Aimovig Autoinjector) mg subcut amdholxvnpu-ipblqukag-cbyxiunb 100-62.5-25 mcg (Trelegy Ellipta) 1 inh inhalation DAILY glucose (Dex4 Glucose) 16 grams (4 x 4 gram) PO Q15M PRN insulin lispro (Humalog KwikPen (U-100) Insulin) 5 units (0.05 mL) subcut TID ipratropium-albuterol 0.5 mg-3 mg(2.5 mg base)/3 mL 3 mL inhalation Q6-8H PRN ketoconazole 2% 1 appl topical 2XW 14 days lancets (FreeStyle Lancets) As directed Lantus Solostar U-100 Insulin (insulin glargine) 35 units (0.35 mL) subcut DAILY 30 days NS lidocaine 5% 1 patch topical DAILY 30 days loratadine 10 mg PO DAILY 90 days meloxicam 15 mg PO DAILY miscellaneous medical supply As directed, 999 days miscellaneous medical supply 1 pair diabetic shoes, Daily As directed, 999 days miscellaneous medical supply diabetic shoes as directed; omeprazole 20 mg PO DAILY 30 days pantoprazole 40 mg PO DAILY 30 days pen needle, diabetic (BD Ultra-Fine Mini Pen Needle) 1 ea miscellaneous TID-QID 90 days [theraworx 1 appl topical BID PRN 30 days] topiramate 50 mg PO BID 1 month walker (Ultra-Light Rollator mis) 3 wheel, collapsible, with?seat?and?brakes. Daily?As directed, 999 days HPI HPI T2DM: Details: Patient is a 58-year-old female with a significant past medical history of anxiety, depression, housing/financial insecurity, diabetes, B12 deficiency, obesity, IBS, migraines presenting today for a follow up regarding dm. Endo: She was diagnosed with diabetes around the age of 52. Her most recent A1c was 9.3. Blood sugar today in the office is 147. She is currently on Lantus 44 units, Humalog 5 units 3 times a day with meals, glipizide 10 mg daily, Mounjaro 5 mg weekly. She has no side effects with this current regimen. Previous med- Trulicity higher doses make her feel a little sick and states that they did discuss switching her to Wegovy. She states her insurance denied the Wegovy and upon further review of her previous medications she states that she did not tolerate the Ozempic. She has tried metformin in the past but it caused GI distress. CGM- GMI not enough data, very hyperglycemic 1%, hypergylcemic 4%, in range 86%, hypogylcemic 9% -She is going low at night, early in the morning and during the day a few times. She states she corrects it with juice sometimes but overall states it resolves spontaneously. She does not confirm this with a fingerstick. She says that she feels a little tired when the sensor is going off with low blood sugars but states that usually within a half an hour the sugars are back to normal. She never feels like she is dizzy are going to faint. States that she has a family history of diabetes but her mother she thinks it is a type 2 in her maternal grandmother was a type 1 diabetic. She was supposed to get labs done but states that she forgot. CV: Blood pressure today in the office is 108/62. Has not had any watery today. She is not on a statin. Last LDL was unknown. States that she has not had labs in quite some time. Psych: Currently struggling with anxiety, depression, bipolar disorder. States that she is on Rexulti and Topamax it does seem to be a little helpful for her and she is following closely with Behavioral Health. She states that this is her biggest barrier to taking care of herself. When she gets depressed she is not always compliant with her regimens or diet. [facility] Medical History Insulin dependent diabetes mellitus LARIOS (nonalcoholic steatohepatitis) Surgical History History of bilateral carpal tunnel release History of knee surgery History of loop electrical excision procedure (LEEP) H/O repair of left rotator cuff History of sinus surgery History of facial surgery Family History Father Skin cancer Mental health disorder Substance abuse Mother Ovarian cancer Diabetes Mental health disorder Maternal Aunt Breast cancer Maternal Uncle Lung cancer Family/Other Mental health disorder Family/Other Substance abuse Social History Household Members: Family Both parents involved: No Caregiver staying overnight: No Housing: House (mobile home) Housing Other:: mobile home Do you presently have visiting nurse or other home services: No 75 years or older and lives alone: No Alcohol intake: current Alcohol intake frequency: a few times a month Patient Tobacco Use Status: Never used Tobacco e-Cigarette/Vaping Use: Never Used Second Hand Smoke Exposure: No Substance Use Type: Crack/Cocaine service: No Current occupational status: disabled Current occupational exposures/hazards: No Cognitive needs: No Hearing needs: No Vision needs: Yes Physical Exam Vital Signs: Last Vital Signs Pulse 83 10/03/24 08:08 BP 108/62 10/03/24 08:08 Pulse Ox 100 10/03/24 08:08 Oxygen Delivery Method Room Air 10/03/24 08:08 BMI result Body Mass Index 32.4 Const Orientation/consciousness: patient oriented x3 HEENT Ears: hearing grossly normal bilaterally Neck Thyroid: Thyroid normal Lymphatic: no lymphadenopathy noted Resp Auscultation: clear to auscultation bilaterally Cardio Rate: regular rate Rhythm: regular rhythm Heart sounds: S1 normal heart sound present and S2 normal heart sound present Skin General skin exam: no rashes or lesions noted Neuro General: patient oriented x3, gait normal and no focal motor deficits Results Reviewed Results Reviewed: Laboratory Tests 09/25/24 10/03/24 08:42 08:13 Glucose (Clinic) 147 H Hgb A1c (Clinic) 9.3 H Assessment & Plan Assessment & Plan (1) Uncontrolled type 2 diabetes mellitus with hyperglycemia, with long-term current use of insulin: Code(s): E11.65 - Type 2 diabetes mellitus with hyperglycemia; Z79.4 - [facility] (current) use of insulin Category: Medical Plan: Given her recent hypoglycemic events we are going to reduce the Lantus to 35 units daily. She will continue with the Humalog 5 units with meals. We will discontinue the glipizide completely. I have increased the Mounjaro to 7.5 mg weekly. She is due this Sunday for an injection and we will take the higher dosage as she is currently tolerating the 5 mg without difficulty. New testing supplies were ordered. Refilled sensors today in the office. Provided back up sensor. Reviewed rule of 15s. She has glucose tabs at home. Get blood work done before our next appointment. Return in 2-4 weeks to be reassessed given the low blood sugars. She will call me if there are any low blood sugars despite making these changes. Medications: New tirzepatide (Mounjaro) 7.5 mg (0.5 mL) subcut QWEEK 2 mL 5RF Changed From Lantus Solostar U-100 Insulin (insulin glargine) WAQAS. No substitutions. 44 units (0.44 mL) subcut DAILY 30 days 15 mL 3RF NS E11.65 - Type 2 diabetes mellitus with hyperglycemia, Z79.4 - microsoft dynamics developer (current) use of insulin To Lantus Solostar U-100 Insulin (insulin glargine) WAQAS. No substitutions. 35 units (0.35 mL) subcut DAILY 30 days 15 mL 3RF NS E11.65 - Type 2 diabetes mellitus with hyperglycemia, Z79.4 - microsoft dynamics developer (current) use of insulin Refilled blood-glucose sensor (FreeStyle Miguelina 3 Plus Sensor device) Use daily As directed to monitor glucose 2 ea 11RF E08.29 - Diabetes mellitus due to underlying condition with other diabetic kidney complication, R80.9 - Proteinuria, unspecified, Z79.4 - [facility] (current) use of insulin blood-glucose meter (FreeStyle Lite Meter kit) DX: E11.9, test blood sugar 3 times a day, duration 999 days 1 ea 0RF E11.65 - Type 2 diabetes mellitus with hyperglycemia, E11.9 - Type 2 diabetes mellitus without complications Discontinued glipizide ER Discontinued Reason: Doctor's Order 10 mg PO DAILY 10 days 10 tabs 3RF E11.65 - Type 2 diabetes mellitus with hyperglycemia, Z79.4 - [facility] (current) use of insulin Patient Instructions: Given her recent hypoglycemic events we are going to reduce the Lantus to 35 units daily. She will continue with the Humalog 5 units with meals. We will discontinue the glipizide completely. I have increased the Mounjaro to 7.5 mg weekly. She is due this Sunday for an injection and we will take the higher dosage as she is currently tolerating the 5 mg without difficulty. New testing supplies were ordered. Refilled sensors today in the office. Provided back up sensor. Get blood work done before our next appointment. Return in 2-4 weeks to be reassessed given the low blood sugars. She will call me if there are any low blood sugars despite making these changes. Coding Level of Care Code Est Pt Level 4 (97193) Complex EM visit Add On G2211 Diagnoses Uncontrolled type 2 diabetes mellitus with hyperglycemia, with long-term current use of insulin E11.65; Z79.4
[2024-10-03 08:17] LABS: Glucose, Whole Blood 147 mg/dL (60-115)
== END 2024-10-03 08:41 | disposition home or self-care (01) ==
LOC: HO.ENCR 08:03
PROVIDERS: PCP Family Medicine; Visit Provider Physician Assistant
DX: E11.65 Type 2 diabetes mellitus with hyperglycemia (principal); Z79.4 Long term (current) use of insulin

== ENCOUNTER → 2024-10-03 08:03 | Outpatient (BNVA) | payer OTHER, SELFPAY | PROVIDERS: PCP Family Medicine; Visit Provider Physician Assistant | DX: E11.65 Type 2 diabetes mellitus with hyperglycemia (principal); Z79.4 Long term (current) use of insulin | CPT/HCPCS: 82947; 99212 ==

== ENCOUNTER 2024-10-23 08:57 | Outpatient (REF) | payer OTHER, SELFPAY ==
[2024-10-23 12:11] LABS: Estimated Average Glucose 134 mg/dL; Hemoglobin A1C 167.0559 umol/L; Hemoglobin A1c % 6.3 % (<6.0); Total Hemoglobin (HGBA1C) 3644.6863 umol/L
[2024-10-23 12:21] LABS: Alanine Aminotransferase 75 U/L (0-31); Alkaline Phosphatase 139 U/L (39-117); Anion Gap 12 (12-20); Aspartate Amino Transferase 176 U/L (5-31); Bilirubin Total 0.9 mg/dL (0.0-1.0); Blood Urea Nitrogen 13 mg/dL (9-16); Calcium 9.4 mg/dL (8.4-10.2); Carbon Dioxide 22 mmol/L (22-29); Chloride 110 mmol/L (96-108); Cholesterol 168 mg/dL (<200); Estimated Glomerular Filt Rate > 60; Glucose Fasting 99 mg/dL (60-99); HDL Cholesterol 34 mg/dL (>40); LDL Cholesterol Calculated 105 mg/dL (<100); Potassium 3.8 mmol/L (3.3-5.1); Sodium 140 mmol/L (135-145); Triglycerides 146 mg/dL (<150)
[2024-10-23 12:26] LABS: Creatinine Urine 159.18 mg/dL; Microalbum/Creatinine Ratio Ur 4.3 ug/mg cr (<30)
[2024-10-24 08:48] LABS: C Peptide 3.25 ng/mL (0.80-3.85)
[2024-10-27 16:24] LABS: Glutamic acid decarboxylase Ab 26 IU/mL (<5)
[2024-10-29 23:28] LABS: Islet Cell Antibody Screen NEGATIVE (NEGATIVE)
== END 2024-10-23 08:58 | disposition home or self-care (01) ==
LOC: HO.WFDLDS 08:57
PROVIDERS: Visit Provider Physician Assistant
DX: E11.65 Type 2 diabetes mellitus with hyperglycemia (principal); Z79.4 Long term (current) use of insulin; E11.40 Type 2 diabetes mellitus with diabetic neuropathy, unspecified
CPT/HCPCS: 36415; 80053; 80061; 82043; 82570; 83036; 84681; 86341

== ENCOUNTER 2024-10-24 08:34 | Outpatient (AMB) | payer OTHER, SELFPAY ==
--- NOTE | 2024-10-24 08:48 | A.OFFVIS_ITS ---
Vital Signs 10/24/24 08:49 Height 5 ft 3 in Weight 174 lb 2.643 oz BMI 30.8 BP 122/78 Blood Pressure Location Lt brachial Position Sitting Pulse 78 Pulse Source Pulse Oximeter Pulse Oximetry (%) 98 Oxygen Delivery Method Room Air Intake Visit Reasons: Hypoglycemia Intake Note: Patient present today to follow up on Type 2 Diabetes Mellitus. Last Diabetic Eye exam: 10/2023, has an appt soon Last Podiatry Visit: Does not see a Grain Receiver Random Glucose: 117 mg/dL HgA1C: 6.3%, 10/23/2024 Sales Development Associate Required: No Accompanied by: Self / Same As Patient Allergies Seasonal Allergies Allergy (Intermediate, Verified 10/24/24 08:54) Itchy Eyes Medication List - Last Reconciled 10/24/24 by Bree Asher PA-C blood sugar diagnostic (FreeStyle Lite Strips) DX: E11.9, test blood sugar 3 times a day, 90 days blood-glucose meter (FreeStyle Lite Meter kit) DX: E11.9, test blood sugar 3 times a day, duration 999 days blood-glucose sensor (FreeStyle Miguelina 3 Plus Sensor device) Use daily As directed to monitor glucose blood-glucose,receiver dispatcher,cont (FreeStyle Miguelina 3 [place]) Use daily As directed to monitor blood glucose cyanocobalamin (vitamin B-12) 1,000 mcg PO DAILY 90 days diclofenac sodium 1% (Arthritis Pain (diclofenac)) 2 grams topical QID PRN 3 days erenumab-aooe (Aimovig Autoinjector) mg subcut osouldrfajk-cundpzvzl-rvsmljqs 100-62.5-25 mcg (Trelegy Ellipta) 1 inh inhalation DAILY glucose (Dex4 Glucose) 16 grams (4 x 4 gram) PO Q15M PRN insulin lispro (Humalog KwikPen (U-100) Insulin) 5 units (0.05 mL) subcut TID ipratropium-albuterol 0.5 mg-3 mg(2.5 mg base)/3 mL 3 mL inhalation Q6-8H PRN ketoconazole 2% 1 appl topical 2XW 14 days lancets (FreeStyle Lancets) As directed Lantus Solostar U-100 Insulin (insulin glargine) 35 units (0.35 mL) subcut DAILY 30 days NS lidocaine 5% 1 patch topical DAILY 30 days loratadine 10 mg PO DAILY 90 days meloxicam 15 mg PO DAILY miscellaneous medical supply As directed, 999 days miscellaneous medical supply 1 pair diabetic shoes, Daily As directed, 999 days miscellaneous medical supply diabetic shoes as directed; omeprazole 20 mg PO DAILY 30 days pantoprazole 40 mg PO DAILY 30 days pen needle, diabetic (BD Ultra-Fine Mini Pen Needle) 1 ea miscellaneous TID-QID 90 days [theraworx 1 appl topical BID PRN 30 days] tirzepatide (Mounjaro) 10 mg (0.5 mL) subcut QWEEK topiramate 50 mg PO BID 1 month walker (Ultra-Light Rollator misc) 3 wheel, collapsible, with?seat?and?brakes. Daily?As directed, 999 days HPI HPI Hypoglycemia: Details: Patient is a 58-year-old female with a significant past medical history of anxiety, depression, housing/financial insecurity, diabetes, B12 deficiency, obesity, IBS, migraines presenting today for a follow up regarding dm. Endo: She was diagnosed with diabetes around the age of 52. Her last A1c was 9.3 and today is 6.3. At our last visit I discontinued the glipizide and reduce the Lantus due to low blood sugars. She is currently on Lantus 35 units, Humalog 5 units 3 times a day with meals, Mounjaro 7.5 mg weekly. She has no side effects with this current regimen. She would like to increase the Mounjaro because she wants to see more weight loss. We did discuss that she has lost 8 lb since our last visit. Previous med- Trulicity higher doses make her feel a little sick and states that they did discuss switching her to Wegovy. She states her insurance denied the Wegovy and upon further review of her previous medications she states that she did not tolerate the Ozempic. She has tried metformin in the past but it caused GI distress. CGM- 6.2%, very hyperglycemic 0%, hypergylcemic 4%, in range 96%, hypogylcemic 0% No longer having any low blood sugars since our last visit. Overall feeling very well with this regimen. She says that she is still drinking more juice that I would be happy about but she has cut back. States that she has a family history of diabetes but her mother she thinks it is a type 2 in her maternal grandmother was a type 1 diabetic. CV: Blood pressure today in the office is 108/62. Has not had any watery today. She is not on a statin. Last LDL was unknown. States that she has not had labs in quite some time. Psych: Currently struggling with anxiety, depression, bipolar disorder. States that she is on Rexulti and Topamax it does seem to be a little helpful for her and she is following closely with Behavioral Health. She states that this is her biggest barrier to taking care of herself. When she gets depressed she is not always compliant with her regimens or diet. [facility] Medical History Insulin dependent diabetes mellitus LARIOS (nonalcoholic steatohepatitis) Surgical History History of bilateral carpal tunnel release History of knee surgery History of loop electrical excision procedure (LEEP) H/O repair of left rotator cuff History of sinus surgery History of facial surgery Family History Father Skin cancer Mental health disorder Substance abuse Mother Ovarian cancer Diabetes Mental health disorder Maternal Aunt Breast cancer Maternal Uncle Lung cancer Family/Other Mental health disorder Family/Other Substance abuse Social History Household Members: Family Both parents involved: No Caregiver staying overnight: No Housing: House (mobile home) Housing Other:: mobile home Do you presently have visiting nurse or other home services: No 75 years or older and lives alone: No Alcohol intake: current Alcohol intake frequency: a few times a month Patient Tobacco Use Status: Never used Tobacco e-Cigarette/Vaping Use: Never Used Second Hand Smoke Exposure: No Substance Use Type: Crack/Cocaine service: No Current occupational status: disabled Current occupational exposures/hazards: No Cognitive needs: No Hearing needs: No Vision needs: Yes Physical Exam Vital Signs: Last Vital Signs Pulse 78 10/24/24 08:49 BP 122/78 10/24/24 08:49 Pulse Ox 98 10/24/24 08:49 Oxygen Delivery Method Room Air 10/24/24 08:49 BMI result Body Mass Index 30.8 Const Orientation/consciousness: patient oriented x3 HEENT Ears: hearing grossly normal bilaterally Neck Thyroid: Thyroid normal Lymphatic: no lymphadenopathy noted Resp Auscultation: clear to auscultation bilaterally Cardio Rate: regular rate Rhythm: regular rhythm Heart sounds: S1 normal heart sound present and S2 normal heart sound present GI Inspection: Yes normal to inspection Palpation (GI): Soft to palpation and Other GI palpation findings present (nontender, no cva tenderness) Auscultation: normoactive bowel sounds Rectal Exam - Female: deferred Skin General skin exam: no rashes or lesions noted Neuro General: patient oriented x3, gait normal and no focal motor deficits Results Reviewed Results Reviewed: Laboratory Last Values Glucose (Clinic) 117 mg/dL (60-115) H 10/24/24 08:53 Laboratory Tests 10/23/24 08:59 AST 176 H ALT 75 H Alkaline Phosphatase 139 H Triglycerides 146 Cholesterol 168 LDL Cholesterol, Calc 105 H HDL Cholesterol 34 L Assessment & Plan Assessment & Plan (1) Uncontrolled type 2 diabetes mellitus with hyperglycemia, with long-term current use of insulin: Code(s): E11.65 - Type 2 diabetes mellitus with hyperglycemia; Z79.4 - ferry terminal agent (current) use of insulin Category: Medical Plan: Patient would like to increase Mounjaro for benefit of weight loss. I will increase this and we discussed reducing her Lantus to 30 units if she feels like her blood sugars are going low. If she is not eating she is to not administer Humalog which she reiterates. She will use Humalog 5 units with meals. I will have her follow up for diabetic management in 2 months. Sooner if needed. We reviewed signs and symptoms of hyper and hypoglycemia that would require emergent medical treatment. (2) Elevated LFTs: Code(s): R79.89 - Other specified abnormal findings of blood chemistry Category: Medical Plan: She has a history of elevated LFTs however, recently this is worse. Labs have been ordered and advised to complete this. Ultrasound ordered. Advised short term follow up with PCP. We will follow up pending results and discussed likely follow up consultation with GI. Orders: Orders Complete Blood Count Auto Diff Today R94.5 - Abnormal results of liver function studies IRON PROFILE Today R94.5 - Abnormal results of liver function studies TSH reflex Free T4 Today R94.5 - Abnormal results of liver function studies Gamma Glutamyl Transpeptidase Today R94.5 - Abnormal results of liver function studies Hepatitis C Antibody Today R94.5 - Abnormal results of liver function studies Hepatitis B Surface Antigen Today R94.5 - Abnormal results of liver function studies Hepatitis A IgG Today R94.5 - Abnormal results of liver function studies Hepatitis B Surface Antibody Today R94.5 - Abnormal results of liver function studies Liver Panel Today R94.5 - Abnormal results of liver function studies Ferritin Today R94.5 - Abnormal results of liver function studies Parathyroid Hormone Intact Today R94.5 - Abnormal results of liver function studies Vitamin D 25-OH Total Today R94.5 - Abnormal results of liver function studies Alkaline Phosphatase Isoenzyme Today R94.5 - Abnormal results of liver function studies US abdomen comp w elastography Today R79.89 - Other specified abnormal findings of blood chemistry Medications: New tirzepatide (Mounjaro) 10 mg (0.5 mL) subcut QWEEK 2 mL 5RF Discontinued tirzepatide (Mounjaro) Discontinued Reason: Doctor's Order 7.5 mg (0.5 mL) subcut QWEEK 2 mL 5RF Patient Instructions: increase mounjaro to 10 mg Coding Level of Care Code Est Pt Level 4 (74494) Complex EM visit Add On G2211 Diagnoses Uncontrolled type 2 diabetes mellitus with hyperglycemia, with long-term current use of insulin E11.65; Z79.4 Elevated LFTs R79.89
[2024-10-24 08:49] VITALS: BP 122/78; PULSE 78; O2SAT 98; BMI 30.8
[2024-10-24 08:58] LABS: Glucose, Whole Blood 117 mg/dL (60-115)
== END 2024-10-24 09:12 | disposition home or self-care (01) ==
LOC: HO.ENCR 08:34
PROVIDERS: PCP Family Medicine; Visit Provider Physician Assistant
DX: E11.65 Type 2 diabetes mellitus with hyperglycemia (principal); Z79.4 Long term (current) use of insulin; R79.89 Other specified abnormal findings of blood chemistry

== ENCOUNTER → 2024-10-24 08:34 | Outpatient (BNVA) | payer OTHER, SELFPAY | PROVIDERS: PCP Family Medicine; Visit Provider Physician Assistant | DX: E11.65 Type 2 diabetes mellitus with hyperglycemia (principal); R79.89 Other specified abnormal findings of blood chemistry; Z79.4 Long term (current) use of insulin | CPT/HCPCS: 82947; 99212 ==

== ENCOUNTER → 2024-11-07 12:42 | Outpatient (BNVA) | payer OTHER, SELFPAY | PROVIDERS: PCP Family Medicine; Visit Provider Physician Assistant Surgical ==

== ENCOUNTER 2024-11-14 13:27 | Outpatient (REF) | payer OTHER, SELFPAY ==
--- NOTE | 2024-11-14 13:31 | EMG_ITS ---
Chief complaint: Patient says there is no more pain since she called for this appointment. She does have history of bilateral carpal tunnel release more than 5 years ago. Reason for referral: Evaluate for Carpal Tunnel Syndrome Referred by: Paulino CHAVEZ Procedure done: Upper extremity NCS/EMG Precautions and/or limitations: None The limb temperature was monitored continuously and remained between 32-36 degrees C during the performance of the NCS. Nerve Conduction Studies Anti Sensory Summary Table ?Stim Site NR Onset (ms) Norm Onset (ms) Peak (ms) Norm Peak (ms) O-P Amp (?V) Norm O-P Amp Site1 Site2 Delta-0 (ms) Dist (cm) Kingsley (m/s) Norm Kingsley (m/s) Left Median Anti Sensory (2nd Digit) Wrist ? 3.8 5.0 <3.6 15.5 >10 Wrist 2nd Digit 3.8 14.0 37 Right Median Anti Sensory (2nd Digit) Wrist ? 3.7 4.6 <3.6 14.4 >10 Wrist 2nd Digit 3.7 14.0 38 Right Radial Anti Sensory (Thumb) Forearm ? 1.6 2.2 <3.1 12.2 Forearm Thumb 1.6 0.0 Left Ulnar Anti Sensory (5th Digit) Wrist ? 2.8 3.4 <3.7 18.4 >15.0 Wrist 5th Digit 2.8 14.0 50 Right Ulnar Anti Sensory (5th Digit) Wrist ? 2.6 3.4 <3.7 18.0 >15.0 Wrist 5th Digit 2.6 14.0 54 Motor Summary Table ?Stim Site NR Onset (ms) Norm Onset (ms) O-P Amp (mV) Norm O-P Amp iAmp (mV) Amp (1st) (%) Site1 Site2 Delta-0 (ms) Dist (cm) Kingsley (m/s) Norm Kingsley (m/s) Left Median Motor (Abd Poll Brev) Wrist ? 4.5 <3.9 7.5 >4.5 9.5 100.0 Elbow Wrist 3.9 19.0 49 >45 Elbow ? 8.4 6.8 8.6 90.7 Right Median Motor (Abd Poll Brev) Wrist ? 4.5 <3.9 6.2 >4.5 7.7 100.0 Elbow Wrist 3.5 17.0 49 >45 Elbow ? 8.0 5.4 6.3 87.1 Left Ulnar Motor (Abd Dig Minimi) Wrist ? 2.9 <3.0 9.1 >5 10.9 100.0 B Elbow Wrist 3.3 16.0 48 >45 B Elbow ? 6.2 8.9 10.8 97.8 A Elbow B Elbow 1.8 10.0 56 >45 A Elbow ? 8.0 8.5 10.6 93.4 Right Ulnar Motor (Abd Dig Minimi) Wrist ? 3.0 <3.0 10.4 >5 12.5 100.0 B Elbow Wrist 3.3 16.0 48 >45 B Elbow ? 6.3 9.2 11.3 88.5 A Elbow B Elbow 1.6 10.0 62 >45 A Elbow ? 7.9 9.8 11.9 94.2 EMG ?Side Muscle Nerve Root Ins Act Fibs Psw Amp Dur Poly Recrt Int Pat Comment Right 1stDorInt Ulnar C8-T1 Nml Nml Nml Nml Nml 0 Nml Complete Right FlexCarRad Median C6-7 Nml Nml Nml Nml Nml 0 Nml Complete Right Biceps Musculocut C5-6 Nml Nml Nml Nml Nml 0 Nml Complete Right Triceps Radial C6-7-8 Nml Nml Nml Nml Nml 0 Nml Complete Right Deltoid Axillary C5-6 Nml Nml Nml Nml Nml 0 Nml Complete Left 1stDorInt Ulnar C8-T1 Nml Nml Nml Nml Nml 0 Nml Complete Left FlexCarRad Median C6-7 Nml Nml Nml Nml Nml 0 Nml Complete Left Biceps Musculocut C5-6 Nml Nml Nml Nml Nml 0 Nml Complete Left Triceps Radial C6-7-8 Nml Nml Nml Nml Nml 0 Nml Complete Left Deltoid Axillary C5-6 Nml Nml Nml Nml Nml 0 Nml Complete FINDINGS: Bilateral median motor nerves showed prolonged distal latency, normal amplitude and normal conduction velocity. Bilateral median sensory nerves showed prolonged peak latency. All other nerves tested were within normal. Concentric needle EMG was performed in selected muscles of the bilateral upper extremities. Study did not reveal signs of electric abnormalities as shown in the table above. IMPRESSION: 1. This is an abnormal study. 2. There is electrodiagnostic evidence for bilateral moderate-severe median neuropathy at the wrist, consistent with carpal tunnel syndrome. 3. There is no electrodiagnostic evidence for ulnar neuropathy, brachial plexopathy, or cervical radiculopathy. Clinical comment: No previous EMG available for comparison. Thank you for your kind referral. Hollie Benitez MD, [place] Board Certified, [place] [employer] and [employer] (ABPMR) Board Certified, [place] Board of Electrodiagnostic [employer] (ABEM) CODIN [phone] x 2 MTDD
== END 2024-11-14 13:28 | disposition home or self-care (01) ==
LOC: HO.NEURO 13:27
PROVIDERS: PCP Family Medicine
DX: R20.0 Anesthesia of skin (principal); R20.2 Paresthesia of skin
CPT/HCPCS: 95886; 95911

== ENCOUNTER → 2024-11-14 13:31 | Outpatient (BNV) | payer OTHER, SELFPAY | PROVIDERS: PCP Family Medicine; Visit Provider Physical Medicine & Rehabilitation | DX: G56.03 Carpal tunnel syndrome, bilateral upper limbs (principal) | CPT/HCPCS: 95886; 95911 ==

== ENCOUNTER 2024-12-25 09:06 | Outpatient (REF) | payer OTHER, SELFPAY ==
[2024-12-25 11:23] LABS: MANUAL DIFF FLAG NO
[2024-12-25 11:31] LABS: Basophils Percent Auto 0.6 % (0-2); Eosinophils Absolute Auto 0.1 X10*3/uL (0.0-0.4); Eosinophils Percent Auto 2.2 % (0-4); Hematocrit 39.5 % (37.0-47.0); Hemoglobin 13.5 g/dl (12.0-16.0); Imm Gran Abs Auto 0.02 X10*3/uL (0.00-0.03); Imm Gran Pct Auto 0.4 % (0.0-0.4); Lymphocytes Absolute Auto 1.6 X10*3/uL (1.2-4.9); Lymphocytes Percent Auto 31.9 % (20-40); Mean Corpuscular HGB Conc 34.2 g/dl (31.0-35.0); Mean Corpuscular Volume 90.8 fL (80.0-98.0); Monocytes Absolute Auto 0.2 X10*3/uL (0.1-1.2); Monocytes Percent Auto 4.8 % (2-11); Neutrophils Percent Auto 60.1 % (45-73); Red Blood Count 4.35 X10*6/uL (4.20-5.50); White Blood Count 5.1 X10*3/uL (4.8-10.8)
[2024-12-25 11:45] LABS: Platelet Count 131 X10*3/uL (160-400)
[2024-12-25 11:49] LABS: Alanine Aminotransferase 39 U/L (0-31); Albumin Level 4.1 g/dL (3.5-5.0); Alkaline Phosphatase 161 U/L (39-117); Aspartate Amino Transferase 51 U/L (5-31); Bilirubin Direct 0.2 mg/dL (0.0-0.5); Bilirubin Total 0.5 mg/dL (0.0-1.0); Gamma Glutamyl Transpeptidase 105 U/L (7-33); Iron 71 mcg/dL (30-160); Percent Iron Saturation 27 % (15-50); Total Iron Binding Capacity 260 mcg/dL (228-428); Total Protein 7.2 g/dL (6.5-8.0); Unsaturated Iron Binding 189 ug/dL
[2024-12-25 12:03] LABS: HBS Num1 1.12 mIU/mL (0-7.99); HBsAGNum1 0.35 S/CO (0.00-0.99); Hepatitis B Surface Antigen Negative (Negative); ~HepC Num1 0.12 S/CO (0.00-0.79); ~Hepatitis B Surface Antibody NONREACTIVE (Nonreactive); ~Hepatitis C Antibody Nonreactive (Nonreactive)
[2024-12-25 12:08] LABS: Ferritin 524 ng/mL (10-250); TSH reflex Free T4 2.27 uIU/mL (0.32-4.0); Vitamin D 25-OH Total 24.3 ng/mL (>30)
[2024-12-25 12:10] LABS: Parathyroid Hormone Intact 24.9 pg/mL (8.7-77.1)
[2024-12-26 08:14] LABS: Hepatitis A Antibody IgG Nonreactive (Nonreactive); ~Hepatitis A Antibody IgG 0.32 S/CO (0.00-0.99)
[2024-12-29 18:22] LABS: Alk.Phos Iso. Macrohepatic 0 % (<=0); Alk.Phos Isoenzymes Bone 21 % (28-66); Alk.Phos Isoenzymes Intest 26 % (1-24); Alk.Phos Isoenzymes Liver 53 % (25-69); Alk.Phos Isoenzymes Placental 0 % (<=0); Alk.Phos Isoenzymes Total 144 U/L (37-153)
== END 2024-12-25 09:07 | disposition home or self-care (01) ==
LOC: HO.WFDLDS 09:06
PROVIDERS: Visit Provider Physician Assistant
DX: R94.5 Abnormal results of liver function studies (principal)
CPT/HCPCS: 36415; 80076; 82306; 82728; 82977; 83540; 83970; 84080; 84443; 85025; 86706; 86708; 86803; 87340

== ENCOUNTER 2024-12-26 09:39 | Outpatient (AMB) | payer OTHER, SELFPAY ==
--- NOTE | 2024-12-26 09:41 | A.OFFVIS_ITS ---
Vital Signs 12/26/24 09:42 Height 5 ft 3 in Weight 171 lb 8.314 oz BMI 30.4 BP 100/62 Blood Pressure Location Lt brachial Position Sitting Pulse 77 Pulse Source Pulse Oximeter Pulse Oximetry (%) 96 Oxygen Delivery Method Room Air Intake Visit Reasons: T2DM Intake Note: Patient present today for Type 2 Diabetes Mellitus Last Diabetic eye exam: 2023 Unsure of the month Last Podiatry Visit: 11/2024 Random Glucose: 100 mg/dl HgA1C: 6.3% 10/23/24 Metal Tank Builder Required: No Accompanied by: Self / Same As Patient Allergies Seasonal Allergies Allergy (Intermediate, Verified 12/26/24 09:46) Itchy Eyes Medication List - Last Reconciled 12/26/24 by Bree Asher PA-C blood sugar diagnostic (FreeStyle Lite Strips) DX: E11.9, test blood sugar 3 times a day, 90 days blood-glucose meter (FreeStyle Lite Meter kit) DX: E11.9, test blood sugar 3 times a day, duration 999 days blood-glucose sensor (FreeStyle Miguelina 3 Plus Sensor device) Use daily As directed to monitor glucose blood-glucose,travertine installer,cont (FreeStyle Miguelina 3 [place]) Use daily As directed to monitor blood glucose cyanocobalamin (vitamin B-12) 1,000 mcg PO DAILY 90 days diclofenac sodium 1% (Arthritis Pain (diclofenac)) 2 grams topical QID PRN 3 days erenumab-aooe (Aimovig Autoinjector) mg subcut gwxqvwngpet-uemucxnfg-imlzinkn 100-62.5-25 mcg (Trelegy Ellipta) 1 inh inhalation DAILY glucose (Dex4 Glucose) 16 grams (4 x 4 gram) PO Q15M PRN insulin lispro (Humalog KwikPen (U-100) Insulin) 5 units (0.05 mL) subcut TID ipratropium-albuterol 0.5 mg-3 mg(2.5 mg base)/3 mL 3 mL inhalation Q6-8H PRN ketoconazole 2% 1 appl topical 2XW 14 days Lactobacillus rhamnosus GG 1 cap PO DAILY 90 days lancets (FreeStyle Lancets) As directed Lantus Solostar U-100 Insulin (insulin glargine) 35 units (0.35 mL) subcut DAILY 30 days NS lidocaine 5% 1 patch topical DAILY 30 days loratadine 10 mg PO DAILY 90 days meloxicam 15 mg PO DAILY 30 days miscellaneous medical supply As directed, 999 days miscellaneous medical supply 1 pair diabetic shoes, Daily As directed, 999 days miscellaneous medical supply diabetic shoes as directed; omeprazole 20 mg PO DAILY 30 days pantoprazole 40 mg PO DAILY 30 days pen needle, diabetic (BD Ultra-Fine Mini Pen Needle) 1 ea miscellaneous TID-QID 90 days [theraworx 1 appl topical BID PRN 30 days] topiramate 50 mg PO BID 1 month walker (Ultra-Light Rollator mis) 3 wheel, collapsible, with?seat?and?brakes. Daily?As directed, 999 days HPI HPI T2DM: Details: Patient is a 59-year-old female with a significant past medical history of anxiety, depression, housing/financial insecurity, diabetes, B12 deficiency, obesity, IBS, migraines presenting today for a follow up regarding dm. Endo: She was diagnosed with diabetes around the age of 52. Her last A1c was 6.3. She is currently on Lantus 35 units, Mounjaro 10 mg weekly. She has no side effects with this current regimen. She would like to increase the Mounjaro because she wants to see more weight loss. Previous med- Trulicity higher doses make her feel a little sick and states that they did discuss switching her to Wegovy. She states her insurance denied the Wegovy and upon further review of her previous medications she states that she did not tolerate the Ozempic. She has tried metformin in the past but it caused GI distress. Glipizide caused hypoglycemia. CGM- did not bring today She states that she has had a few low blood sugars but nothing she has had to treat. She is trying to cut back on the juice. States that she has a family history of diabetes but her mother she thinks it is a type 2 in her maternal grandmother was a type 1 diabetic. CV: Blood pressure today in the office is 100/62. She is not on a statin. Last LDL was unknown. States that she has not had labs in quite some time. GI: recent labs show elevated lfts and ferritin. Denies any known history of hemochromatosis. She states that she used to follow with GI over at [facility] for fatty liver but it has been ?a while?. She says that she does not have fatty l iver from drinking but from her diabetes. She says that she does not drink alcohol. Psych: Currently struggling with anxiety, depression, bipolar disorder. States that she is on Rexulti and buspar (recently added she thinks) and topamax. it does seem to be a little helpful for her and she is following closely with Behavioral Health. She states that she is finally doing better. [facility] Medical History Insulin dependent diabetes mellitus LARIOS (nonalcoholic steatohepatitis) Surgical History History of bilateral carpal tunnel release History of knee surgery History of loop electrical excision procedure (LEEP) H/O repair of left rotator cuff History of sinus surgery History of facial surgery Family History Father Skin cancer Mental health disorder Substance abuse Mother Ovarian cancer Diabetes Mental health disorder Maternal Aunt Breast cancer Maternal Uncle Lung cancer Family/Other Mental health disorder Family/Other Substance abuse Social History Household Members: Family Both parents involved: No Caregiver staying overnight: No Housing: House (mobile home) Housing Other:: mobile home Do you presently have visiting nurse or other home services: No 75 years or older and lives alone: No Alcohol intake: current Alcohol intake frequency: a few times a month Patient Tobacco Use Status: Never used Tobacco e-Cigarette/Vaping Use: Never Used Second Hand Smoke Exposure: No Substance Use Type: Crack/Cocaine service: No Current occupational status: disabled Current occupational exposures/hazards: No Cognitive needs: No Hearing needs: No Vision needs: Yes Physical Exam Vital Signs: Last Vital Signs Pulse 77 12/26/24 09:42 BP 100/62 12/26/24 09:42 Pulse Ox 96 12/26/24 09:42 Oxygen Delivery Method Room Air 12/26/24 09:42 BMI result Body Mass Index 30.4 Const Orientation/consciousness: patient oriented x3 HEENT Ears: hearing grossly normal bilaterally Neck Thyroid: Thyroid normal Lymphatic: no lymphadenopathy noted Resp Auscultation: clear to auscultation bilaterally Cardio Rate: regular rate Rhythm: regular rhythm Heart sounds: S1 normal heart sound present and S2 normal heart sound present GI Inspection: Yes normal to inspection Palpation (GI): Soft to palpation and Other GI palpation findings present (nontender, no cva tenderness) Auscultation: normoactive bowel sounds Skin General skin exam: no rashes or lesions noted Neuro General: patient oriented x3, gait normal and no focal motor deficits Results Reviewed Results Reviewed: Laboratory Last Values Glucose (Clinic) 100 mg/dL (60-115) 12/26/24 09:48 Assessment & Plan Assessment & Plan (1) Uncontrolled type 2 diabetes mellitus with hyperglycemia, with long-term current use of insulin: Code(s): E11.65 - Type 2 diabetes mellitus with hyperglycemia; Z79.4 - long term care phlebotomist (current) use of insulin Category: Medical Plan: Increase Mounjaro to 12.5 mg weekly Reduce Lantus to 25 units daily She will follow up in 3 months. Sooner if needed or if having any low blood sugars. (2) Elevated LFTs: Code(s): R79.89 - Other specified abnormal findings of blood chemistry Category: Medical Plan: [facility] She is not sure if she has seen them within the last year or 2. I did order an abdominal ultrasound at our last visit in October but she has not yet scheduled this. Discussed the importance of this. Advised her that I am concerned for progression of her possible fatty liver to cirrhosis as her platelets were a little low today along with her liver labs being elevated. (3) Elevated ferritin: Code(s): R79.89 - Other specified abnormal findings of blood chemistry Category: Medical Plan: We will rule out hemochromatosis. Referral to GI Denies alcohol use Has follow up with PCP Orders: Orders DNA Analysis Hemochromatosis Today R79.89 - Other specified abnormal findings of blood chemistry Referrals Gastroenterology Referral E11.65 - Type 2 diabetes mellitus with hyperglycemia, R79.89 - Other specified abnormal findings of blood chemistry, Z79.4 - long term care phlebotomist (current) use of insulin Medications: New tirzepatide (Mounjaro) 12.5 mg (0.5 mL) subcut QWEEK 2 mL 4RF Changed From Lantus Solostar U-100 Insulin (insulin glargine) WAQAS. No substitutions. 35 units (0.35 mL) subcut DAILY 30 days 15 mL 3RF NS E11.65 - Type 2 diabetes mellitus with hyperglycemia, Z79.4 - long term care phlebotomist (current) use of insulin To Lantus Solostar U-100 Insulin (insulin glargine) WAQAS. No substitutions. 25 units (0.25 mL) subcut DAILY 30 days 15 mL 3RF NS E11.65 - Type 2 diabetes mellitus with hyperglycemia, Z79.4 - senior living (current) use of insulin Refilled blood sugar diagnostic (FreeStyle Lite Strips) DX: E11.9, test blood sugar 3 times a day, 90 days 300 ea 4RF E11.65 - Type 2 diabetes mellitus with hyperglycemia, E11.9 - Type 2 diabetes mellitus without complications Discontinued insulin lispro (Humalog KwikPen (U-100) Insulin) with breakfast, lunch, and supper Discontinued Reason: Duplicate 5 units (0.05 mL) subcut TID 15 mL 5RF Coding Level of Care Code Est Pt Level 4 (83942) Complex EM visit Add On G2211 Diagnoses Uncontrolled type 2 diabetes mellitus with hyperglycemia, with long-term current use of insulin E11.65; Z79.4 Elevated LFTs R79.89 Elevated ferritin R79.89
[2024-12-26 09:42] VITALS: BP 100/62; PULSE 77; O2SAT 96; BMI 30.4
[2024-12-26 09:51] LABS: Glucose, Whole Blood 100 mg/dL (60-115)
== END 2024-12-26 10:07 | disposition home or self-care (01) ==
LOC: HO.ENCR 09:39
PROVIDERS: PCP Family Medicine; Visit Provider Physician Assistant
DX: E11.65 Type 2 diabetes mellitus with hyperglycemia (principal); Z79.4 Long term (current) use of insulin; R79.89 Other specified abnormal findings of blood chemistry

== ENCOUNTER → 2024-12-26 09:39 | Outpatient (BNVA) | payer OTHER, SELFPAY | PROVIDERS: PCP Family Medicine; Visit Provider Physician Assistant | DX: E11.65 Type 2 diabetes mellitus with hyperglycemia (principal); E53.8 Deficiency of other specified B group vitamins; E66.9 Obesity, unspecified; Z68.30 Body mass index [BMI] 30.0-30.9, adult; R79.89 Other specified abnormal findings of blood chemistry; Z79.4 Long term (current) use of insulin | CPT/HCPCS: 82947; 99212 ==

== ENCOUNTER 2024-12-26 10:17 | Outpatient (REF) | payer OTHER, SELFPAY | END 2024-12-26 10:18 | disposition home or self-care (01) | LOC: HO.10HDL 10:17 | PROVIDERS: Visit Provider Physician Assistant | DX: R79.89 Other specified abnormal findings of blood chemistry (principal) | CPT/HCPCS: 36415; 81256 ==

== ENCOUNTER 2024-12-30 10:10 | Outpatient (AMB) | payer OTHER, SELFPAY ==
--- NOTE | 2024-12-30 10:17 | MHC.OFFVIS ---
Vital Signs 12/30/24 10:20 Height 5 ft 3 in Weight 174 lb BMI 30.8 Handedness Ambidextrous Intake Visit Reasons: BIOMEDICAL ENGINEERING TECHNOLOGIST-B/L hand EMG review Intake Note: Linda is a 59 year old ambidextrous female who presents today for a new patient visit for evaluation of her bilateral upper extremities, right greater than left. Reports she has been dropping objects from her hands. Lifting, opening jars, and prolonged gripping causes her numbness to exacerbate. Anything with vibration such as power tools or using the lawn bung remover also exacerbates her numbness and tingling. She states her fingers are not affected at the moment, she feels all her symptoms in her wrist and deep in the elbows. She would like to discuss surgery. Hx of B/L carpal tunnel release at least 10 years ago here at [facility]. Hx of Type 2 diabetes, per Endocrinology note from 12/26/24 HgA1C: 6.3% 10/23/24 EMG/NCS done on 11/14/24 IMPRESSION: 1. This is an abnormal study. 2. There is electrodiagnostic evidence for bilateral moderate-severe median neuropathy at the wrist, consistent with carpal tunnel syndrome. 3. There is no electrodiagnostic evidence for ulnar neuropathy, brachial plexopathy, or cervical radiculopathy. Allergies Seasonal Allergies Allergy (Intermediate, Verified 12/30/24 10:20) Itchy Eyes HPI HPI BIOMEDICAL ENGINEERING TECHNOLOGIST-B/L hand EMG review: Details: Linda is a 59 year old ambidextrous female who presents today for a new patient visit for evaluation of her bilateral upper extremities, right greater than left. Reports she has been dropping objects from her hands. Lifting, opening jars, and prolonged gripping causes her numbness to exacerbate. Anything with vibration such as power tools or using the lawn bung remover also exacerbates her numbness and tingling. She states her fingers are not affected at the moment, she feels all her symptoms in her wrist and deep in the elbows. She would like to discuss surgery. Hx of B/L carpal tunnel release at least 10 years ago here at [facility]. Hx of Type 2 diabetes, per Endocrinology note from 12/26/24 HgA1C: 6.3% 10/23/24 EMG/NCS done on 11/14/24 IMPRESSION: 1. This is an abnormal study. 2. There is electrodiagnostic evidence for bilateral moderate-severe median neuropathy at the wrist, consistent with carpal tunnel syndrome. 3. There is no electrodiagnostic evidence for ulnar neuropathy, brachial plexopathy, or cervical radiculopathy. [facility] Medical History Insulin dependent diabetes mellitus LARIOS (nonalcoholic steatohepatitis) Surgical History History of bilateral carpal tunnel release History of knee surgery History of loop electrical excision procedure (LEEP) H/O repair of left rotator cuff History of sinus surgery History of facial surgery Family History Father Skin cancer Mental health disorder Substance abuse Mother Ovarian cancer Diabetes Mental health disorder Maternal Aunt Breast cancer Maternal Uncle Lung cancer Family/Other Mental health disorder Family/Other Substance abuse Social History Household Members: Family Housing: House (mobile home) Housing Other:: mobile home Do you presently have visiting nurse or other home services: No Alcohol intake: current Alcohol intake frequency: a few times a month Patient Tobacco Use Status: Never used Tobacco e-Cigarette/Vaping Use: Never Used Second Hand Smoke Exposure: No Substance Use Type: Crack/Cocaine service: No Current occupational status: disabled Current occupational exposures/hazards: No Cognitive needs: No Hearing needs: No Vision needs: Yes Review of Systems Const All systems reviewed & are unremarkable except as noted in HPI and below Physical Exam Vital Signs: BMI result Body Mass Index 30.8 Extrem Other: Neuro: Normal sensation of the tips of all digits of bilateral hands in the office today No thenar or intrinsic wasting. Good APB muscle firing and good finger cross. Vascular: Capillary refill brisk. ROM: Patient can make a fist and extend all their digits. Skin: No lacerations or abrasions noted. General: No ecchymosis. No erythema or evidence of infection. Assessment & Plan Assessment & Plan (1) Bilateral carpal tunnel syndrome: Code(s): G56.03 - Carpal tunnel syndrome, bilateral upper limbs Category: Medical Plan 1. Right carpal tunnel syndrome Constant, daily, worse at night I educated the patient about the condition. I discussed both operative and nonoperative treatment options. The patient would like to proceed with surgery. The risks and benefits of operative treatment were discussed with the patient and the patient wishes to proceed with surgery. These risks include, but are not limited to, risk of damage to blood vessels, nerves, tendons, infection, recurrence, incomplete relief of preoperative symptoms, persistent pain, possible need for further surgery, and the risks associated with regional blocks and/or anesthesia. Plan is to take the patient to the operating room at some point in the next few weeks for the following procedures: 1. Right repeat carpal tunnel release under local All of the preoperative paperwork including the consent was discussed today. All of the patient's questions were answered in the clinic today. The patient understands that they will be in contact with our surgical oncologist to discuss scheduling their procedure. [Note particular patient concerns here] Patient reports diabetes, last A1c 6.3 Denies blood thinners, asthma, heart issues, lung issues, kidney issues, or current smoking. Coding Level of Care Code Est Pt Level 4 (31948) Diagnoses Bilateral carpal tunnel syndrome G56.03
[2024-12-30 10:20] VITALS: BMI 30.8
== END 2024-12-30 11:06 | disposition home or self-care (01) ==
LOC: HO.HOS 10:11
PROVIDERS: PCP Family Medicine
DX: G56.03 Carpal tunnel syndrome, bilateral upper limbs (principal)
CPT/HCPCS: 99214

== ENCOUNTER → 2024-12-30 10:10 | Outpatient (BNVA) | payer OTHER, SELFPAY | PROVIDERS: PCP Family Medicine | DX: G56.03 Carpal tunnel syndrome, bilateral upper limbs (principal) | CPT/HCPCS: 99212 ==

== ENCOUNTER 2025-01-20 10:31 | Outpatient (AMB) | payer OTHER, SELFPAY ==
--- NOTE | 2025-01-20 10:52 | MHC.PC.OV ---
Vital Signs 01/20/25 11:00 Height 5 ft 3 in Weight 171 lb 4 oz BMI 30.3 BP 100/68 Blood Pressure Location Rt brachial Position Sitting Pulse 79 Pulse Source Pulse Oximeter Temp 98.4 F Temp Source Temporal Artery Scan Pulse Oximetry (%) 98 Oxygen Delivery Method Room Air Intake Visit Reasons: Follow-up?diabetes- due for breast cx screening Intake Note: Linda presents in the office today for follow up to diabetes. Patient needs new RX and PA for diabetic sensors. Allergies Seasonal Allergies Allergy (Intermediate, Verified 01/20/25 10:55) Itchy Eyes Tobacco use date assessed: 01/20/25 Dental Screening Dental Screen Date: 01/20/25 Did you have a dental visit in the last 12 months?: No Did you have a dental problem in the last 6 months where you did not have access to dental care?: No Was dental information given to patient?: Patient has dentist HPI Follow-up?diabetes- due for breast cx screening HPI Details 59 y/o female presents to f/u diabetes. A1c today improved to 5.8%. She notes blood sugars at home have been in the 90s-120s. She notes it has been more than a year since her last mammogram. Pt reports restless legs. HPI Comments History of Present Illness Details Documentation assistance for Rashaun Caballero MD, was provided by Steve Quezada, County Court Judge on 01/20/2025 at 11:46 AM EST. I, Dr. Caballero, have read, observed, and verified documentation. [facility] Medical History (Updated 01/20/25 @ 11:46 by Steve Quezada) Insulin dependent diabetes mellitus LARIOS (nonalcoholic steatohepatitis) Surgical History History of bilateral carpal tunnel release History of knee surgery History of loop electrical excision procedure (LEEP) H/O repair of left rotator cuff History of sinus surgery History of facial surgery Family History Father Skin cancer Mental health disorder Substance abuse Mother Ovarian cancer Diabetes Mental health disorder Maternal Aunt Breast cancer Maternal Uncle Lung cancer Family/Other Mental health disorder Family/Other Substance abuse Social History (Updated 01/20/25 @ 10:59 by Radha Carrasquillo MA) Household Members: Family Housing: House (mobile home) Housing Other:: mobile home Do you presently have visiting nurse or other home services: No Alcohol intake: current Alcohol intake frequency: a few times a month Patient Tobacco Use Status: Never used Tobacco e-Cigarette/Vaping Use: Never Used Second Hand Smoke Exposure: No Substance Use Type: Crack/Cocaine service: No Current occupational status: disabled Current occupational exposures/hazards: No Cognitive needs: No Hearing needs: No Vision needs: Yes Questionnaire PHQ-9 Over the last 2 weeks, how often have you been bothered by any of the following problems? 1. Little interest or pleasure in doing things: nearly every day 2. Feeling down, depressed, or hopeless: nearly every day 3. Trouble falling or staying asleep, or sleeping too much: several days 4. Feeling tired or having little energy: nearly every day 5. Poor appetite or overeating: several days 6. Feeling bad about yourself - or that you are a failure or have let yourself or your family down: not at all 7. Trouble concentrating on things, such as reading the newspaper or watching television: several days 8. Moving or speaking so slowly that other people could have noticed. Or the opposite - being so fidgety or restless that you have been moving around a lot more than usual: not at all 9. Thoughts that you would be better off or of hurting yourself in some way: not at all Total score: 12 Depression Screening Interpretation: Positive Depression Screening Done: Yes 91312 - PHQ-9 Billing: Yes Source: Developed by Drs. Bradley King, Lian Nash, Boyd Hess and colleagues, with an educational gabriela from [employer]. Thrive Questionnaire Date Thrive assessed: 01/20/25 I am a: Patient What is your living situation today?: I have a place to live, but I am worried about losing it in the future Within the past 12 months, did the food you bought not last and you didn't have the money to get more?: Often true Within the past 12 months, did you worry whether your food would run out before you got money to buy more?: Often true Do you have trouble paying for medicines?: No Do you have trouble getting transportation to medical appointments?: No Do you have trouble paying your heating and electricity bill?: Yes Do you have trouble taking care of your child, family member or friend?: No Do you have trouble with day-to-day activities such as bathing, preparing meals, shopping, managing finances, etc.?: Yes Are you currently unemployed and looking for a job?: No Are you interested in more education?: Yes THRIVE Score: 4 AUDIT C Alcohol Use Questionnaire (AUDIT-C) 1. How often do you have a drink containing alcohol?: Monthly or less 2. How many drinks containing alcohol do you have on a typical day when you are drinking?: 1 or 2 3. How often do you have six or more drinks on one occasion?: Never Total Score: 1 MARLEE-7 AMB Questionnaire MARLEE-7 Date MARLEE - 7 assessed: 01/20/25 Source: Developed by Drs. Bradley King, Lian Nash, Boyd Hess and colleagues, with an educational gabriela from [employer]. Review of Systems Const Denies chills, Denies fatigue, Denies fever(s), Denies headache(s) and Denies weakness ENT Denies dizziness and Denies headache(s) Card Denies dyspnea Resp Denies cough, Denies dyspnea, Denies wheezing and Denies other (shortness of breath) Musc Denies numbness and Denies tingling Neuro Denies dizziness, Denies headache(s), Denies numbness, Denies tingling and Denies weakness Psych Denies anxiety and Denies depression Endo Denies fatigue Aller/Immun Denies wheezing Physical exam (Primary Care) Vital Signs: Last Vital Signs Temp 98.4 F 01/20/25 11:00 Pulse 79 01/20/25 11:00 BP 100/68 01/20/25 11:00 Pulse Ox 98 01/20/25 11:00 Oxygen Delivery Method Room Air 01/20/25 11:00 BMI result Body Mass Index 30.3 Tobacco/Smoking Status: Tobacco use Status Tobacco use date assessed 01/20/25 01/20/25 11:03 Patient Tobacco Use Status Never used Tobacco 01/20/25 10:59 e-Cigarette/Vaping Use Never Used 01/20/25 10:59 PHQ-9: PHQ-9 Score PHQ-9: Total score 12 01/20/25 11:46 Depression Screening Interpretation: Positive Thrive Assessment: Date of Thrive Assessment Date Thrive assessed 01/20/25 01/20/25 10:54 Const General: well developed; No acute distress Nutritional Appearance: well nourished Orientation/consciousness: patient oriented x3 HENMT Head: Yes normocephalic and Yes atraumatic Eyes General: appearance normal, both eyes and all related structures Pupils: Equal, round and reactive pupils present EOM: EOMs intact bilaterally Resp Effort & Inspection: normal respiratory effort Auscultation: clear to auscultation bilaterally Cardio Rate: regular rate Rhythm: regular rhythm Heart sounds: S1 normal heart sound present, S2 normal heart sound present, no gallops, no murmurs and no rubs Neuro General: patient oriented x3 and gait normal Cranial nerves: Yes Equal, round and reactive pupils present Psych Affect: normal affect Results AMB Hemoglobin A1c AMB Hemoglobin A1c 5.8 % Last Edit by Radha Carrasquillo MA on 01/20/25 11:12 Results Reviewed Results Reviewed: Laboratory Last Values Hgb A1c (Clinic) 5.8 % (4.0-6.0) 01/20/25 11:05 Coding Level of Care Code Est Pt Level 4 (23784) Diagnoses Insulin dependent diabetes mellitus Breast cancer screening by mammogram Z. Restless leg syndrome Screening for osteoporosis Z. Additional Codes PHQ-9 - 56699 - PHQ-9 Billing: Yes ([id number]) Assessment & Plan Assessment & Plan (1) Insulin dependent diabetes mellitus: Category: Medical Plan: A1c now 5.8%. Good control. Goal is less than 7% Continue current medications Refilled Miguelina sensors Continue diabetic diet and follow-up with endocrinology as recommended She has her eye exam this month. (2) Breast cancer screening by mammogram: Code(s): Z12.31 - Encounter for screening mammogram for malignant neoplasm of breast Category: Medical Plan: Overdue for mammogram-ordered (3) Restless leg syndrome: Code(s): G25.81 - Restless legs syndrome Category: Medical Plan: Complaint of restless leg syndrome She tried Rotigotine (Neupro) patch and this helped significantly. Will give her a script for this (4) Screening for osteoporosis: Code(s): Z13.820 - Encounter for screening for osteoporosis Category: Medical Plan: Bone density test ordered. Orders: Orders MM tomosynthesis screening BI Today Z12.31 - Encounter for screening mammogram for malignant neoplasm of breast XR DEXA axial skeleton Today M81.0 - Age-related osteoporosis without current pathological fracture AMB Hemoglobin A1c Today E11.65 - Type 2 diabetes mellitus with hyperglycemia, Z79.4 - halfway (current) use of insulin Medications: New rotigotine (Neupro) 1 patch transdermal DAILY 30 ea 3RF 30 days Refilled blood-glucose sensor ([employer] Miguelina 3 Plus Sensor device) Use daily As directed to monitor glucose 2 ea 11RF E08.29 - Diabetes mellitus due to underlying condition with other diabetic kidney complication, R80.9 - Proteinuria, unspecified, Z79.4 - halfway (current) use of insulin
[2025-01-20 11:00] VITALS: BP 100/68; PULSE 79; TEMP 36.9; O2SAT 98; BMI 30.3
== END 2025-01-20 11:54 | disposition home or self-care (01) ==
LOC: HO.HMCFM 10:34
PROVIDERS: PCP Family Medicine; Visit Provider Family Medicine
DX: Z12.31 Encounter for screening mammogram for malignant neoplasm of breast (principal); G25.81 Restless legs syndrome; Z13.820 Encounter for screening for osteoporosis; E11.65 Type 2 diabetes mellitus with hyperglycemia; Z79.4 Long term (current) use of insulin

== ENCOUNTER → 2025-01-20 10:31 | Outpatient (BNVA) | payer OTHER, SELFPAY | PROVIDERS: PCP Family Medicine; Visit Provider Family Medicine | DX: E11.9 Type 2 diabetes mellitus without complications (principal); G25.81 Restless legs syndrome; Z79.4 Long term (current) use of insulin; Z13.31 Encounter for screening for depression | CPT/HCPCS: 83036; 96127; 99212 ==

== ENCOUNTER 2025-01-26 08:52 | Day surgery (SDC) | payer OTHER, SELFPAY ==
[2025-01-26 10:37] VITALS: BMI 30.7
--- NOTE | 2025-01-26 11:37 | P.OP_ITS ---
Operative Note Operative Note Date of Service: 01/26/25 Narrative: Preop diagnosis: 1. Recurrent right Carpal tunnel syndrome Postop diagnosis: same Procedure: 1. Repeat right Carpal tunnel release Surgeon: Kandis Aviles MD Egg Breaking Machine Operator: Paulino CHAVEZ Anesthesia: local block using 1% lidocaine with epinephrine Findings: Thickened transverse carpal ligament. EBL: Less than 5 mL Specimens: None Complications: None Disposition: Brought to recovery room in stable condition Plan: Follow-up for 10-14 days for wound check and suture removal Indications: The patient is is 59 years old, with recurrent right carpal tunnel syndrome that has been unresponsive to nonoperative management. The risks and benefits of operative treatment including but not limited to risk of damage to blood vessels, nerves, tendons, infection, persistent pain, persistent symptoms, or possible need for additional surgery were discussed with the patient and the patient wishes to proceed with surgery. Procedure: Once consent was obtained a local block was performed using a combination of 1% lidocaine with epinephrine. The patient was then brought back to the operating suite and placed on the operative table in supine position. The right upper extremity was prepped and draped in a standard surgical fashion. Once assured that we had a good block, a 2.0 cm longitudinal incision was made centered over the carpal tunnel and extended proximal to the distal wrist crease in a zigzag fashion.. The incision was made through the skin to the subcutaneous tissues using a #15 blade. Dissection was made down to the level of the palmaris longus tendon in the volar forearm fascia. I made a longitudinal incision in the volar forearm fascia revealing to me the median nerve. While protecting the median nerve under direct visualization we then released the median nerve from the overlying scar tissue in a proximal to distal direction. This was done using a 15. Blade and iris scissors. Once satisfied with our repeat carpal tunnel release the wound was copiously i rrigated with normal saline and hemostasis was obtained with a brief period of local pressure. The skin edges were reapproximated with some 5.0 nylon suture material and a sterile dressing was applied. The patient appears to have tolerated the procedure well and with no complications. All digits were well vascularized at the conclusion of the case.
--- NOTE | 2025-01-26 11:37 | MHC.SHP ---
Pre-Procedural Eval Section A - 24 Hr Update-Section A only Date of Service: 01/26/25 The patient is an INPATIENT: No Changes since office visit: No Cold of Flu in the past 2 weeks, No New Medical Problems, No Changes in Medication and No Patient answered all questions The patient has been examined within 24 hours of the surgical procedure. The History & Physical has been completed within 30 days and I have reviewed it.: Yes Section B - Complete if H&P > 30 days Chief Complaint: Carpal tunnel syndrome, right upper limb Allergies: Allergies Allergy/AdvReac Type Severity Reaction Status Date / Time Seasonal Allergies Allergy Intermediate Itchy Eyes Verified 01/20/25 10:55 Plan Diagnosis/Plan: Unchanged I have reviewed the history and physical and performed a pertinent physical examination on my patient. No changes have occurred unless specified. Time Spent With Patient Time: Total time managing care of this patient today ____ minutes.
[2025-01-26 13:05] VITALS: BP 123/73; PULSE 69; O2SAT 100
== END 2025-01-26 13:06 | disposition home or self-care (01) ==
PROVIDERS: PCP Family Medicine; Visit Provider Orthopaedic Surgery
PROC: (CPT 64721; principal; 2025-01-26 14:10)
DX: G56.01 Carpal tunnel syndrome, right upper limb (principal); Z98.890 Other specified postprocedural states; R20.0 Anesthesia of skin; R20.2 Paresthesia of skin; J30.2 Other seasonal allergic rhinitis; K75.81 Nonalcoholic steatohepatitis (NASH); E11.9 Type 2 diabetes mellitus without complications; Z79.4 Long term (current) use of insulin; F14.90 Cocaine use, unspecified, uncomplicated
CPT/HCPCS: 64721; J0165; J2003

== ENCOUNTER → 2025-01-26 08:52 | Outpatient (BNV) | payer OTHER, SELFPAY | PROVIDERS: PCP Family Medicine; Visit Provider Orthopaedic Surgery | DX: G56.01 Carpal tunnel syndrome, right upper limb (principal) | CPT/HCPCS: 64721 ==

== ENCOUNTER 2025-02-09 09:35 | Outpatient (AMB) | payer OTHER, SELFPAY ==
--- NOTE | 2025-02-09 09:40 | MHC.OFFVIS ---
Vital Signs 02/09/25 09:47 Height 5 ft 3 in Weight 173 lb BMI 30.6 Intake Visit Reasons: PO-Rt Repeat CTR 01/26/25 Intake Note: Linda is a 59 year old ambidextrous female who presents today post-operatively status post repeat right carpal tunnel release, DOS: 01/26/[address] Kandis Aviles. Patient reports she is doing well. Denies pain, numbness, tingling, finger locking. She has discontinued [place]. She would like to discuss left carpal tunnel release today. Sutures removed and steri strip applied in office today. Allergies Seasonal Allergies Allergy (Intermediate, Verified 02/09/25 09:47) Itchy Eyes HPI HPI PO-Rt Repeat CTR 01/26/25: Details: Linda is a 59 year old ambidextrous female who presents today post-operatively status post repeat right carpal tunnel release, DOS: 01/26/[address] Kandis Aviles. Patient reports she is doing well. Denies pain, numbness, tingling, finger locking. She has discontinued [place]. She would like to discuss left carpal tunnel release today. Sutures removed and steri strip applied in office today. [facility] Medical History (Updated 01/20/25 @ 11:46 by Steve Quezada) Insulin dependent diabetes mellitus LARIOS (nonalcoholic steatohepatitis) Surgical History History of bilateral carpal tunnel release History of knee surgery History of loop electrical excision procedure (LEEP) H/O repair of left rotator cuff History of sinus surgery History of facial surgery Family History Father Skin cancer Mental health disorder Substance abuse Mother Ovarian cancer Diabetes Mental health disorder Maternal Aunt Breast cancer Maternal Uncle Lung cancer Family/Other Mental health disorder Family/Other Substance abuse Social History (Updated 01/20/25 @ 10:59 by Radha Carrasquillo MA) Household Members: Family Both parents involved: No Caregiver staying overnight: No Housing: House (mobile home) Housing Other:: mobile home Do you presently have visiting nurse or other home services: No 75 years or older and lives alone: No Alcohol intake: current Alcohol intake frequency: a few times a month Patient Tobacco Use Status: Never used Tobacco e-Cigarette/Vaping Use: Never Used Second Hand Smoke Exposure: No Substance Use Type: Crack/Cocaine service: No Current occupational status: disabled Current occupational exposures/hazards: No Cognitive needs: No Hearing needs: No Vision needs: Yes Review of Systems Const All systems reviewed & are unremarkable except as noted in HPI and below Physical Exam Vital Signs: BMI result Body Mass Index 30.6 Extrem Other: Neuro: Normal sensation of the tips of all digits of the right hand in the office today No thenar or intrinsic wasting. Good APB muscle firing and good finger cross. Vascular: Capillary refill brisk. ROM: Patient can make a fist and extend all their digits. Skin: Well-approximated incision site noted of the volar right wrist. Mild surrounding erythema of incision site No tenderness to palpation, no fluctuance, no evidence of deeper abscess formation General: No ecchymosis. Assessment & Plan Assessment & Plan (1) Bilateral carpal tunnel syndrome: Code(s): G56.03 - Carpal tunnel syndrome, bilateral upper limbs Category: Medical Plan 1. Status post right repeat carpal tunnel release DOS 01/26/2025 Patient appears to be recovering postoperatively Patient is educated about the typical recovery course Sutures removed in the office today without issue Patient is prescribed a one-week course of Augmentin for what appears to be mild superficial cellulitis surrounding incision site Follow-up in 1 week for wound check Medications: New amoxicillin-pot clavulanate 875-125 mg 1 tab PO BID 14 tabs 0RF 7 days Coding Level of Care Code Global (42410) Diagnoses Bilateral carpal tunnel syndrome G56.03
[2025-02-09 09:47] VITALS: BMI 30.6
== END 2025-02-09 09:55 | disposition home or self-care (01) ==
LOC: HO.HOS 09:38
PROVIDERS: PCP Family Medicine
DX: G56.03 Carpal tunnel syndrome, bilateral upper limbs (principal)
CPT/HCPCS: 99024

== ENCOUNTER → 2025-02-09 09:35 | Outpatient (BNVA) | payer OTHER, SELFPAY | PROVIDERS: PCP Family Medicine | DX: G56.03 Carpal tunnel syndrome, bilateral upper limbs (principal) | CPT/HCPCS: 99212 ==

== ENCOUNTER 2025-02-16 09:22 | Outpatient (AMB) | payer OTHER, SELFPAY ==
[2025-02-16 09:26] VITALS: BMI 30.6
--- NOTE | 2025-02-16 09:26 | MHC.OFFVIS ---
Vital Signs 02/16/25 09:26 Height 5 ft 3 in Weight 173 lb BMI 30.6 Intake Visit Reasons: PO- wound check Rt Repeat CTR 01/26/25 Intake Note: Linda is a 59 year old ambidextrous female who presents today post-operatively for a wound check status post right repeat carpal tunnel release, DOS: 01/26/[address] Aviles. At her last post-operative visit she was prescribed a one-week course of Augmentin for what appears to be mild superficial cellulitis surrounding incision site. Patient comes in today with some residual redness. She reports completing antibiotic treatment. She denies numbness, tingling, finger locking, or discharge. Allergies Seasonal Allergies Allergy (Intermediate, Verified 02/16/25 09:29) Itchy Eyes HPI HPI PO- wound check Rt Repeat CTR 01/26/25: Details: Linda is a 59 year old ambidextrous female who presents today post-operatively for a wound check status post right repeat carpal tunnel release, DOS: 01/26/[address] Aviles. At her last post-operative visit she was prescribed a one-week course of Augmentin for what appears to be mild superficial cellulitis surrounding incision site. Patient comes in today with some residual redness. She reports completing antibiotic treatment. She denies numbness, tingling, finger locking, or discharge. Of note, the patient reports that she is still interested in left repeat carpal tunnel release. Reports significant numbness and tingling in the left hand, consistent with previous evaluations [facility] Medical History (Updated 01/20/25 @ 11:46 by Steve Quezada) Insulin dependent diabetes mellitus LARIOS (nonalcoholic steatohepatitis) Surgical History History of bilateral carpal tunnel release History of knee surgery History of loop electrical excision procedure (LEEP) H/O repair of left rotator cuff History of sinus surgery History of facial surgery Family History Father Skin cancer Mental health disorder Substance abuse Mother Ovarian cancer Diabetes Mental health disorder Maternal Aunt Breast cancer Maternal Uncle Lung cancer Family/Other Mental health disorder Family/Other Substance abuse Social History (Updated 01/20/25 @ 10:59 by Radha Carrasquillo MA) Household Members: Family Housing: House (mobile home) Housing Other:: mobile home Do you presently have visiting nurse or other home services: No Alcohol intake: current Alcohol intake frequency: a few times a month Patient Tobacco Use Status: Never used Tobacco e-Cigarette/Vaping Use: Never Used Second Hand Smoke Exposure: No Substance Use Type: Crack/Cocaine service: No Current occupational status: disabled Current occupational exposures/hazards: No Cognitive needs: No Hearing needs: No Vision needs: Yes Review of Systems Const All systems reviewed & are unremarkable except as noted in HPI and below Physical Exam Vital Signs: BMI result Body Mass Index 30.6 Extrem Other: Neuro: Normal sensation of the tips of all digits of the right hand in the office today Diminished sensation of the tips of the digits of the median nerve distribution of the left hand in the office today No thenar or intrinsic wasting. Good APB muscle firing and good finger cross. Vascular: Capillary refill brisk. ROM: Patient can make a fist and extend all their digits. Skin: Well-approximated incision site noted of the volar right wrist. No further surrounding erythema of incision site No tenderness to palpation, no fluctuance, no evidence of deeper abscess formation General: No ecchymosis. Assessment & Plan Assessment & Plan (1) Bilateral carpal tunnel syndrome: Code(s): G56.03 - Carpal tunnel syndrome, bilateral upper limbs Category: Medical Plan 1. Left carpal tunnel syndrome Symptoms almost constant, daily, worse at night I educated the patient about the condition. I discussed both operative and nonoperative treatment options. The patient would like to proceed with surgery. The risks and benefits of operative treatment were discussed with the patient and the patient wishes to proceed with surgery. These risks include, but are not limited to, risk of damage to blood vessels, nerves, tendons, infection, recurrence, incomplete relief of preoperative symptoms, persistent pain, possible need for further surgery, and the risks associated with regional blocks and/or anesthesia. Plan is to take the patient to the operating room at some point in the next few weeks for the following procedures: 1. Left repeat carpal tunnel release under local All of the preoperative paperwork including the consent was discussed today. All of the patient's questions were answered in the clinic today. The patient understands that they will be in contact with our heel builder to discuss scheduling their procedure. Patient reports diabetes, last A1c 6.3 Denies blood thinners, asthma, heart issues, lung issues, kidney issues, or current smoking. 2. Status post right repeat carpal tunnel release DOS 01/26/2025 Patient appears to be recovering well postoperatively Patient is educated about the typical recovery course No further follow-up indicated, as patient appears to be recovering very well Patient is amenable to this plan 2 lb weight limit reinforced for a further one-week Patient is amenable to this plan Follow-up as needed Coding Level of Care Code Est Pt Level 4 (86787) Diagnoses Bilateral carpal tunnel syndrome G56.03
== END 2025-02-16 09:43 | disposition home or self-care (01) ==
LOC: HO.HOS 09:23
PROVIDERS: PCP Family Medicine
DX: G56.03 Carpal tunnel syndrome, bilateral upper limbs (principal)
CPT/HCPCS: 99214

== ENCOUNTER → 2025-02-16 09:22 | Outpatient (BNVA) | payer OTHER, SELFPAY | PROVIDERS: PCP Family Medicine | DX: G56.03 Carpal tunnel syndrome, bilateral upper limbs (principal) | CPT/HCPCS: 99212 ==

== ENCOUNTER 2025-03-02 12:20 | Day surgery (SDC) | payer OTHER, SELFPAY ==
[2025-03-02 13:10] VITALS: BMI 30.5
[2025-03-02 13:13] VITALS: BP 131/78; PULSE 78; RESP 18; TEMP 36.7; O2SAT 99
--- NOTE | 2025-03-02 13:51 | P.OP_ITS ---
Operative Note Operative Note Date of Service: 03/02/25 Narrative: Preop diagnosis: 1. 1. Recurrent left Carpal tunnel syndrome Postop diagnosis: same Procedure: 1. Repeat left Carpal tunnel release Surgeon: Kandis Aviles MD Clinical Nurse Leader: None Anesthesia: local block using 1% lidocaine with epinephrine Findings: Thickened transverse carpal ligament. EBL: Less than 5 mL Specimens: None Complications: None Disposition: Brought to recovery room in stable condition Plan: Follow-up for 10-14 days for wound check and suture removal Indications: The patient is 59 years old, with recurrent left carpal tunnel syndrome that has been unresponsive to nonoperative management. The risks and benefits of operative treatment including but not limited to risk of damage to blood vessels, nerves, tendons, infection, persistent pain, persistent symptoms, or possible need for additional surgery were discussed with the patient and the patient wishes to proceed with surgery. Procedure: Once consent was obtained a local block was performed using a combination of 1% lidocaine with epinephrine. The patient was then brought back to the operating suite and placed on the operative table in supine position. The left upper extremity was prepped and draped in a standard surgical fashion. Once assured that we had a good block, a 2.0 cm longitudinal incision was made centered over the carpal tunnel and extended proximally in a zigzag fashion. The incision was made through the skin to the subcutaneous tissues using a #15 blade. Dissection was made down to the level of the volar forearm fascia in the distal aspect of the wrist. I then made an incision in the volar forearm fascia visualizing the median nerve. While protecting the median nerve I then made a longitudinal incision in the scar tissue over the carpal tunnel 1st using a 15. Blade then using tenotomy and iris scissors. Once satisfied with our carpal tunnel release the wound was copiously irrigated with normal saline and hemostasis was obtained with a brief period of local pressure. The skin edges were reapproximated with some 5.0 nylon suture material and a sterile dressing was applied. The patient appears to have tolerated the procedure well and with no complications. All digits were well vascularized at the conclusion of the case.
--- NOTE | 2025-03-02 13:51 | MHC.SHP ---
Pre-Procedural Eval Section A - 24 Hr Update-Section A only Date of Service: 03/02/25 The patient is an INPATIENT: No Changes since office visit: No Cold of Flu in the past 2 weeks, No New Medical Problems, No Changes in Medication and No Patient answered all questions The patient has been examined within 24 hours of the surgical procedure. The History & Physical has been completed within 30 days and I have reviewed it.: Yes Section B - Complete if H&P > 30 days Chief Complaint: Carpal tunnel syndrome, left upper limb Allergies: Allergies Allergy/AdvReac Type Severity Reaction Status Date / Time Seasonal Allergies Allergy Intermediate Itchy Eyes Verified 03/02/25 13:14 Plan Diagnosis/Plan: Unchanged I have reviewed the history and physical and performed a pertinent physical examination on my patient. No changes have occurred unless specified. Time Spent With Patient Time: Total time managing care of this patient today ____ minutes.
[2025-03-02 15:27] VITALS: BP 120/70; PULSE 74; RESP 16; O2SAT 95
== END 2025-03-02 15:54 ==
PROVIDERS: PCP Family Medicine; Visit Provider Orthopaedic Surgery
PROC: (CPT 64721; principal; 2025-03-02 15:10)
DX: G56.02 Carpal tunnel syndrome, left upper limb (principal); R20.0 Anesthesia of skin; R20.2 Paresthesia of skin; K75.81 Nonalcoholic steatohepatitis (NASH); E11.9 Type 2 diabetes mellitus without complications; Z79.4 Long term (current) use of insulin; Z98.890 Other specified postprocedural states
CPT/HCPCS: 64721; J0165; J2003

== ENCOUNTER → 2025-03-02 12:20 | Outpatient (BNV) | payer OTHER, SELFPAY | PROVIDERS: PCP Family Medicine; Visit Provider Orthopaedic Surgery | DX: G56.02 Carpal tunnel syndrome, left upper limb (principal) | CPT/HCPCS: 64721 ==

== ENCOUNTER 2025-03-06 08:18 | Outpatient (REF) | payer OTHER, SELFPAY ==
--- NOTE | ~2025-03-06 | US_ITS ---
EXAMINATION: US COMPLETE ABDOMEN WITH LIVER ELASTOGRAPHY CLINICAL INFORMATION: R79.89 - Other specified abnormal findings of blood COMPARISON: None available. TECHNIQUE: Real-time imaging of the abdominal viscera. Noninvasive ultrasound liver fibrosis assessment is performed using [employer] ElastPQ point quantification shear wave elastography (pSWE) with a C5-2 MHz transducer. Multiple elastography samples are obtained. FINDINGS: PANCREAS: The visualized pancreatic head and body are normal in appearance. The remainder of the pancreas is obscured from visualization by the overlying bowel gas. ABDOMINAL AORTA: No aortic aneurysm is seen. INFERIOR VENA CAVA: Visualized portions are normal. LIVER: The liver contour demonstrates a scalloped margin. It demonstrates a coarse echotexture with patchy areas of hyperechogenicity. The right lobe measures 16.9 cm in length. The left lobe measures 2.6 cm in length. Shear wave liver elastography median stiffness is 1.1 m/s (reference: normal median stiffness is 1.3 m/s or less). IQR/median stiffness to assess sampling precision is 0.2 (reference: good quality data set is IQR/median stiffness of 0.3 or less). GALLBLADDER: The gallbladder is physiologically distended without evidence of stones, sludge, polyps, wall thickening or pericholecystic fluid. COMMON BILE DUCT: Normal in caliber measuring 0.4 cm in diameter. RIGHT KIDNEY: There is pelvicaliectasis. No renal calculi or focal parenchymal lesions. The kidney measures 11 cm in maximum dimension. LEFT KIDNEY: There is pelvicaliectasis. No renal calculi or focal parenchymal lesions. The kidney measures 12 cm in maximum dimension. SPLEEN: Unremarkable. The spleen measures 12 cm in maximum dimension. FREE FLUID: None seen. US/US abdomen comp w elastography IMPRESSION: 1. Appearance of the liver is suggestive of fatty changes versus underlying hepatocellular disease 2. Liver elastography: Measurements are consistent with a high probability of normal liver stiffness. Bilateral renal pelvicaliectasis/mild hydronephrosis REFERENCE: Society of Radiologists in Ultrasound Liver Stiffness Thresholds (2019): LIVER STIFFNESS THRESHOLDS: *Liver Stiffness equal or less than 1.3 m/s: High probability of being normal. *Liver Stiffness less than 1.7 m/s: In the absence of other known clinical signs, rules out compensated advanced chronic liver disease. *Liver Stiffness 1.7-2.1 m/s: Suggestive of compensated advanced chronic liver disease but need further test for confirmation. *Liver Stiffness over 2.1 m/s: Rules in compensated advanced chronic liver disease. *Liver Stiffness over 2.4 m/s: Suggestive of clinically significant portal hypertension. QUALITY OF DATA SET: *IQR/Median value equal or less than 0.15 implies a quality data set. *IQR/Median value over 0.15 implies a poor quality data set. SIGNIFICANT CHANGE FROM PRIOR EXAM: Significant change if liver stiffness measurement is 10% or greater from prior exam. OTHER CONSIDERATIONS: The stage of liver fibrosis may be overestimated in the setting of acute hepatitis, liver inflammation, elevated liver function tests, hepatic vascular congestion, obstructive cholestasis, non-fasting state, and infiltrative diseases such as amyloidosis and lymphoma. In some patients with NAFLD, the liver stiffness thresholds for compensated advanced chronic liver disease may be lower. In causes other than viral hepatitis and NAFLD, liver stiffness thresholds are not well established. Electronically signed by: Dave Hilton MD 03/06/2025 11:55 AM EDT
== END 2025-03-06 08:19 | disposition home or self-care (01) ==
LOC: HO.US 08:18
PROVIDERS: PCP Family Medicine; Visit Provider Physician Assistant
DX: R79.89 Other specified abnormal findings of blood chemistry (principal); F19.11 Other psychoactive substance abuse, in remission; E11.65 Type 2 diabetes mellitus with hyperglycemia; Z79.4 Long term (current) use of insulin
CPT/HCPCS: 76700; 76981

== ENCOUNTER → 2025-03-06 08:20 | Outpatient (BNV) | payer OTHER, SELFPAY | PROVIDERS: PCP Family Medicine; Visit Provider Radiology Diagnostic Radiology | DX: R79.89 Other specified abnormal findings of blood chemistry (principal) | CPT/HCPCS: 76700 ==

== ENCOUNTER 2025-03-09 13:41 | Outpatient (AMB) | payer OTHER, SELFPAY ==
--- NOTE | 2025-03-09 13:49 | MHC.OFFVIS ---
Vital Signs 03/09/25 13:51 Height 5 ft 3 in Weight 172 lb BMI 30.5 Intake Visit Reasons: PO-Lt Repeat CTR 03/02/25 Intake Note: Linda is a 59 year old female who presents today post operatively after undergoing a repeat left carpal tunnel release, performed by Dr. Aviles on 03/02/25. Patient reports redness around incision, denies drainage. Allergies Seasonal Allergies Allergy (Intermediate, Verified 03/09/25 13:51) Itchy Eyes HPI HPI PO-Lt Repeat CTR 03/02/25: Details: 59-year-old female presents to the office today for a postop visit repeat left carpal tunnel release on 03/02/[address] Aviles. She is concerned she is developing infection in the left wrist. She had a previous repeat right carpal tunnel release on the right with Dr. Aviles in January and she developed some cellulitis and was placed on antibiotics. She is concerned the same is happening to the left. The patient does admit to doing too much with the left hand including carrying a gal of milk. She has also washing the area daily. [facility] Medical History (Updated 03/09/25 @ 15:48 by Kylee Vyas PA-C) Insulin dependent diabetes mellitus LARIOS (nonalcoholic steatohepatitis) Surgical History History of bilateral carpal tunnel release History of knee surgery History of loop electrical excision procedure (LEEP) H/O repair of left rotator cuff History of sinus surgery History of facial surgery Family History Father Skin cancer Mental health disorder Substance abuse Mother Ovarian cancer Diabetes Mental health disorder Maternal Aunt Breast cancer Maternal Uncle Lung cancer Family/Other Mental health disorder Family/Other Substance abuse Social History (Updated 01/20/25 @ 10:59 by Radha Carrasquillo MA) Household Members: Family Household Members Other:: roommate Both parents involved: No Caregiver staying overnight: No Housing: House (mobile home) Housing Other:: mobile home Are you a primary special needs child caregiver to a significant other at home: No Do you presently have visiting nurse or other home services: No 75 years or older and lives alone: No Alcohol intake: current Alcohol intake frequency: a few times a month Patient Tobacco Use Status: Never used Tobacco e-Cigarette/Vaping Use: Never Used Second Hand Smoke Exposure: No Substance Use Type: Crack/Cocaine service: No Current occupational status: disabled Current occupational exposures/hazards: No Cognitive needs: No Hearing needs: No Vision needs: Yes Review of Systems Const All systems reviewed & are unremarkable except as noted in HPI and below Physical Exam Vital Signs: BMI result Body Mass Index 30.5 Extrem Other: Left wrist sutures are intact there is some erythema around only the suture area no erythema beyond the incision line. No swelling. No tenderness to palpation. No drainage. Assessment & Plan Assessment & Plan (1) Carpal tunnel syndrome on left: Code(s): G56.02 - Carpal tunnel syndrome, left upper limb Category: Medical Plan: I placed the patient on a prescription of Augmentin to air on the side of caution given she had cellulitis on the right and she is showing signs of irritation on the left. I do feel this is more so because she is doing too much and stressed the importance of no lifting more than a cell phone with the left arm. Keeping the incision clean dry and intact. Patient will return for her routine postop appointment as planned. Medications: New amoxicillin-pot clavulanate 875-125 mg 1 tab PO BID 20 tabs 0RF 10 days Coding Level of Care Code Global (85000) Diagnoses Carpal tunnel syndrome on left G56.02
[2025-03-09 13:51] VITALS: BMI 30.5
== END 2025-03-09 14:17 | disposition home or self-care (01) ==
LOC: HO.HOS 13:42
PROVIDERS: PCP Family Medicine; Visit Provider Physician Assistant
DX: G56.02 Carpal tunnel syndrome, left upper limb (principal)
CPT/HCPCS: 99024

== ENCOUNTER → 2025-03-09 13:41 | Outpatient (BNVA) | payer OTHER, SELFPAY | PROVIDERS: PCP Family Medicine; Visit Provider Physician Assistant | DX: G56.02 Carpal tunnel syndrome, left upper limb (principal) | CPT/HCPCS: 99212 ==

== ENCOUNTER 2025-03-17 10:07 | Outpatient (AMB) | payer OTHER, SELFPAY ==
--- NOTE | 2025-03-17 10:23 | MHC.OFFVIS ---
Vital Signs 03/17/25 10:25 Height 5 ft 3 in Weight 172 lb BMI 30.5 Intake Visit Reasons: PO-Lt Repeat CTR 03/02/25 Intake Note: Linda is a 59 year old ambidextrous female who presents today post operatively and for a wound check status post left repeat carpal tunnel release, DOS: 03/02/[address] Aviles. On 03/09/25 patient was seen in office with Kylee Vyas PA-C where she was prescribed Augmentin for concern of possible infection. States her symptoms have resolved and is doing very well. States she was over using her hand and look red which is why she called with concerns of infections. Allergies Seasonal Allergies Allergy (Intermediate, Verified 03/17/25 10:28) Itchy Eyes HPI HPI PO-Lt Repeat CTR 03/02/25: Details: Linda is a 59 year old right hand dominant Diabetic woman who returns S/P left repeat carpal tunnel release, DOS: 03/02/25. She says she is doing better. Her sensation has improved & is now normal, and she is happy with the results of her surgery. She has been taking her PO Augmentin as instructed and denies any evidence of infection. She says she had been overusing her hand and that's why she developed the redness about her incision. She has reduced her activities and says her wrist is doing much better now. [facility] Medical History (Updated 03/09/25 @ 15:48 by Kylee Vyas PA-C) Insulin dependent diabetes mellitus LARIOS (nonalcoholic steatohepatitis) Surgical History History of bilateral carpal tunnel release History of knee surgery History of loop electrical excision procedure (LEEP) H/O repair of left rotator cuff History of sinus surgery History of facial surgery Family History Father Skin cancer Mental health disorder Substance abuse Mother Ovarian cancer Diabetes Mental health disorder Maternal Aunt Breast cancer Maternal Uncle Lung cancer Family/Other Mental health disorder Family/Other Substance abuse Social History Household Members: Family Household Members Other:: roommate Both parents involved: No Caregiver staying overnight: No Housing: House (mobile home) Housing Other:: mobile home Are you a primary child day care teacher to a significant other at home: No Do you presently have visiting nurse or other home services: No 75 years or older and lives alone: No Alcohol intake: current Alcohol intake frequency: a few times a month Patient Tobacco Use Status: Never used Tobacco e-Cigarette/Vaping Use: Never Used Second Hand Smoke Exposure: No Substance Use Type: Crack/Cocaine service: No Current occupational status: disabled Current occupational exposures/hazards: No Cognitive needs: No Hearing needs: No Vision needs: Yes Review of Systems Const All systems reviewed & are unremarkable except as noted in HPI and below Physical Exam Vital Signs: BMI result Body Mass Index 30.5 Const General: no acute distress and alert Orientation/consciousness: patient oriented x3 Neuro General: patient oriented x3 Extrem Other: The patient was alert oriented and in no acute distress The incision is healing well with no erythema drainage or evidence of infection. Sutures removed and Steri-Strips applied She can make a fist and extend all her digits Sensation is normal in the median nerve distribution Cap refill is brisk Nerve Conduction Study: IMPRESSION: 1. This is an abnormal study. 2. There is electrodiagnostic evidence for bilateral moderate-severe median neuropathy at the wrist, consistent with carpal tunnel syndrome. 3. There is no electrodiagnostic evidence for ulnar neuropathy, brachial plexopathy, or cervical radiculopathy. Clinical comment: No previous EMG available for comparison. Hollie Benitez MD, [place] 11/14/24 Psych Appearance: grossly normal Affect: normal affect Attitude: cooperative Assessment & Plan Assessment & Plan (1) Bilateral carpal tunnel syndrome: Code(s): G56.03 - Carpal tunnel syndrome, bilateral upper limbs Category: Medical Plan Assessment & Plan 1. Left Repeat carpal tunnel syndrome, S/P repeat release DOS: 03/02/25 Pre-operative symptoms almost constant, daily, worse at night The patient appears to be doing well post-operatively I educated her about the post-operative course I explained the signs and symptoms of infection, should they occur I discussed activity modifications, she is to lift nothing heavier than a cellphone for the next 2 weeks. They should also avoid any heavy impact activities, falls, or sports activities for the next 2 weeks She will perform gentle ROM exercises at home She should avoid any underwater activities for the next 5 days She should gently massage about the incision site to reduce the risk of hypersensitivity She can follow up prn 2. Right repeat carpal tunnel syndrome, S/P repeat release DOS 01/26/25 Doing well, no complaints Scribed for Kandis Aviles MD by River Kilgore, medical assistant float, on 03/17/25 at 10:35 AM, EST. Coding Level of Care Code Global (21256) Diagnoses Bilateral carpal tunnel syndrome G56.03
[2025-03-17 10:25] VITALS: BMI 30.5
== END 2025-03-17 10:54 | disposition home or self-care (01) ==
LOC: HO.HOS 10:08
PROVIDERS: PCP Family Medicine; Visit Provider Orthopaedic Surgery
DX: G56.03 Carpal tunnel syndrome, bilateral upper limbs (principal)
CPT/HCPCS: 99024

== ENCOUNTER → 2025-03-17 10:07 | Outpatient (BNVA) | payer OTHER, SELFPAY | PROVIDERS: PCP Family Medicine; Visit Provider Orthopaedic Surgery | DX: Z98.890 Other specified postprocedural states (principal); G56.03 Carpal tunnel syndrome, bilateral upper limbs | CPT/HCPCS: 99212 ==

== ENCOUNTER 2025-04-02 09:03 | Outpatient (REF) | payer OTHER, SELFPAY ==
[2025-04-02 11:59] LABS: Alanine Aminotransferase 46 U/L (0-31); Albumin Level 4.4 g/dL (3.5-5.0); Alkaline Phosphatase 143 U/L (39-117); Anion Gap 11 (12-20); Aspartate Amino Transferase 60 U/L (5-31); Blood Urea Nitrogen 18 mg/dL (9-16); Calcium 9.3 mg/dL (8.4-10.2); Carbon Dioxide 23 mmol/L (22-29); Chloride 107 mmol/L (96-108); Estimated Glomerular Filt Rate > 60; Potassium 3.4 mmol/L (3.3-5.1); Sodium 138 mmol/L (135-145); Total Protein 7.6 g/dL (6.5-8.0)
[2025-04-02 12:14] LABS: Hemoglobin A1C 136.9614 umol/L; Total Hemoglobin (HGBA1C) 3766.3164 umol/L
[2025-04-02 12:39] LABS: Microalbum/Creatinine Ratio Ur 8.3 ug/mg cr (<30)
== END 2025-04-02 09:04 | disposition home or self-care (01) ==
LOC: HO.WFDLDS 09:03
PROVIDERS: Visit Provider Physician Assistant
DX: E11.65 Type 2 diabetes mellitus with hyperglycemia (principal); Z79.4 Long term (current) use of insulin
CPT/HCPCS: 36415; 80053; 82043; 82570; 83036

== ENCOUNTER 2025-04-03 09:32 | Outpatient (AMB) | payer OTHER, SELFPAY ==
[2025-04-03 09:34] VITALS: BP 116/68; PULSE 78; O2SAT 99; BMI 30.6
--- NOTE | 2025-04-03 09:34 | MHC.OFFVIS ---
Vital Signs 04/03/25 09:34 Height 5 ft 3 in Weight 172 lb 13.478 oz BMI 30.6 BP 116/68 Blood Pressure Location Lt brachial Position Sitting Pulse 78 Pulse Source Pulse Oximeter Pulse Oximetry (%) 99 Oxygen Delivery Method Room Air Intake Visit Reasons: type 2 dm Intake Note: Patient present today for Type 2 Diabetes Mellitus Last Diabetic eye exam: Last exam was on January 2025. Last Podiatry Visit: Last seen was around January 2025 and has upcoming appt in April. Random Glucose: 117 mg/dl HgA1C: 5.8% 01/20/25 Retail Greeting Card Merchandiser Required: No Accompanied by: Self / Same As Patient Allergies Seasonal Allergies Allergy (Intermediate, Verified 04/03/25 09:42) Itchy Eyes Medication List - Last Reconciled 04/03/25 by Bree Asher PA-C amoxicillin-pot clavulanate 875-125 mg 1 tab PO BID 10 days blood sugar diagnostic (FreeStyle Lite Strips) DX: E11.9, test blood sugar 3 times a day, 90 days blood-glucose meter (FreeStyle Lite Meter kit) DX: E11.9, test blood sugar 3 times a day, duration 999 days blood-glucose sensor (FreeStyle Miguelina 3 Plus Sensor device) Use daily As directed to monitor glucose blood-glucose,real estate internship,cont (FreeStyle Miguelina 3 [place]) Use daily As directed to monitor blood glucose brexpiprazole (Rexulti) 4 mg PO DAILY calcium polycarbophil (FiberCon) 625 mg PO DAILY 30 days cyanocobalamin (vitamin B-12) 1,000 mcg PO DAILY 90 days diclofenac sodium 1% (Arthritis Pain (diclofenac)) 2 grams topical QID PRN 3 days erenumab-aooe (Aimovig Autoinjector) mg subcut pkmqyinsehz-nnhqqzwun-hvibomvh 100-62.5-25 mcg (Trelegy Ellipta) 1 inh inhalation DAILY gabapentin 100 mg PO TID glucose (Dex4 Glucose) 16 grams (4 x 4 gram) PO Q15M PRN ipratropium-albuterol 0.5 mg-3 mg(2.5 mg base)/3 mL 3 mL inhalation Q6-8H PRN ketoconazole 2% 1 appl topical 2XW 14 days Lactobacillus rhamnosus GG 1 cap PO DAILY 90 days lancets (FreeStyle Lancets) As directed Lantus Solostar U-100 Insulin (insulin glargine) 10 units (0.1 mL) subcut DAILY 30 days NS lidocaine 5% 1 patch topical DAILY 30 days loratadine 10 mg PO DAILY 90 days meloxicam 15 mg PO DAILY 30 days miscellaneous medical supply As directed, 999 days miscellaneous medical supply 1 pair diabetic shoes, Daily As directed, 999 days miscellaneous medical supply diabetic shoes as directed; omeprazole 20 mg PO DAILY pantoprazole 40 mg PO DAILY 30 days pen needle, diabetic (BD Ultra-Fine Mini Pen Needle) 1 ea miscellaneous TID-QID 90 days rotigotine (Neupro) 1 patch transdermal DAILY 30 days [theraworx 1 appl topical BID PRN 30 days] tirzepatide (Mounjaro) 15 mg (0.5 mL) subcut QWEEK topiramate 50 mg PO BID 1 month walker (Ultra-Light Rollator misc) 3 wheel, collapsible, with?seat?and?brakes. Daily?As directed, 999 days HPI HPI type 2 dm: Details: Patient is a 59-year-old female with a significant past medical history of anxiety, depression, housing/financial insecurity, diabetes, B12 deficiency, obesity, IBS, migraines presenting today for a follow up regarding dm. Endo: She was diagnosed with diabetes around the age of 52. Her last A1c was 5.5. She is currently on Lantus 25 units, Mounjaro 12.5 mg weekly. She has no side effects with this current regimen. She would like to increase the Mounjaro because she wants to see more weight loss. Previous med- Trulicity higher doses make her feel a little sick and states that they did discuss switching her to Wegovy. She states her insurance denied the Wegovy and upon further review of her previous medications she states that she did not tolerate the Ozempic. She has tried metformin in the past but it caused GI distress. Glipizide caused hypoglycemia. CGM- has had issues with insurance covering this. She states that she has not had any low blood sugar. She is trying to cut back on the juice. States that she has a family history of diabetes but her mother she thinks it is a type 2 in her maternal grandmother was a type 1 diabetic. CV: Blood pressure today in the office is 116/68. She is not on a statin. GI: recent labs show elevated lfts and ferritin. She is following with [facility] [place] [facility] GI Psych: Currently struggling with anxiety, depression, bipolar disorder. States that she is on Rexulti and buspar (recently added she thinks) and topamax. it does seem to be a little helpful for her and she is following closely with Behavioral Health. She states that she is finally doing better. [facility] Medical History (Updated 03/09/25 @ 15:48 by Kylee Vyas PA-C) Insulin dependent diabetes mellitus LARIOS (nonalcoholic steatohepatitis) Surgical History History of bilateral carpal tunnel release History of knee surgery History of loop electrical excision procedure (LEEP) H/O repair of left rotator cuff History of sinus surgery History of facial surgery Family History Father Skin cancer Mental health disorder Substance abuse Mother Ovarian cancer Diabetes Mental health disorder Maternal Aunt Breast cancer Maternal Uncle Lung cancer Family/Other Mental health disorder Family/Other Substance abuse Social History Household Members: Family Household Members Other:: roommate Both parents involved: No Caregiver staying overnight: No Housing: House (mobile home) Housing Other:: mobile home Are you a primary home care and home health aides teacher to a significant other at home: No Do you presently have visiting nurse or other home services: No 75 years or older and lives alone: No Alcohol intake: current Alcohol intake frequency: a few times a month Patient Tobacco Use Status: Never used Tobacco e-Cigarette/Vaping Use: Never Used Second Hand Smoke Exposure: No Substance Use Type: Crack/Cocaine service: No Current occupational status: disabled Current occupational exposures/hazards: No Cognitive needs: No Hearing needs: No Vision needs: Yes Physical Exam Vital Signs: Last Vital Signs Pulse 78 04/03/25 09:34 BP 116/68 04/03/25 09:34 Pulse Ox 99 04/03/25 09:34 Oxygen Delivery Method Room Air 04/03/25 09:34 BMI result Body Mass Index 30.6 Const Orientation/consciousness: patient oriented x3 HEENT Ears: hearing grossly normal bilaterally Neck Thyroid: Thyroid normal Lymphatic: no lymphadenopathy noted Resp Auscultation: clear to auscultation bilaterally Cardio Rate: regular rate Rhythm: regular rhythm Heart sounds: S1 normal heart sound present and S2 normal heart sound present Skin General skin exam: no rashes or lesions noted Neuro General: patient oriented x3, gait normal and no focal motor deficits Results Reviewed Results Reviewed: Laboratory Last Values Glucose (Clinic) 117 mg/dL (60-115) H 04/03/25 09:46 Laboratory Tests 10/23/24 04/02/25 08:59 09:05 Sodium 138 Potassium 3.4 Chloride 107 Carbon Dioxide 23 BUN 18 H C-Peptide 3.25 AST 60 H ALT 46 H Alkaline Phosphatase 143 H Triglycerides 146 Cholesterol 168 LDL Cholesterol, Calc 105 H HDL Cholesterol 34 L Islet Cell Ab Screen NEGATIVE MARLEE Antibody 26 H Assessment & Plan Assessment & Plan (1) Uncontrolled type 2 diabetes mellitus with hyperglycemia, with long-term current use of insulin: Code(s): E11.65 - Type 2 diabetes mellitus with hyperglycemia; Z79.4 - FPC (current) use of insulin Category: Medical Plan: increase mounjaro to 15 mg reduce lantus to 10 units daily 2 sensors provided today in the office today reviewed labs with pt lfts are stable - following with GI Medications: New tirzepatide (Mounjaro) 15 mg (0.5 mL) subcut QWEEK 2 mL 5RF Changed From Lantus Solostar U-100 Insulin (insulin glargine) WAQAS. No substitutions. 25 units (0.25 mL) subcut DAILY 30 days 15 mL 3RF NS E11.65 - Type 2 diabetes mellitus with hyperglycemia, Z79.4 - rn long term care (current) use of insulin To Lantus Solostar U-100 Insulin (insulin glargine) WAQAS. No substitutions. 10 units (0.1 mL) subcut DAILY 3 mL 3RF 30 days NS E11.65 - Type 2 diabetes mellitus with hyperglycemia, Z79.4 - FPC (current) use of insulin Refilled blood sugar diagnostic (FreeStyle Lite Strips) DX: E11.9, test blood sugar 3 times a day, 90 days 300 ea 4RF E11.65 - Type 2 diabetes mellitus with hyperglycemia, E11.9 - Type 2 diabetes mellitus without complications lancets (FreeStyle Lancets) As directed 300 ea 4RF DX: E11.9, test blood sugar 3 times a day, 90 day E11.65 - Type 2 diabetes mellitus with hyperglycemia, E11.9 - Type 2 diabetes mellitus without complications blood-glucose sensor (FreeStyle Miguelina 3 Plus Sensor device) Use daily As directed to monitor glucose 2 ea 11RF E08.29 - Diabetes mellitus due to underlying condition with other diabetic kidney complication, R80.9 - Proteinuria, unspecified, Z79.4 - rn long term care (current) use of insulin Discontinued tirzepatide (Mounjaro) Discontinued Reason: Doctor's Order 12.5 mg (0.5 mL) subcut QWEEK 2 mL 4RF Coding Level of Care Code Est Pt Level 4 (76471) Complex EM visit Add On G2211 Diagnoses Uncontrolled type 2 diabetes mellitus with hyperglycemia, with long-term current use of insulin E11.65; Z79.4
[2025-04-03 09:50] LABS: Glucose, Whole Blood 117 mg/dL (60-115)
== END 2025-04-03 10:07 | disposition home or self-care (01) ==
LOC: HO.ENCR 09:33
PROVIDERS: PCP Family Medicine; Visit Provider Physician Assistant
DX: E11.65 Type 2 diabetes mellitus with hyperglycemia (principal); Z79.4 Long term (current) use of insulin

== ENCOUNTER → 2025-04-03 09:32 | Outpatient (BNVA) | payer OTHER, SELFPAY | PROVIDERS: PCP Family Medicine; Visit Provider Physician Assistant | DX: E11.65 Type 2 diabetes mellitus with hyperglycemia (principal); E53.8 Deficiency of other specified B group vitamins; E66.9 Obesity, unspecified; K58.9 Irritable bowel syndrome, unspecified; Z79.4 Long term (current) use of insulin; Z79.899 Other long term (current) drug therapy; Z68.30 Body mass index [BMI] 30.0-30.9, adult | CPT/HCPCS: 82947; 99212 ==

== ENCOUNTER 2025-04-23 08:18 | Outpatient (AMB) | payer OTHER, SELFPAY ==
--- NOTE | 2025-04-23 08:27 | MHC.PC.OV ---
Vital Signs 04/23/25 08:36 Height 5 ft 3 in Weight 174 lb BMI 30.8 BP 115/66 Blood Pressure Location Lt brachial Position Sitting Respiration 12 Pulse 89 Pulse Source Pulse Oximeter Temp 96.8 F Temp Source Temporal Artery Scan Pulse Oximetry (%) 98 Oxygen Delivery Method Room Air Intake Visit Reasons: f/u diabetes, chronic conditions Intake Note: Follow up on dm. Grinding Supervisor Required: No Allergies Seasonal Allergies Allergy (Intermediate, Verified 04/23/25 08:28) Itchy Eyes Medication List - Last Reconciled 04/23/25 by Rashaun Caballero MD amoxicillin-pot clavulanate 875-125 mg 1 tab PO BID 10 days blood sugar diagnostic (FreeStyle Lite Strips) DX: E11.9, test blood sugar 3 times a day, 90 days blood-glucose meter (FreeStyle Lite Meter kit) DX: E11.9, test blood sugar 3 times a day, duration 999 days blood-glucose sensor (FreeStyle Miguelina 3 Plus Sensor device) Use daily As directed to monitor glucose blood-glucose,wine master,cont (FreeStyle Miguelina 3 [place]) Use daily As directed to monitor blood glucose brexpiprazole (Rexulti) 4 mg PO DAILY calcium polycarbophil (FiberCon) 625 mg PO DAILY 30 days cyanocobalamin (vitamin B-12) 1,000 mcg PO DAILY 90 days diclofenac sodium 1% (Arthritis Pain (diclofenac)) 2 grams topical QID PRN 3 days erenumab-aooe (Aimovig Autoinjector) mg subcut zklbfslpirm-ezsjlrjlj-rjfytcoe 100-62.5-25 mcg (Trelegy Ellipta) 1 inh inhalation DAILY gabapentin 100 mg PO TID glucose (Dex4 Glucose) 16 grams (4 x 4 gram) PO Q15M PRN ipratropium-albuterol 0.5 mg-3 mg(2.5 mg base)/3 mL 3 mL inhalation Q6-8H PRN ketoconazole 2% 1 appl topical 2XW 14 days Lactobacillus rhamnosus GG 1 cap PO DAILY 90 days lancets (FreeStyle Lancets) As directed Lantus Solostar U-100 Insulin (insulin glargine) 14 units (0.14 mL) subcut DAILY 30 days NS lidocaine 5% 1 patch topical DAILY 30 days loratadine 10 mg PO DAILY 90 days magnesium 400 mg (2 x 200 mg) PO BEDTIME 30 days meloxicam 15 mg PO DAILY 30 days miscellaneous medical supply As directed, 999 days miscellaneous medical supply 1 pair diabetic shoes, Daily As directed, 999 days miscellaneous medical supply diabetic shoes as directed; omeprazole 20 mg PO DAILY pantoprazole 40 mg PO DAILY 30 days pen needle, diabetic (BD Ultra-Fine Mini Pen Needle) 1 ea miscellaneous TID-QID 90 days rotigotine (Neupro) 1 patch transdermal DAILY 30 days [theraworx 1 appl topical BID PRN 30 days] tirzepatide (Mounjaro) 15 mg (0.5 mL) subcut QWEEK topiramate 50 mg PO BID 1 month walker (Ultra-Light Rollator misc) 3 wheel, collapsible, with?seat?and?brakes. Daily?As directed, 999 days Tobacco use date assessed: 04/23/25 Dental Screening Dental Screen Date: 04/23/25 Did you have a dental visit in the last 12 months?: Yes Did you have a dental problem in the last 6 months where you did not have access to dental care?: No Was dental information given to patient?: Patient has dentist HPI f/u diabetes, chronic conditions HPI Details 59 y/o female presents to f/u diabetes, chronic conditions. Patient's mounjora was increased and Lantus decreased at her last visit with endocrinology. Pt notes blood sugars had increased a bit and notes numbers in the 140s. Reports complaints of leg cramps. Also reports some plantar fasciitis. [facility] Medical History (Updated 04/23/25 @ 09:19 by Steve Quezada) Insulin dependent diabetes mellitus LARIOS (nonalcoholic steatohepatitis) Surgical History History of bilateral carpal tunnel release History of knee surgery History of loop electrical excision procedure (LEEP) H/O repair of left rotator cuff History of sinus surgery History of facial surgery Family History Father Skin cancer Mental health disorder Substance abuse Mother Ovarian cancer Diabetes Mental health disorder Maternal Aunt Breast cancer Maternal Uncle Lung cancer Family/Other Mental health disorder Family/Other Substance abuse Social History Household Members: Family Household Members Other:: roommate Both parents involved: No Caregiver staying overnight: No Housing: House (mobile home) Housing Other:: mobile home Are you a primary career guidance counselor to a significant other at home: No Do you presently have visiting nurse or other home services: No 75 years or older and lives alone: No Alcohol intake: current Alcohol intake frequency: a few times a month Patient Tobacco Use Status: Never used Tobacco e-Cigarette/Vaping Use: Never Used Second Hand Smoke Exposure: No Substance Use Type: Crack/Cocaine service: No Current occupational status: disabled Current occupational exposures/hazards: No Cognitive needs: No Hearing needs: No Vision needs: Yes Questionnaire PHQ-9 Over the last 2 weeks, how often have you been bothered by any of the following problems? 1. Little interest or pleasure in doing things: not at all 2. Feeling down, depressed, or hopeless: not at all 3. Trouble falling or staying asleep, or sleeping too much: not at all 4. Feeling tired or having little energy: not at all 5. Poor appetite or overeating: not at all 6. Feeling bad about yourself - or that you are a failure or have let yourself or your family down: not at all 7. Trouble concentrating on things, such as reading the newspaper or watching television: not at all 8. Moving or speaking so slowly that other people could have noticed. Or the opposite - being so fidgety or restless that you have been moving around a lot more than usual: not at all 9. Thoughts that you would be better off or of hurting yourself in some way: not at all Total score: 0 Depression Screening Interpretation: Negative Depression Screening Done: Yes 65758 - PHQ-9 Billing: Yes Source: Developed by Drs. Bradley King, Lian Nash, Boyd Hess and colleagues, with an educational gabriela from [employer]. Thrive Questionnaire Date Thrive assessed: 04/23/25 I am a: Patient What is your living situation today?: I have a place to live, but I am worried about losing it in the future Within the past 12 months, did the food you bought not last and you didn't have the money to get more?: Often true Within the past 12 months, did you worry whether your food would run out before you got money to buy more?: Often true Do you have trouble paying for medicines?: No Do you have trouble getting transportation to medical appointments?: No Do you have trouble paying your heating and electricity bill?: Yes Do you have trouble taking care of your child, family member or friend?: No Do you have trouble with day-to-day activities such as bathing, preparing meals, shopping, managing finances, etc.?: Yes Are you currently unemployed and looking for a job?: No Are you interested in more education?: Yes THRIVE Score: 4 MARLEE-7 AMB Questionnaire MARLEE-7 Date MRALEE - 7 assessed: 04/23/25 Feeling nervous, anxious, or on edge: 0 = Not at all Not being able to stop or control worryin = Not at all Worrying too much about different things: 0 = Not at all Trouble relaxin = Not at all Being so restless that it is hard to sit still: 0 = Not at all Becoming easily annoyed or irritable: 0 = Not at all Feeling afraid as if something awful might happen: 0 = Not at all Total MRALEE-7 score (0-4 normal; 5-9 mild; 10-14 moderate; 15-21 severe): 0 Source: Developed by Drs. Bradley King, Lian Nash, Boyd Hess and colleagues, with an educational gabriela from [employer]. MARLEE-7 Assessment Billing MARLEE-7 Assessment Tool: MARLEE-7 Assessment 55255 Physical exam (Primary Care) Vital Signs: Last Vital Signs Temp 96.8 F 04/23/25 08:36 Pulse 89 04/23/25 08:36 Resp 12 04/23/25 08:36 BP 115/66 04/23/25 08:36 Pulse Ox 98 04/23/25 08:36 Oxygen Delivery Method Room Air 04/23/25 08:36 BMI result Body Mass Index 30.8 Tobacco/Smoking Status: Tobacco use Status Tobacco use date assessed 04/23/25 04/23/25 08:28 Patient Tobacco Use Status Never used Tobacco 04/23/25 08:28 e-Cigarette/Vaping Use Never Used 04/23/25 08:28 PHQ-9: PHQ-9 Score PHQ-9: Total score 0 04/23/25 08:38 Depression Screening Interpretation: Negative Thrive Assessment: Date of Thrive Assessment Date Thrive assessed 04/23/25 04/23/25 08:28 Coding Level of Care Code Tele Est Pt Level 4 (40763) Diagnoses Uncontrolled type 2 diabetes mellitus with hyperglycemia, with long-term current use of insulin E11.65; Z79.4 Leg cramps R25.2 Plantar fasciitis M72.2 Fibromyalgia M79.7 Additional Codes MARLEE-7 Assessment Billing - MARLEE-7 Assessment Tool: MARLEE-7 Assessment 87884 ([id number]) PHQ-9 - 08013 - PHQ-9 Billing: Yes ([id number]) Assessment & Plan Assessment & Plan (1) Uncontrolled type 2 diabetes mellitus with hyperglycemia, with long-term current use of insulin: Code(s): E11.65 - Type 2 diabetes mellitus with hyperglycemia; Z79.4 - technician terminal and repeater (current) use of insulin Category: Medical Plan: Patient's majora was increased and Lantus decreased at her last visit with endocrinology. Since then she notes that her blood sugars have been much higher in the morning - typically 140s. Will have her bring Lantus back up from 10 units daily to 14 units daily. Discussed with patient that it is little too soon to increase her Mounjaro again but that her maintenance mechanic helper will likely increase Mounjaro and continue decreasing land is at her next visit. Continue working on diabetic diet (2) Leg cramps: Code(s): R25.2 - Cramp and spasm Category: Medical (3) Plantar fasciitis: Code(s): M72.2 - Plantar fascial fibromatosis Category: Medical (4) Fibromyalgia: Code(s): M79.7 - Fibromyalgia Category: Medical Plan Patient notes significant calf cramps and plantar fascia pain and cramping. Hydrate well and she can use some magnesium at bedtime Demonstrated stretches of calf muscle and plantar fascia Patient would like to talk to a specialist regarding steroid injections for fibromyalgia and chronic pain, primarily in her back and hips She is already seeing spine sport, Dr. Koroma. Advised she discuss this with him. pt agrees Medications: New magnesium 400 mg (2 x 200 mg) PO BEDTIME 60 tabs 0RF 30 days Changed From Lantus Solostar U-100 Insulin (insulin glargine) WAQAS. No substitutions. 10 units (0.1 mL) subcut DAILY 30 days 3 mL 3RF NS E11.65 - Type 2 diabetes mellitus with hyperglycemia, Z79.4 - senior care (current) use of insulin To Lantus Solostar U-100 Insulin (insulin glargine) WAQAS. No substitutions. 14 units (0.14 mL) subcut DAILY 6 mL 3RF 30 days NS E11.65 - Type 2 diabetes mellitus with hyperglycemia, Z79.4 - technician terminal and repeater (current) use of insulin
[2025-04-23 08:36] VITALS: BP 115/66; PULSE 89; RESP 12; TEMP 36; O2SAT 98; BMI 30.8
== END 2025-04-23 09:22 | disposition home or self-care (01) ==
LOC: HO.HMCFM 08:19
PROVIDERS: PCP Family Medicine; Visit Provider Family Medicine
DX: E11.65 Type 2 diabetes mellitus with hyperglycemia (principal); Z79.4 Long term (current) use of insulin; R25.2 Cramp and spasm; M72.2 Plantar fascial fibromatosis; M79.7 Fibromyalgia

== ENCOUNTER → 2025-04-23 08:18 | Outpatient (BNVA) | payer OTHER, SELFPAY | PROVIDERS: PCP Family Medicine; Visit Provider Family Medicine | DX: E11.65 Type 2 diabetes mellitus with hyperglycemia (principal); R25.2 Cramp and spasm; M72.2 Plantar fascial fibromatosis; M79.7 Fibromyalgia; Z79.4 Long term (current) use of insulin; Z13.31 Encounter for screening for depression; Z13.39 Encounter for screening examination for other mental health and behavioral disorders | CPT/HCPCS: 96127; 99212 ==